=== PATIENT | male | born 1955 | race Caucasian/White ===

== ENCOUNTER 2017-04-30 09:10 | Inpatient (IN) | payer MEDICAID, OTHER ==
[~2017-04-30] VITALS: Ht 172.7 cm; Wt 70.0 kg
[~2017-04-30 09:10] MED LIST: BENZ1TAB PO; DIVA500T3 PO; GABA100C4 PO; HALO100I IM; MELO7.5T4 PO; MIRTA15 PO; OLAN10TA PO; TRAZ100T4 PO
[2017-04-30 09:11] VITALS: BP 130/86; PULSE 60; RESP 20; TEMP 97.7; O2SAT 96
[2017-04-30] MEDS ORDERED: TRAZ100T6 PO (09:32)
--- NOTE | 2017-04-30 09:38 | PD ---
HPI Chief Complaint: Psychiatric Symptoms Time Seen by Provider: 09:34 Travel History International Travel<30 days: No Contact w/Intl Traveler<30days: No Traveled to known affect area: No History of Present Illness HPI This is a 61-year-old male who presents to the emergency department with a history of paranoid schizophrenia reporting that his hallucinations are getting worse. He says he is hearing voices. He is not having thoughts of hurting himself or others but he said he tried to walk into the road at [facility] and that worried them and they sent him here. He denies any other complaints. PFSH Past Medical History Arthritis: Yes (IN LEGS ) Autoimmune Disease: No Blood Disorders: No Anxiety: Yes Depression: Yes Cancer: No Chemotherapy: No Chest Pain: No Congestive Heart Failure: No COPD: Yes Cerebrovascular Accident: No Diabetes: No (Per patient) Diminished Hearing: No Endocrine: No Gastrointestinal Disorders: No GERD: No Genitourinary: No Hiatal Hernia: No Immune Disorder: No Implanted Vascular Access Dvce: No Kidney Stones: No Musculoskeletal: Yes Neurologic: No Psychiatric: Yes (Inpatient, outpatient, psychotropic medications, dx of schizophrenia) Reproductive: No Respiratory: Yes (COPD) Immunizations Current: Yes Migraines: No Radiation Therapy: No Renal Failure: No Schizophrenia: Yes Seizures: No Sickle Cell Disease: No Thyroid Disease: No Ulcer: No Tetanus Vaccination: > 5 Years Influenza Vaccination: No ?: Not Past Surgical History Abdominal Surgery: Yes (GALL BLADDER REMOVED) AICD: No Arteriovenous Shunt: No Cardiac Surgery: No Cholecystectomy: Yes Ear Surgery: No Endocrine Surgery: No Eye Surgery: No Genitourinary Surgery: No Gynecologic Surgery: No Insulin Pump: No Joint Replacement: No Oral Surgery: No Pacemaker: No Thoracic Surgery: No Other Surgery: Yes Social History Alcohol Use: No Tobacco Use: Yes Substance Use: No (Patient denies. ) Allergies-Medications (Allergen,Severity, Reaction): Coded Allergies: No Known Allergies (Verified , 04/30/17) Per MAR faxed by [facility] Jono [phone]. Reported Meds & Prescriptions Reported Meds & Active Scripts Active Olanzapine 10 Mg Tab 10 Mg PO BID 15 Days Mirtazapine 15 Mg Tab 15 Mg PO HS 15 Days Divalproex ER (Divalproex Sodium) 500 Mg Tab 1,000 Mg PO HS 15 Days Reported Trazodone (Trazodone HCl) 100 Mg Tablet 100 Mg PO HS Haloperidol Decanoate Inj (Haloperidol Decanoate) 100 Mg/Ml Inj 100 Mg IM Q14D Gabapentin 100 Mg Cap 100 Mg PO TID Review of Systems Except as stated in HPI: all other systems reviewed are Neg Physical Exam Narrative GENERAL:Well appearing, no acute distress SKIN: Focused skin assessment warm and dry. HEAD: Atraumatic. Normocephalic. EYES: Pupils equal and round. No injection or drainage. ENT: Moist mucous membranes NECK: Trachea midline. CARDIOVASCULAR: Regular rate and rhythm. No murmur appreciated. RESPIRATORY: Clear to auscultation. Breath sounds equal bilaterally. GASTROINTESTINAL: Abdomen soft, non-tender, nondistended. MUSCULOSKELETAL: No obvious deformities. NEUROLOGICAL: Awake and alert. No obvious cranial nerve deficits. Moving all extremities. PSYCHIATRIC: Flat affect, acknowledging auditory hallucinations, no SI or HI Data Data Last Documented VS Vital Signs Date Time Temp Pulse Resp B/P Pulse Ox O2 Delivery O2 Flow Rate FiO2 04/30/17 09:23 65 18 04/30/17 09:11 97.7 130/86 96 Room Air Orders Complete Blood Count With Diff (04/30/17 09:36) Basic Metabolic Panel (Bmp) (04/30/17 09:36) Alcohol (Ethanol) (04/30/17 09:36) Drug Screen, Random Urine (04/30/17 09:36) Psych Screen (04/30/17 10:02) Diet Regular Basic (04/30/17 Lunch) Labs Laboratory Tests Test 04/30/17 04/30/17 09:30 11:25 White Blood Count 4.6 TH/MM3 Red Blood Count 4.58 MIL/MM3 Hemoglobin 14.1 GM/DL Hematocrit 40.5 % Mean Corpuscular Volume 88.5 FL Mean Corpuscular Hemoglobin 30.7 PG Mean Corpuscular Hemoglobin 34.7 % Concent Red Cell Distribution Width 14.9 % Platelet Count 227 TH/MM3 Mean Platelet Volume 7.5 FL Neutrophils (%) (Auto) 39.2 % Lymphocytes (%) (Auto) 43.2 % Monocytes (%) (Auto) 9.0 % Eosinophils (%) (Auto) 7.5 % Basophils (%) (Auto) 1.1 % Neutrophils # (Auto) 1.8 TH/MM3 Lymphocytes # (Auto) 2.0 TH/MM3 Monocytes # (Auto) 0.4 TH/MM3 Eosinophils # (Auto) 0.3 TH/MM3 Basophils # (Auto) 0.0 TH/MM3 CBC Comment DIFF FINAL Differential Comment Sodium Level 145 MEQ/L Potassium Level 4.2 MEQ/L Chloride Level 109 MEQ/L Carbon Dioxide Level 32.4 MEQ/L Anion Gap 4 MEQ/L Blood Urea Nitrogen 20 MG/DL Creatinine 0.80 MG/DL Estimat Glomerular Filtration 98 ML/MIN Rate Random Glucose 70 MG/DL Calcium Level 8.7 MG/DL Ethyl Alcohol Level LESS THAN 3 MG/DL Urine Opiates Screen NEG Urine Barbiturates Screen NEG Urine Amphetamines Screen NEG Urine Benzodiazepines Screen NEG Urine Cocaine Screen NEG Urine Cannabinoids Screen NEG MDM Medical Decision Making Medical Screen Exam Complete: Yes Emergency Medical Condition: Yes Interpretation(s) Afebrile, no tachycardia, normotensive No leukocytosis Electrolytes are reassuring Drug screen is negative Alcohol negative Differential Diagnosis Schizophrenia, bipolar disorder, psychosis, electrolyte abnormality Narrative Course This is a 61-year-old male who presents to the emergency department with increased auditory hallucinations. Labs are obtained which are reassuring. He has no medical complaints. I Think he is medically cleared to be evaluated by psychiatry. The plan is for admission for schizophrenia. Diagnosis Primary Impression: Schizophrenia Qualified Code: F20.89 - Other schizophrenia Admitting Information Admitting Physician Requests: it Rukhsana Farias MD Apr 30, 2017 09:38
[2017-04-30 09:50] LABS: AUTOMATED NEUTROPHIL # 1.8 TH/MM3 (1.8-7.7); BASOPHIL % 1.1 % (0.0-2.0); EOSINOPHIL # 0.3 TH/MM3 (0-0.4); EOSINOPHIL % 7.5 % (0.0-4.0); HEMATOCRIT 40.5 % (39.0-51.0); HEMO FLAGS DIFF FINAL; LYMPH % 43.2 % (9.0-44.0); MEAN CELL VOLUME 88.5 FL (80.0-100.0); MEAN CORPUSCULAR HEMOGLOBIN 30.7 PG (27.0-34.0); MEAN CORPUSCULAR HGB CONC 34.7 % (32.0-36.0); NEUT % 39.2 % (16.0-70.0); PLATELET COUNT 227 TH/MM3 (150-450); RED BLOOD COUNT 4.58 MIL/MM3 (4.50-5.90); RED CELL DISTRIBUTION WIDTH 14.9 % (11.6-17.2); WHITE BLOOD COUNT 4.6 TH/MM3 (4.0-11.0)
[2017-04-30 10:20] LABS: ANION GAP 4 MEQ/L (5-15); BICARBONATE 32.4 MEQ/L (21.0-32.0); BLOOD UREA NITROGEN 20 MG/DL (7-18); CHLORIDE 109 MEQ/L (98-107); GLOMERULAR FILTRATION RATE 98 ML/MIN (>89); POTASSIUM 4.2 MEQ/L (3.5-5.1); SODIUM (NA) 145 MEQ/L (136-145)
[2017-04-30 11:58] LABS: AMPHETAMINE, URINE NEG (NEG); BARBITURATES, URINE NEG (NEG); COCAINE, URINE NEG (NEG)
[2017-04-30] MEDS ORDERED: BENZTROPINE MESYLATE 1 MG TAB PO PRN (13:30)
[2017-04-30] MEDS ORDERED: MAGNESIUM HYDROXIDE SUSP 30 ML CUP PO PRN (13:30)
[2017-04-30] MEDS ORDERED: ACETAMINOPHEN 325 MG TAB PO PRN (13:30)
[2017-04-30] MEDS ORDERED: diphenhydrAMINE HCL 50 MG/ML VIAL IM PRN (13:30)
[2017-04-30] MEDS ORDERED: LORazepam 2 MG/ML VIAL IM PRN ×2 (13:30)
[2017-04-30] MEDS ORDERED: LORazepam 0.5 MG TAB PO PRN (13:30)
[2017-04-30] MEDS ORDERED: LORazepam 1 MG TAB PO PRN (13:30)
[2017-04-30] MEDS ORDERED: ALUMINUM/MAGNESIUM/SIMETH 30 ML CUP PO PRN (13:30)
[2017-04-30] MEDS ORDERED: diphenhydrAMINE HCL 50 MG CAP PO PRN (13:30)
--- NOTE | 2017-04-30 13:48 | HHI.HP ---
Provisional Diagnosis Admission Date Apr 30, 2017 at 13:23 [place]. Chronic paranoid schizophrenia Certification of Person's Competence To Provide Express and Informed Consent I have personally examined Evert Flowers , a person being served at [facility] on, Apr 30, 2017 13:38. Express and informed consent means consent voluntarily given in writing, by a competent person, after sufficient explanation and disclosure of the subject matter involved to enable the person to make a knowing and willful decision without any element of force, fraud, deceit, duress, or other form of constraint or coercion. This person is 18 years of age or older, is not now known to be incompetent to consent to treatment with a guardian advocate, and does not have a health care surrogate or proxy currently making medical treatment decisions. I have found this person to be one of the following: [X] Competent to provide express and informed consent, as defined above, for voluntary admission to this facility and is competent to provide express and informed consent for treatment. He/she has the consistent capacity to make well reasoned, willful, and knowing decisions concerning his or her medical or mental health treatment. The person fully and consistently understands the purpose of the admission for examination/placement and is fully capable of personally exercising all rights assured [place] Incompetent to provide express and informed consent to voluntary admission, and this is incompetent to provide express and informed consent to treatment. The person must be transferred to involuntary status and a petition for a guardian advocate filed with the Circuit Court. [] Refusing to provide express and informed consent to voluntary admission but is competent to provide express and informed consent for treatment. The person must be discharged or transferred to involuntary status. Form shall be completed within 24 hours of a person's arrival at the receiving facility and filed in the clinical record of each person: 1. Admitted on a voluntary basis 2. Permitted to provide express and informed consent to his/her own treatment 3. Allowed to transfer from involuntary to voluntary status 4. Prior to permitting a person to consent to his or her own treatment after having been previously found incompetent to consent to treatment. History of Present Illness Capacity: Has Capacity HPI This is a 61-year-old male with a multiyear history of chronic paranoid schizophrenia admitted for psychotic symptoms and dangerous behavior. Apparently he resides at an [facility], and was lying down in the street, having to be avoided by cars. The patient is complaining of auditory hallucinations which have been occurring for days and are constant and unrelenting. These hallucinations are critical and denigrating to the patient. He is unable to resist them and states his current medications have not been sufficiently effective to subdue them. The patient also reports paranoia in general and is fearful of other people including medical and mental health care specialist. He is worried that the medicines he is taking are poisoning him. Indeed, the patient appears to have facial asymmetry and a speech impediment which may be due to tardive dyskinesia. The patient is currently denying suicidal or homicidal ideation, plan or intent. However, his actions represent poor judgment, hallucinations, paranoia, thought blocking and he is at high risk for self-harm. Patient reports he has been compliant with his Haldol and Zyprexa. Furthermore , he denies a history of alcohol or substance abuse. Review of Systems Except as stated in HPI: all other systems reviewed are Neg Past Psych History Psychological trauma history Patient has been previously admitted here at [place] with a diagnosis of schizophrenia he denies psychological traumas. Violence risk - others (6 mos) Minimal Violence risk - self (6 mos) High Substance Abuse History Drugs/Alcohol past 12 months Denied Past Family Social History Coded Allergies: No Known Allergies (Verified , 04/30/17) Per MAR faxed by [facility]o [phone]. Active Scripts Olanzapine 10 Mg Tab10 Mg PO BID 15 Days Ref 1 Prov:Jose Luis Turner MD 10/20/16 Mirtazapine 15 Mg Tab15 Mg PO HS 15 Days Ref 1 Prov:Jose Luis Turner MD 10/20/16 Divalproex ER 500 Mg Tab1,000 Mg PO HS 15 Days Ref 1 Prov:Jose Luis Turner MD 10/20/16 Reported Medications Trazodone 100 Mg [id number] Mg PO HS #30 TAB Ref 0 04/30/17 Meloxicam 7.5 Mg Tab7.5 Mg PO DAILY Ref 0 10/17/16 Haloperidol Decanoate Inj 100 Mg/Ml [id number] Mg IM Q14D #1 VIAL Ref 0 10/17/16 Gabapentin 100 Mg [id number] Mg PO TID #90 CAP Ref 0 10/17/16 Current Medications Medications (Trade) Dose Ordered Sig/Feroz Route Start Time Stop Time Status Last Admin (Ativan) 1 mg Q6H PRN PO 04/30/17 13:30 UNV (Ativan Inj) 1 mg Q6H PRN IM 04/30/17 13:30 UNV (Ativan) 0.5 mg Q12H PRN PO 04/30/17 13:30 UNV (Ativan Inj) 0.5 mg Q12H PRN IM 04/30/17 13:30 UNV (Benadryl) 50 mg Q6H PRN PO 04/30/17 13:30 UNV (Benadryl Inj) 50 mg Q6H PRN IM 04/30/17 13:30 UNV (Tylenol) 650 mg Q4H PRN PO 04/30/17 13:30 UNV (Milk Of Magnesia Liq) 30 ml DAILY PRN PO 04/30/17 13:30 UNV (Mag-Al Plus Susp Liq) 30 ml Q6H PRN PO 04/30/17 13:30 UNV (Cogentin) 1 mg Q12H PRN PO 04/30/17 13:30 UNV Family History Denied for mental illness and substance abuse as well as alcoholism Social History Patient is unemployed. He receives Social Security disability. He is not . He denies a history of alcohol or drug abuse. Patient's Strengths (min. 2) Verbal and resilient. Physical Exam GENERAL: SKIN: Warm and dry. HEAD: Normocephalic. EYES: No scleral icterus. No injection or drainage. NECK: Supple, trachea midline. No JVD or lymphadenopathy. CARDIOVASCULAR: Regular rate and rhythm without murmurs, gallops, or rubs. RESPIRATORY: Breath sounds equal bilaterally. No accessory muscle use. GASTROINTESTINAL: Abdomen soft, non-tender, nondistended. MUSCULOSKELETAL: No cyanosis, or edema. BACK: Nontender without obvious deformity. No CVA tenderness. Vital Signs Vital Signs Date Time Temp Pulse Resp B/P Pulse Ox O2 Delivery O2 Flow Rate FiO2 04/30/17 09:23 65 18 04/30/17 09:11 97.7 130/86 96 Room Air Mental Status Examination Speech: Slow, Other Orientation: x3 Memory: Unremarkable Thought Process: Thought Blocking Thought Content: Bizarre thinking, Paranoid Hallucination Type: Auditory Attention and Concentration: Abnormal Suicidal Ideation: No Previous Suicide Attempts: Yes Homicidal Ideation: No Previous Homicide Attempts: No Insight: Fair Judgment: Unrealistic Affect: Anxious Mood: Anxious Motor Activity: Normal gait Assessment & Plan Problem List: (1) Acute exacerbation of chronic paranoid schizophrenia ICD Code: F20.0 Assessment & Plan Estimated LOS: days this is a 61-year-old man with a long history of chronic paranoid schizophrenia, currently having an acute exacerbation. He is having auditory hallucinations and increasing paranoia. The hallucinations have not been responsive to treatment with Haldol and Zyprexa. The patient put himself in front of traffic in the middle of the street today. He does not appear to have adequate insight or judgment with regard to his behavior. He continues to appear to respond to internal stimuli. He is considered at high risk for self- harm. The patient is being admitted for observation, evaluation and alteration of medications. He indicates that the Haldol and Zyprexa he has been taking are not working. He has not tried Abilify and this physician started him on this medicine with the idea that he may be placed on long-acting Abilify before he leaves. He will be remaining on close observation for now. This physician also ordered a CBC and comprehensive metabolic profile to ensure he does not have a infectious process or metabolic process which is exacerbating his underlying psychosis. For this reason, he will also get a TSH level and case hyper or hypo-thyroidism is causing his psychosis. A Depakote level will be obtained to determine if it is therapeutic and if the patient is being compliant with that medication. The patient will also have vitamin B 12 and vitamin D levels checked because cognitive impairment can be the result of a lack of vitamin D or B-12. Finally, we will obtain an EKG to rule out any cardiac conduction problems which might be exacerbated by his current multiple antipsychotics. This physician spoke with the patient's nurse regarding his current and recent behavior. This physician will contact the patient's patient case coordinator to obtain further history and appropriate disposition planning. Dustin Cary MD Apr 30, 2017 13:48
[2017-04-30 14:10] VITALS: BP 130/93; PULSE 66; RESP 20; O2SAT 96
[2017-04-30 16:20] VITALS: BP 119/77; PULSE 71; RESP 18; TEMP 97.2; O2SAT 97
[2017-04-30] MEDS: GABAPENTIN 100 MG CAP PO SCH (18:00)
[2017-04-30] MEDS: MIRTAZAPINE 15 MG TAB PO SCH (21:20)
[2017-04-30] MEDS: ARIPiprazole 10 MG TAB PO SCH (21:20)
[2017-04-30] MEDS: traZODone HCL 100 MG TAB PO SCH (21:20)
[2017-04-30] MEDS: DIVALPROEX SODIUM E.R. 500 MG TAB PO SCH (21:21)
[2017-05-01 05:33] VITALS: BP 106/68; PULSE 50; RESP 16; TEMP 97.4; O2SAT 93
[2017-05-01] MEDS: GABAPENTIN 100 MG CAP PO SCH ×3 (08:17→17:53)
[2017-05-01] MEDS: MELOXICAM 7.5 MG TAB PO SCH (08:17)
[2017-05-01] MEDS ORDERED: PNEUMOCOCCAL POLYVALENT INJ 25 MCG/0.5 ML SYR IM ONE (10:00)
[2017-05-01 10:34] LABS: AUTOMATED NEUTROPHIL # 2.3 TH/MM3 (1.8-7.7); BASOPHIL % 0.9 % (0.0-2.0); EOSINOPHIL # 0.3 TH/MM3 (0-0.4); EOSINOPHIL % 5.8 % (0.0-4.0); HEMO FLAGS DIFF FINAL; LYMPH % 38.5 % (9.0-44.0); LYMPHOCYTE # 1.9 TH/MM3 (1.0-4.8); MEAN CELL VOLUME 89.2 FL (80.0-100.0); MEAN CORPUSCULAR HEMOGLOBIN 30.6 PG (27.0-34.0); MEAN CORPUSCULAR HGB CONC 34.3 % (32.0-36.0); MONO % 8.9 % (0.0-8.0); NEUT % 45.9 % (16.0-70.0); PLATELET COUNT 201 TH/MM3 (150-450); RED BLOOD COUNT 4.27 MIL/MM3 (4.50-5.90); RED CELL DISTRIBUTION WIDTH 14.5 % (11.6-17.2)
[2017-05-01 10:52] LABS: ALT (GPT) 21 U/L (12-78); ANION GAP 5 MEQ/L (5-15); AST (GOT) 12 U/L (15-37); BICARBONATE 31.7 MEQ/L (21.0-32.0); BLOOD UREA NITROGEN 17 MG/DL (7-18); CHLORIDE 106 MEQ/L (98-107); GLOMERULAR FILTRATION RATE 98 ML/MIN (>89); SODIUM (NA) 143 MEQ/L (136-145)
[2017-05-01 11:17] LABS: ALKALINE PHOSPHATASE 46 U/L (45-117); LDL CHOLESTEROL 82 MG/DL (0-99); TOTAL BILIRUBIN ADULT 0.3 MG/DL (0.2-1.0)
[2017-05-01 18:05] VITALS: BP 132/60; PULSE 61; RESP 18; TEMP 97.4; O2SAT 98
--- NOTE | 2017-05-01 18:55 | HHI.PYPN ---
Subjective Remarks Pt seen and discussed with staff. Pt reports that his thoughts are clear today and he slept better last night. He has been pacing hallways and continues to respond to internal stimuli. He is compliant with medication and denies side effects. No SI/HI Objective Alert: Yes [place]: Person, Place, Date Mood: Calm Affect: Flat Memory Intact: Immediate, Recent, Remote Hallucinations: Auditory Delusions: Yes Delusion Type: Grandiose, Paranoid Suicidal: Ideation (denies) Homicidal: Ideation (denies) Insight/Judgment poor Labs Test 05/01/17 10:03 White Blood Count 5.0 TH/MM3 Red Blood Count 4.27 MIL/MM3 Hemoglobin 13.0 GM/DL Hematocrit 38.0 % Mean Corpuscular Volume 89.2 FL Mean Corpuscular Hemoglobin 30.6 PG Mean Corpuscular Hemoglobin 34.3 % Concent Red Cell Distribution Width 14.5 % Platelet Count 201 TH/MM3 Mean Platelet Volume 7.7 FL Neutrophils (%) (Auto) 45.9 % Lymphocytes (%) (Auto) 38.5 % Monocytes (%) (Auto) 8.9 % Eosinophils (%) (Auto) 5.8 % Basophils (%) (Auto) 0.9 % Neutrophils # (Auto) 2.3 TH/MM3 Lymphocytes # (Auto) 1.9 TH/MM3 Monocytes # (Auto) 0.4 TH/MM3 Eosinophils # (Auto) 0.3 TH/MM3 Basophils # (Auto) 0.0 TH/MM3 CBC Comment DIFF FINAL Differential Comment Sodium Level 143 MEQ/L Potassium Level 4.0 MEQ/L Chloride Level 106 MEQ/L Carbon Dioxide Level 31.7 MEQ/L Anion Gap 5 MEQ/L Blood Urea Nitrogen 17 MG/DL Creatinine 0.80 MG/DL Estimat Glomerular Filtration 98 ML/MIN Rate Random Glucose 69 MG/DL Calcium Level 8.2 MG/DL Total Bilirubin 0.3 MG/DL Aspartate Amino Transf 12 U/L (AST/SGOT) Alanine Aminotransferase 21 U/L (ALT/SGPT) Alkaline Phosphatase 46 U/L Total Protein 6.8 GM/DL Albumin 2.9 GM/DL Triglycerides Level 92 MG/DL Cholesterol Level 129 MG/DL LDL Cholesterol 82 MG/DL HDL Cholesterol 29.0 MG/DL Cholesterol/HDL Ratio 4.44 RATIO Vitamin B12 Level 499 PG/ML 25-Hydroxy Vitamin D Total 37.9 ng/ML Thyroid Stimulating Hormone 2.480 uIU/ML 3rd Gen Valproic Acid (Depakene) Level 76 MCG/ML Vitals/IOs Vital Signs Date Time Temp Pulse Resp B/P Pulse Ox O2 Delivery O2 Flow Rate FiO2 05/01/17 18:05 97.4 61 18 132/60 98 04/30/17 14:10 Room Air Assessment & Plan Problem List: (1) Acute exacerbation of chronic paranoid schizophrenia ICD Code: F20.0 Assessment & Plan Continue current tx plan. Estimated LOS: days Justification for Cont. Inpt. impairments in reality construction Velma Rowe MD May 01, 2017 18:55
[2017-05-01] MEDS: ARIPiprazole 10 MG TAB PO SCH (21:13)
[2017-05-01] MEDS: MIRTAZAPINE 15 MG TAB PO SCH (21:13)
[2017-05-01] MEDS: traZODone HCL 100 MG TAB PO SCH (21:13)
[2017-05-01] MEDS: DIVALPROEX SODIUM E.R. 500 MG TAB PO SCH (21:13)
[2017-05-02 04:57] VITALS: BP 117/68; PULSE 49; RESP 16; TEMP 97.6; O2SAT 96
[2017-05-02] MEDS: GABAPENTIN 100 MG CAP PO SCH ×3 (08:51→17:17)
[2017-05-02] MEDS: MELOXICAM 7.5 MG TAB PO SCH (08:51)
--- NOTE | 2017-05-02 15:56 | HHI.PYPN ---
Subjective Remarks Pt seen and discussed with staff. He has been sleeping most of the day, but has come out for meals. He remains internally preoccupied and has been observed having conversations with unseen entities. Compliant with medications. No SI/HI Objective Alert: Yes [place]: Person, Place, Date Mood: Calm Affect: Flat Memory Intact: Immediate, Recent, Remote Hallucinations: Auditory Delusions: Yes Delusion Type: Paranoid Suicidal: Ideation (denies) Homicidal: Ideation (denies) Insight/Judgment poor Vitals/IOs Vital Signs Date Time Temp Pulse Resp B/P Pulse Ox O2 Delivery O2 Flow Rate FiO2 05/02/17 04:57 97.6 49 16 117/68 96 04/30/17 14:10 Room Air Intake and Output 05/01/17 05/01/17 05/02/17 08:00 16:00 00:00 Intake Total 320 ml Balance 320 ml Assessment & Plan Problem List: (1) Acute exacerbation of chronic paranoid schizophrenia ICD Code: F20.0 Assessment & Plan Continue current tx plan. Estimated LOS: days Justification for Cont. Inpt. risk of decompensation Velma Rowe MD May 02, 2017 15:56
[2017-05-02 18:28] VITALS: BP 103/60; PULSE 58; RESP 18; TEMP 99.1; O2SAT 96
[2017-05-02] MEDS: traZODone HCL 100 MG TAB PO SCH (20:44)
[2017-05-02] MEDS: DIVALPROEX SODIUM E.R. 500 MG TAB PO SCH (20:45)
[2017-05-02] MEDS: ARIPiprazole 10 MG TAB PO SCH (20:45)
[2017-05-02] MEDS: MIRTAZAPINE 15 MG TAB PO SCH (20:45)
[2017-05-03] MEDS: GABAPENTIN 100 MG CAP PO SCH ×2 (09:00→13:00)
[2017-05-03] MEDS: MELOXICAM 7.5 MG TAB PO SCH (09:00)
[2017-05-03] MEDS ORDERED: GABA100C4 PO (12:42)
[2017-05-03] MEDS ORDERED: MIRTA15 PO (12:42)
[2017-05-03] MEDS ORDERED: TRAZ100T6 PO (12:42)
[2017-05-03] MEDS ORDERED: DIVA500T3 PO (12:42)
[2017-05-03] MEDS ORDERED: ARIP400I IM (12:42)
[2017-05-03] MEDS ORDERED: ARIP1TAB12 PO (12:42)
--- NOTE | 2017-05-03 12:43 | HHI.DS ---
Psychiatry Discharge Summary Inpatient Psychiatric care?: Yes Advance Directive: No Reason Not Provided: Due to Patient Condition Mental Health AdvanceDirective: No Health Care Proxy: No Admission Admission Date Apr 30, 2017 at 13:23 Admission Diagnosis: (1) Schizophrenia ICD Code: F20.9 Brief History This is a 61-year-old male with a multiyear history of chronic paranoid schizophrenia admitted for psychotic symptoms and dangerous behavior. Apparently he resides at an [facility], and was lying down in the street, having to be avoided by cars. The patient is complaining of auditory hallucinations which have been occurring for days and are constant and unrelenting. These hallucinations are critical and denigrating to the patient. He is unable to resist them and states his current medications have not been sufficiently effective to subdue them. The patient also reports paranoia in general and is fearful of other people including medical and mental health floor care technician. He is worried that the medicines he is taking are poisoning him. Indeed, the patient appears to have facial asymmetry and a speech impediment which may be due to tardive dyskinesia. The patient is currently denying suicidal or homicidal ideation, plan or intent. However, his actions represent poor judgment, hallucinations, paranoia, thought blocking and he is at high risk for self-harm. Patient reports he has been compliant with his Haldol and Zyprexa. Furthermore , he denies a history of alcohol or substance abuse. Tobacco Use In Past 30 Days: No Tobacco Past 30 Days Alcohol Use: Never Hospital Course Patient was admitted to a locked, inpatient psychiatric unit. Appropriate precautions were in place throughout patient's hospital stay. The patient was seen and examined daily on the unit by psychiatry and also visited by counselor. Psychotropic medications were adjusted. The patient will be started on long-acting injectable Abilify prior to discharge as he is tolerating oral agent well to improve adherence and promote stability in the community. Patient had improvement in his presenting psychiatric symptoms during the course of his hospital stay. He remained in good behavioral control and there was no evidence of any suicidality or homicidality on the inpatient unit. Charting indicates that the patient has been sleeping and eating well. Counselor has called to patient's facility, and they are agreeable to accepting the patient back today. On the day of discharge: Patient seen and examined with nurse. Chart reviewed. Case discussed with nursing after. No staff. The patient has been no behavioral problem overnight. On my examination today, the patient is calm and cooperative. He feels improved versus admission. He feels ready to leave the hospital and return to his facility at this time. He denies any suicidal or homicidal ideation, intent or plan. He denies any audiovisual hallucinations. He denies any command auditory hallucinations. I can elicit no delusional material. Mood is stable and I can elicit no depressive or hypomanic/manic symptoms. He denies any side effects from medications. He offers no physical complaints. Weighing the acute, chronic, and protective factors and based on the available evidence, I process developer to a reasonable degree of medical certainty that the patient is at low imminent risk of harm to self or others from a mental illness as defined under the [place] act and his level of function is adequate for outpatient care. Patient will be discharged back to facility today with psychiatric follow-up as arranged by counselor. Patient is also follow-up with primary care. Patient is to return to the psychiatric emergency room for any concerning psychiatric symptoms. Results Blood Pressure 103 / 60 Vital Signs Date Time Temp Pulse Resp B/P Pulse Ox O2 Delivery O2 Flow Rate FiO2 05/02/17 18:28 99.1 58 18 103/60 96 04/30/17 14:10 Room Air Laboratory Tests Test 05/01/17 10:03 Red Blood Count 4.27 MIL/MM3 (4.50-5.90) Hematocrit 38.0 % (39.0-51.0) Monocytes (%) (Auto) 8.9 % (0.0-8.0) Eosinophils (%) (Auto) 5.8 % (0.0-4.0) Random Glucose 69 MG/DL (74-106) Calcium Level 8.2 MG/DL (8.5-10.1) Aspartate Amino Transf 12 U/L (15-37) (AST/SGOT) Albumin 2.9 GM/DL (3.4-5.0) HDL Cholesterol 29.0 MG/DL (40.0-60.0) Laboratory Results Test 05/01/17 10:03 Triglycerides Level 92 MG/DL (42-150) Cholesterol Level 129 MG/DL (120-200) LDL Cholesterol 82 MG/DL (0-99) HDL Cholesterol 29.0 MG/DL (40.0-60.0) Valproic Acid (Depakene) Level 76 MCG/ML (50-100) Summary of Procedures None done Imaging None done Pending results at discharge: No Medications # of Antipsychotic meds at D/C: 1 Approp Antipsych med options 1 - Minimum of three failed multiple trials of monotherapy. 2 - Documented plan to taper to monotherapy due to previous use of multiple meds OR cross-taper in progress at D/C. 3 - Documentation of augmentation of Clozapine. 4 - Justification other than those listed in allowable values 1-3, document here : Discharge Discharge Date: May 03, 2017 Discharge Diagnosis: (1) Schizophrenia Diagnosis: Principal (stabilized) ICD Code: F20.9 GAF on discharge is 55. Mental Status Exam at Disch Patient is in hospital gown. He is well groomed. He is awake and alert and oriented to person and hospital at least. No evidence of delirium. No abnormal motor movements noted. Speech is within normal limits for rate, tone and volume. Language and fund of knowledge seemed average. Focus and concentration grossly intact. Memory grossly intact on clinical exam. Mood is fair and affect is blunted. Thought process linear. No loosening of associations. No evident delusional material. Denies audiovisual hallucinations and does not appear internally preoccupied at this time. Denies suicidal or homicidal ideation, intent or plan. Insight and judgment are likely chronically poor. Pt Condition on Discharge: Stable Discharge Disposition: ACLF/ULYSSES Discharge Instructions Diet Instructions: As Tolerated, No Restrictions Activities you can perform: Weight Bearing as Jolynn Scheduled Appointment: as per counselor's notes New Medications: Aripiprazole ER Inj (Abilify Maintena ER Inj) 400 Mg Susp 400 MG IM Q28D This dose of Abilify Maintena is due on 05/31/17. Mental Health # 1 Ref 0 INJECTION Aripiprazole (Aripiprazole) 10 Mg Tab 10 MG PO HS Continue Abilify by mouth for 2 weeks then stop. Be sure to get your next Abilify Maintena injection. Mental Health Days 15 Ref 1 TAB Continued Medications: Divalproex ER (Divalproex ER) 500 Mg Tab 1000 MG PO HS Mental Health Days 15 Ref 1 TAB (This prescription has been renewed) Gabapentin (Gabapentin) 100 Mg Cap 100 MG PO TID Health Days 15 Ref 1 CAP (This prescription has been renewed) Meloxicam (Meloxicam) 7.5 Mg Tab 7.5 MG PO DAILY Arthritis Pain Ref 0 TAB Mirtazapine (Mirtazapine) 15 Mg Tab 15 MG PO HS Mental Health Days 15 Ref 1 TAB (This prescription has been renewed) Trazodone (Trazodone) 100 Mg Tablet 100 MG PO HS Sleep Days 15 Ref 1 TAB (This prescription has been renewed) Discontinued Medications: Haloperidol Decanoate Inj (Haloperidol Decanoate Inj) 100 Mg/Ml Inj 100 MG IM Q14D Schizophrenia #1 Ref 0 VIAL Olanzapine (Olanzapine) 10 Mg Tab 10 MG PO BID Mental Health Days 15 Ref 1 TAB Discharge Time <= 30 minutes Discharge/Advance Care Plan Health Problems: (1) Acute exacerbation of chronic paranoid schizophrenia Goals to promote your health * To prevent worsening of your condition and complications * To maintain your health at the optimal level Directions to meet your goals Take your medications as prescribed Follow your dietary instruction Follow activity as directed Keep your appointments as scheduled Take your immunizations and boosters as scheduled If your symptoms worsen call your PCP, if no PCP go to Urgent Care Center or Emergency Room For 31/05 questions related to your inpatient stay or results of tests pending at discharge, please contact Dr. Jose Luis Turner at Smoking is Dangerous to Your Health. Avoid second hand smoking Problem Qualifiers (1) Schizophrenia: Qualified Code: F20.0 - Paranoid schizophrenia Jose Luis Turner MD May 03, 2017 12:43
[2017-05-03] MEDS ORDERED: ABILIFY MAINTENA 400 MG IM SCH (14:00)
[2017-05-03 15:33] LABS: HEMOGLOBIN A1a 1.2 %; HEMOGLOBIN A1b 0.8 %; HEMOGLOBIN Ao 86.2 %; HEMOGLOBIN F 1.2 %; HEMOGLOBIN LA1C 1.2 %; HEMOGLOBIN P3 3.4 %
== END 2017-05-03 16:15 | DRG 885 ==
LOC: NEPD 09:10 → NEDA 13:23 → H260 14:40
PROVIDERS: ADMIT Psychiatry & Neurology Psychiatry; ATTEND Psychiatry & Neurology Psychiatry
DX: F20.0 Paranoid schizophrenia (principal); J44.9 Chronic obstructive pulmonary disease, unspecified; R47.9 Unspecified speech disturbances; M19.90 Unspecified osteoarthritis, unspecified site
CPT/HCPCS: 80048; 80053; 80061; 80164; 80307; 82306; 82607; 83036; 84443; 85025

== ENCOUNTER 2017-05-18 21:44 | Emergency (ER) | payer MEDICAID, OTHER ==
[~2017-05-18] VITALS: Ht 172.7 cm; Wt 70.0 kg
[~2017-05-18 21:44] MED LIST changes: +ARIP1TAB12 PO; +ARIP400I IM; -BENZ1TAB PO; -HALO100I IM; -OLAN10TA PO; -TRAZ100T4 PO; +TRAZ100T6 PO
[2017-05-18 21:46] VITALS: BP 118/83; PULSE 72; RESP 16
--- NOTE | 2017-05-18 21:57 | PD ---
Physical Exam Date Seen by Provider: May 18, 2017 Time Seen by Provider: 21:55 Narrative 61 yo male here for psych eval. Sent here by his residence for evaluation of suicidal statement. History of paranoid schizophrenic. Well known to staff with multiple admissions in the past. He was "dropped off" by someone from the assisted living facility where he resides. Vitals are stable in triage. Awaiting Bed placement. Data Data Last Documented VS Vital Signs Date Time Temp Pulse Resp B/P Pulse Ox O2 Delivery O2 Flow Rate FiO2 05/18/17 21:46 72 16 118/83 Room Air [facility] Medical Record Reviewed: Yes Supervised Visit with DAVIAN: No Raheem Santizo May 18, 2017 21:57
[2017-05-18 22:00] VITALS: TEMP 98; O2SAT 99
[2017-05-18] MEDS ORDERED: HALO5TAB PO (22:42)
[2017-05-18 23:40] LABS: AUTOMATED NEUTROPHIL # 3.1 TH/MM3 (1.8-7.7); BASOPHIL % 0.4 % (0.0-2.0); EOSINOPHIL # 0.1 TH/MM3 (0-0.4); EOSINOPHIL % 1.8 % (0.0-4.0); HEMATOCRIT 42.6 % (39.0-51.0); HEMO FLAGS DIFF FINAL; LYMPH % 46.4 % (9.0-44.0); LYMPHOCYTE # 3.2 TH/MM3 (1.0-4.8); MEAN CELL VOLUME 89.9 FL (80.0-100.0); MEAN CORPUSCULAR HEMOGLOBIN 30.5 PG (27.0-34.0); MEAN CORPUSCULAR HGB CONC 33.9 % (32.0-36.0); MONO % 6.8 % (0.0-8.0); NEUT % 44.6 % (16.0-70.0); PLATELET COUNT 210 TH/MM3 (150-450); RED BLOOD COUNT 4.73 MIL/MM3 (4.50-5.90); RED CELL DISTRIBUTION WIDTH 15.2 % (11.6-17.2); WHITE BLOOD COUNT 6.9 TH/MM3 (4.0-11.0)
[2017-05-19 00:11] LABS: ANION GAP 7 MEQ/L (5-15); AST (GOT) 20 U/L (15-37); BICARBONATE 29.1 MEQ/L (21.0-32.0); BLOOD UREA NITROGEN 20 MG/DL (7-18); CHLORIDE 107 MEQ/L (98-107); GLOMERULAR FILTRATION RATE 80 ML/MIN (>89); POTASSIUM 3.8 MEQ/L (3.5-5.1); SODIUM (NA) 143 MEQ/L (136-145)
[2017-05-19 00:12] LABS: ALT (GPT) 26 U/L (12-78)
[2017-05-19 00:14] LABS: ALKALINE PHOSPHATASE 50 U/L (45-117); TOTAL BILIRUBIN ADULT 0.5 MG/DL (0.2-1.0)
--- NOTE | 2017-05-19 00:56 | PD ---
HPI . Delusions Chief Complaint: Psychiatric Symptoms Time Seen by Provider: 23:07 Travel History International Travel<30 days: No Contact w/Intl Traveler<30days: No Traveled to known affect area: No History of Present Illness HPI This patient presents with a chief complaint of delusions. He states that they started when he was started on Haldol. He denies any homicidal or suicidal ideation. He states that he is not hearing any voices. This patient lives in an assisted living facility and was dropped off here by that facility. He has no medical complaints. PFSH Past Medical History Arthritis: Yes (IN LEGS ) Autoimmune Disease: No Blood Disorders: No Anxiety: Yes Depression: Yes Cancer: No Chemotherapy: No Chest Pain: No Congestive Heart Failure: No COPD: Yes Cerebrovascular Accident: No Diminished Hearing: No Endocrine: No Gastrointestinal Disorders: No GERD: No Genitourinary: No Hiatal Hernia: No Immune Disorder: No Implanted Vascular Access Dvce: No Kidney Stones: No Musculoskeletal: Yes Neurologic: No Psychiatric: Yes Reproductive: No Respiratory: Yes (COPD) Immunizations Current: Yes Migraines: No Radiation Therapy: No Renal Failure: No Schizophrenia: Yes Seizures: No Sickle Cell Disease: No Thyroid Disease: No Ulcer: No Tetanus Vaccination: Unknown Influenza Vaccination: No Past Surgical History Abdominal Surgery: Yes (GALL BLADDER REMOVED) AICD: No Arteriovenous Shunt: No Cardiac Surgery: No Cholecystectomy: Yes Ear Surgery: No Endocrine Surgery: No Eye Surgery: No Genitourinary Surgery: No Gynecologic Surgery: No Insulin Pump: No Joint Replacement: No Oral Surgery: No Pacemaker: No Thoracic Surgery: No Other Surgery: Yes Social History Alcohol Use: Yes Tobacco Use: Yes Substance Use: No (Patient denies. ) Allergies-Medications (Allergen,Severity, Reaction): Coded Allergies: No Known Allergies (Verified , 04/30/17) Per MAR faxed by [employer] [phone]. Reported Meds & Prescriptions Reported Meds & Active Scripts Active Trazodone (Trazodone HCl) 100 Mg Tablet 100 Mg PO HS 15 Days Mirtazapine 15 Mg Tab 15 Mg PO HS 15 Days Divalproex ER (Divalproex Sodium) 500 Mg Tab 1,000 Mg PO HS 15 Days Gabapentin 100 Mg Cap 100 Mg PO TID 15 Days Reported Haloperidol 5 Mg Tab 5 Mg PO BID Meloxicam 7.5 Mg Tab 7.5 Mg PO DAILY Review of Systems Psychiatric: Positive: Disorder of Thought Physical Exam Narrative GENERAL: Awake and alert and in no acute distress. SKIN: Warm and dry. HEAD: Atraumatic. Normocephalic. EYES: Pupils equal and round. NECK: Trachea midline. CARDIOVASCULAR: Regular rate and rhythm. RESPIRATORY: No accessory muscle use. MUSCULOSKELETAL: No obvious deformities. No edema. NEUROLOGICAL: Awake and alert. No obvious cranial nerve deficits. Motor grossly within normal limits. Normal speech. PSYCHIATRIC: Appropriate mood and affect; insight and judgment poor. The patient did not appear to be responding to any internal stimuli during my evaluation. Data Data Last Documented VS Vital Signs Date Time Temp Pulse Resp B/P Pulse Ox O2 Delivery O2 Flow Rate FiO2 05/18/17 22:00 98.0 99 05/18/17 21:46 72 16 118/83 Room Air Orders Complete Blood Count With Diff (05/18/17 23:07) Comprehensive Metabolic Panel (05/18/17 23:07) Psych Screen (05/18/17 23:07) Drug Screen, Random Urine (05/18/17 23:07) Alcohol (Ethanol) (05/18/17 23:07) Labs Laboratory Tests Test 05/18/17 23:25 White Blood Count 6.9 TH/MM3 Red Blood Count 4.73 MIL/MM3 Hemoglobin 14.4 GM/DL Hematocrit 42.6 % Mean Corpuscular Volume 89.9 FL Mean Corpuscular Hemoglobin 30.5 PG Mean Corpuscular Hemoglobin 33.9 % Concent Red Cell Distribution Width 15.2 % Platelet Count 210 TH/MM3 Mean Platelet Volume 7.7 FL Neutrophils (%) (Auto) 44.6 % Lymphocytes (%) (Auto) 46.4 % Monocytes (%) (Auto) 6.8 % Eosinophils (%) (Auto) 1.8 % Basophils (%) (Auto) 0.4 % Neutrophils # (Auto) 3.1 TH/MM3 Lymphocytes # (Auto) 3.2 TH/MM3 Monocytes # (Auto) 0.5 TH/MM3 Eosinophils # (Auto) 0.1 TH/MM3 Basophils # (Auto) 0.0 TH/MM3 CBC Comment DIFF FINAL Differential Comment Sodium Level 143 MEQ/L Potassium Level 3.8 MEQ/L Chloride Level 107 MEQ/L Carbon Dioxide Level 29.1 MEQ/L Anion Gap 7 MEQ/L Blood Urea Nitrogen 20 MG/DL Creatinine 0.95 MG/DL Estimat Glomerular Filtration 80 ML/MIN Rate Random Glucose 73 MG/DL Calcium Level 9.3 MG/DL Total Bilirubin 0.5 MG/DL Aspartate Amino Transf 20 U/L (AST/SGOT) Alanine Aminotransferase 26 U/L (ALT/SGPT) Alkaline Phosphatase 50 U/L Total Protein 8.2 GM/DL Albumin 3.8 GM/DL Ethyl Alcohol Level LESS THAN 3 MG/DL MDM Medical Decision Making Medical Screen Exam Complete: Yes Emergency Medical Condition: Yes Differential Diagnosis Differential diagnosis of psychosis includes but is not limited to schizophrenia , schizoaffective disorder, bipolar disorder, intoxication, substance abuse, dementia Narrative Course This patient presents with chief complaint of delusions. He will be medically cleared and then referred for psychiatric screening. CBC & BMP Diagram 05/18/17 23:25 Tox screen is negative. This patient is medically clear for psychiatric evaluation. Diagnosis Primary Impression: Schizophrenia Qualified Code: F20.0 - Paranoid schizophrenia Condition: Stable Jen Hernandez MD May 19, 2017 00:55
[2017-05-19 03:56] VITALS: BP 145/83; PULSE 54; RESP 16; O2SAT 98
[2017-05-19 04:37] LABS: AMPHETAMINE, URINE NEG (NEG); BARBITURATES, URINE NEG (NEG); COCAINE, URINE NEG (NEG)
[2017-05-19 06:11] VITALS: BP 148/86; PULSE 54; RESP 20; O2SAT 96
[2017-05-19 10:56] VITALS: BP 148/86; PULSE 54; RESP 20; O2SAT 96
== END 2017-05-19 11:34 | disposition home or self-care (01) ==
LOC: NEPD 21:44 → NEPJ 05-19 11:34
DX: F20.0 Paranoid schizophrenia (principal)
CPT/HCPCS: 80053; 80307; 85025; 99283

== ENCOUNTER 2017-05-30 06:16 | Emergency (ER) | payer MEDICAID ==
[~2017-05-30] VITALS: Ht 175.3 cm; Wt 80.0 kg
[~2017-05-30 06:16] MED LIST changes: -ARIP1TAB12 PO; -ARIP400I IM; +HALO5TAB PO
[2017-05-30 06:21] VITALS: BP 137/84; PULSE 62; RESP 18; TEMP 98.1; O2SAT 98
[2017-05-30] MEDS ORDERED: SODIUM CHLORIDE 0.9% FLUSH 10 ML FLUSH IVF PRN (06:30)
--- NOTE | 2017-05-30 06:30 | PD ---
HPI Chief Complaint: Dizziness Time Seen by Provider: 06:28 Travel History International Travel<30 days: No Contact w/Intl Traveler<30days: No Traveled to known affect area: No History of Present Illness HPI Patient comes in by EMS complaining of dizziness intermittently that began around noon yesterday. Patient's when he feels dizzy his heart feels weak. Patient denies any chest pain, shortness of breath, numbness or tingling anywhere, fevers, nausea, vomiting, abdominal pain, back pain, or neck pain. Patient denies anything making it better or worse. Denies anything like this in the past. Per EMS patient told them that he needed to come the ER because he is afraid that he was going to fall today and wanted to be checked out. Patient states he feels like the room is spinning when he gets these dizzy spells. PFSH Past Medical History Arthritis: Yes (IN LEGS ) Autoimmune Disease: No Blood Disorders: No Anxiety: Yes Depression: Yes Cancer: No Chemotherapy: No Chest Pain: No Congestive Heart Failure: No COPD: Yes Cerebrovascular Accident: No Diminished Hearing: No Endocrine: No Gastrointestinal Disorders: No GERD: No Genitourinary: No Hiatal Hernia: No Immune Disorder: No Implanted Vascular Access Dvce: No Kidney Stones: No Musculoskeletal: Yes Neurologic: No Psychiatric: Yes Reproductive: No Respiratory: Yes (COPD) Immunizations Current: Yes Migraines: No Radiation Therapy: No Renal Failure: No Schizophrenia: Yes Seizures: No Sickle Cell Disease: No Thyroid Disease: No Ulcer: No Past Surgical History Abdominal Surgery: Yes (GALL BLADDER REMOVED) AICD: No Arteriovenous Shunt: No Cardiac Surgery: No Cholecystectomy: Yes Ear Surgery: No Endocrine Surgery: No Eye Surgery: No Genitourinary Surgery: No Gynecologic Surgery: No Insulin Pump: No Joint Replacement: No Oral Surgery: No Pacemaker: No Thoracic Surgery: No Other Surgery: Yes Social History Alcohol Use: Yes Tobacco Use: Yes Substance Use: No (Patient denies. ) Allergies-Medications (Allergen,Severity, Reaction): Coded Allergies: No Known Allergies (Verified , 04/30/17) Per MAR faxed by [employer] [phone]. Reported Meds & Prescriptions Reported Meds & Active Scripts Active Meclizine (Meclizine HCl) 12.5 Mg Tab 12.5 Mg PO TID PRN Trazodone (Trazodone HCl) 100 Mg Tablet 100 Mg PO HS 15 Days Mirtazapine 15 Mg Tab 15 Mg PO HS 15 Days Divalproex ER (Divalproex Sodium) 500 Mg Tab 1,000 Mg PO HS 15 Days Gabapentin 100 Mg Cap 100 Mg PO TID 15 Days Reported Haloperidol 5 Mg Tab 5 Mg PO BID Meloxicam 7.5 Mg Tab 7.5 Mg PO DAILY Review of Systems Except as stated in HPI: all other systems reviewed are Neg Physical Exam Narrative GENERAL: Well-developed, well nourished, in no acute distress, and non-ill appearing. SKIN: Focused skin assessment warm and dry. HEAD: Atraumatic. Normocephalic. EYES: Pupils equal and round. EOMI. No scleral icterus. No injection or drainage. ENT: No nasal bleeding or discharge. Mucous membranes pink and moist. NECK: Trachea midline. Supple. No nuclear rigidity. CARDIOVASCULAR: Regular rate and rhythm. No murmur appreciated. RESPIRATORY: No accessory muscle use. No respiratory distress. Clear to auscultation. Breath sounds equal bilaterally. GASTROINTESTINAL: Abdomen soft, non-tender, nondistended, and no guarding. Hepatic and splenic margins not palpable. No pulsatile mass. MUSCULOSKELETAL: No obvious deformities. No clubbing. No cyanosis. No edema. Full range of motion. NEUROLOGICAL: Awake and alert. No obvious cranial nerve deficits. Motor grossly within normal limits. Normal speech. PSYCHIATRIC: Appropriate mood and affect; insight and judgment normal. Data Data Last Documented VS Vital Signs Date Time Temp Pulse Resp B/P Pulse Ox O2 Delivery O2 Flow Rate FiO2 05/30/17 07:15 61 18 154/94 97 Room Air 05/30/17 06:21 98.1 Orders Electrocardiogram (05/30/17 06:26) Basic Metabolic Panel (Bmp) (05/30/17 06:26) Complete Blood Count With Diff (05/30/17 06:26) Magnesium (Mg) (05/30/17 06:26) Ckmb (Isoenzyme) Profile (05/30/17 06:26) Troponin I (05/30/17 06:26) Act Partial Throm Time (Ptt) (05/30/17 06:26) Prothrombin Time / Inr (Pt) (05/30/17 06:26) Urinalysis - C+S If Indicated (05/30/17 06:26) Chest, Single Ap (05/30/17 06:26) Ct Brain W/O Iv Contrast(Rout) (05/30/17 06:26) Ecg Monitoring (05/30/17 06:26) Iv Access Insert/Monitor (05/30/17 06:26) Oximetry (05/30/17 06:26) Sodium Chloride 0.9% Flush (Ns Flush) (05/30/17 06:30) Orthostatic Vital Signs (05/30/17 06:26) Valproic Acid (Depakene) (05/30/17 06:26) Meclizine (Antivert) (05/30/17 06:45) Calcium Carbonate Chew (Tums Chew) (05/30/17 08:00) Labs Laboratory Tests Test 05/30/17 05/30/17 07:10 07:20 White Blood Count 5.9 TH/MM3 Red Blood Count 4.47 MIL/MM3 Hemoglobin 14.0 GM/DL Hematocrit 40.5 % Mean Corpuscular Volume 90.8 FL Mean Corpuscular Hemoglobin 31.4 PG Mean Corpuscular Hemoglobin 34.6 % Concent Red Cell Distribution Width 15.5 % Platelet Count 168 TH/MM3 Mean Platelet Volume 8.3 FL Neutrophils (%) (Auto) 52.1 % Lymphocytes (%) (Auto) 38.1 % Monocytes (%) (Auto) 7.0 % Eosinophils (%) (Auto) 2.4 % Basophils (%) (Auto) 0.4 % Neutrophils # (Auto) 3.1 TH/MM3 Lymphocytes # (Auto) 2.2 TH/MM3 Monocytes # (Auto) 0.4 TH/MM3 Eosinophils # (Auto) 0.1 TH/MM3 Basophils # (Auto) 0.0 TH/MM3 CBC Comment DIFF FINAL Differential Comment Prothrombin Time 11.7 SEC Prothromb Time International 1.1 RATIO Ratio Activated Partial 28.4 SEC Thromboplast Time Sodium Level 139 MEQ/L Potassium Level 3.8 MEQ/L Chloride Level 103 MEQ/L Carbon Dioxide Level 30.5 MEQ/L Anion Gap 6 MEQ/L Blood Urea Nitrogen 19 MG/DL Creatinine 0.65 MG/DL Estimat Glomerular Filtration 124 ML/MIN Rate Random Glucose 78 MG/DL Calcium Level 8.2 MG/DL Magnesium Level 2.0 MG/DL Total Creatine Kinase 82 U/L Troponin I LESS THAN 0.02 NG/ML Valproic Acid (Depakene) Level 82 MCG/ML Urine Color YELLOW Urine Turbidity CLEAR Urine pH 6.5 Urine Specific [place] 1.009 Urine Protein NEG mg/dL Urine Glucose (UA) NEG mg/dL Urine Ketones NEG mg/dL Urine Occult Blood NEG Urine Nitrite NEG Urine Bilirubin NEG Urine Urobilinogen LESS THAN 2.0 MG/DL Urine Leukocyte Esterase NEG Urine RBC 1 /hpf Urine WBC 1 /hpf Microscopic Urinalysis Comment CULT NOT INDICATED MDM Medical Decision Making Medical Screen Exam Complete: Yes Emergency Medical Condition: Yes Interpretation(s) EKG was reviewed by Dr. Chacon. Shows normal sinus rhythm with ventricular rate of 63. No STEMI. Differential Diagnosis Acute coronary syndrome, vertigo, anemia, electrolyte abnormality, dehydration, UTI, sinusitis, tumor, other Narrative Course Patient seen and examined. Patient was placed on a cardiac care unit nurse IV was established. Initial laboratory and radiological studies were ordered. Patient was given a dose of meclizine. Patient signed out the oncoming provider. Please see their documentation for final diagnosis and disposition. Scripts Meclizine 12.5 Mg Tab12.5 Mg PO TID PRN (VERTIGO) #10 TAB Ref 0 Prov:Yarelis Sousa 05/30/17 Adal Taylor May 30, 2017 06:30
[2017-05-30 06:37] VITALS: BP 158/90; RESP 18
[2017-05-30 06:38] VITALS: BP 160/80; RESP 18
[2017-05-30 06:40] VITALS: BP 155/98; RESP 18
[2017-05-30] MEDS ORDERED: MECLIZINE HCL 25 MG TAB PO ONE (06:45)
--- NOTE | 2017-05-30 06:51 | RADRPT ---
EXAM DATE/TIME: 05/30/2017 06:40 [facility] COMPARISON: No previous studies available for comparison. INDICATIONS : Chest pain. MEDICAL HISTORY : None. SURGICAL HISTORY : None. ENCOUNTER: Initial ACUITY: 1 day PAIN SCORE: 6/10 LOCATION: Bilateral chest FINDINGS: A single view of the chest demonstrates the lungs to be symmetrically aerated without evidence of mas s, infiltrate or effusion. The cardiomediastinal contours are unremarkable. Osseous structures are intact. CONCLUSION: No acute disease. Jake Brunner MD on May 30, 2017 at 6:49 Board Certified Radiologist. This report was verified electronically.
--- NOTE | 2017-05-30 06:56 | RADRPT ---
EXAM DATE/TIME: 05/30/2017 06:45 [facility] COMPARISON: CT BRAIN W/O CONTRAST, December 23, 2015, 21:26. INDICATIONS : Dizziness. RADIATION DOSE: 34.35 CTDIvol (mGy) MEDICAL HISTORY : Chronic obstructive pulmonary disease. SURGICAL HISTORY : Cholecystectomy. ENCOUNTER: Initial ACUITY: 1 day PAIN SCALE: 0/10 LOCATION: cranial TECHNIQUE: Multiple contiguous axial images were obtained of the head. Using automated exposure control and adj ustment of the mA and/or kV according to patient size, radiation dose was kept as low as reasonably a chievable to obtain optimal diagnostic quality images. DICOM format image data is available electro nically for review and comparison. FINDINGS: CEREBRUM: The ventricles are normal for age. No evidence of midline shift, mass lesion, hemorrhage or acute in farction. No extra-axial fluid collections are seen. POSTERIOR FOSSA: The cerebellum and brainstem are intact. The 4th ventricle is midline. The cerebellopontine angle i s unremarkable. EXTRACRANIAL: The visualized portion of the orbits is intact. SKULL: The calvaria is intact. No evidence of skull fracture. CONCLUSION: Normal examination. Jake Brunner MD on May 30, 2017 at 6:53 Board Certified Radiologist. This report was verified electronically.
[2017-05-30 07:15] VITALS: BP 154/94; PULSE 61; RESP 18; O2SAT 97
--- NOTE | 2017-05-30 07:15 | PD ---
Physical Exam Date Seen by Provider: May 30, 2017 Time Seen by Provider: 07:12 Narrative 61 YO M with PMH of schizophrenia presents to the ED for evaluation of intermittent dizziness. The patient was initially seen by ASH Herbert and signed out to me with lab work pending. Please see his note for full H&P. The patient was administered meclizine by previous provider. On recheck the patient states that his dizziness has resolved. On my exam: GENERAL: Well-nourished, well-developed white male in no acute distress. SKIN: Focused skin assessment warm/dry. HEAD: Normocephalic. EYES: No scleral icterus. No injection or drainage. NECK: Supple, trachea midline. No JVD or lymphadenopathy. CARDIOVASCULAR: Regular rate and rhythm without murmurs, gallops, or rubs. RESPIRATORY: Breath sounds clear and equal bilaterally. No accessory muscle use. GASTROINTESTINAL: Abdomen soft, non-tender, nondistended. Active bowel sounds MUSCULOSKELETAL: No cyanosis, or edema. Moves extremities spontaneously. NEUROLOGICAL: Awake and alert. Cranial nerves II through XII intact. Motor and sensory grossly within normal limits.5/5 muscle strength in all muscle groups. Normal speech. No pronator drift. BACK: Nontender without obvious deformity. No CVA tenderness. Data Data Last Documented VS Vital Signs Date Time Temp Pulse Resp B/P Pulse Ox O2 Delivery O2 Flow Rate FiO2 05/30/17 07:15 61 18 154/94 97 Room Air 05/30/17 06:21 98.1 Orders Electrocardiogram (05/30/17 06:26) Basic Metabolic Panel (Bmp) (05/30/17 06:26) Complete Blood Count With Diff (05/30/17 06:26) Magnesium (Mg) (05/30/17 06:26) Ckmb (Isoenzyme) Profile (05/30/17 06:26) Troponin I (05/30/17 06:26) Act Partial Throm Time (Ptt) (05/30/17 06:26) Prothrombin Time / Inr (Pt) (05/30/17 06:26) Urinalysis - C+S If Indicated (05/30/17 06:26) Chest, Single Ap (05/30/17 06:26) Ct Brain W/O Iv Contrast(Rout) (05/30/17 06:26) Ecg Monitoring (05/30/17 06:26) Iv Access Insert/Monitor (05/30/17 06:26) Oximetry (05/30/17 06:26) Sodium Chloride 0.9% Flush (Ns Flush) (05/30/17 06:30) Orthostatic Vital Signs (05/30/17 06:26) Valproic Acid (Depakene) (05/30/17 06:26) Meclizine (Antivert) (05/30/17 06:45) Calcium Carbonate Chew (Tums Chew) (05/30/17 08:00) Labs Laboratory Tests Test 05/30/17 05/30/17 07:10 07:20 White Blood Count 5.9 TH/MM3 Red Blood Count 4.47 MIL/MM3 Hemoglobin 14.0 GM/DL Hematocrit 40.5 % Mean Corpuscular Volume 90.8 FL Mean Corpuscular Hemoglobin 31.4 PG Mean Corpuscular Hemoglobin 34.6 % Concent Red Cell Distribution Width 15.5 % Platelet Count 168 TH/MM3 Mean Platelet Volume 8.3 FL Neutrophils (%) (Auto) 52.1 % Lymphocytes (%) (Auto) 38.1 % Monocytes (%) (Auto) 7.0 % Eosinophils (%) (Auto) 2.4 % Basophils (%) (Auto) 0.4 % Neutrophils # (Auto) 3.1 TH/MM3 Lymphocytes # (Auto) 2.2 TH/MM3 Monocytes # (Auto) 0.4 TH/MM3 Eosinophils # (Auto) 0.1 TH/MM3 Basophils # (Auto) 0.0 TH/MM3 CBC Comment DIFF FINAL Differential Comment Prothrombin Time 11.7 SEC Prothromb Time International 1.1 RATIO Ratio Activated Partial 28.4 SEC Thromboplast Time Sodium Level 139 MEQ/L Potassium Level 3.8 MEQ/L Chloride Level 103 MEQ/L Carbon Dioxide Level 30.5 MEQ/L Anion Gap 6 MEQ/L Blood Urea Nitrogen 19 MG/DL Creatinine 0.65 MG/DL Estimat Glomerular Filtration 124 ML/MIN Rate Random Glucose 78 MG/DL Calcium Level 8.2 MG/DL Magnesium Level 2.0 MG/DL Total Creatine Kinase 82 U/L Troponin I LESS THAN 0.02 NG/ML Valproic Acid (Depakene) Level 82 MCG/ML Urine Color YELLOW Urine Turbidity CLEAR Urine pH 6.5 Urine Specific [place] 1.009 Urine Protein NEG mg/dL Urine Glucose (UA) NEG mg/dL Urine Ketones NEG mg/dL Urine Occult Blood NEG Urine Nitrite NEG Urine Bilirubin NEG Urine Urobilinogen LESS THAN 2.0 MG/DL Urine Leukocyte Esterase NEG Urine RBC 1 /hpf Urine WBC 1 /hpf Microscopic Urinalysis Comment CULT NOT INDICATED MDM Medical Record Reviewed: Yes Supervised Visit with DAVIAN: No Differential Diagnosis sinusitis versus ACS versus vertigo versus electrolyte abnormality versus brain lesion versus ICH versus ACS versus other Narrative Course 51-year-old male with history of schizophrenia presents to the ED for evaluation of intermittent dizziness. Patient was initially seen by ASH Avalos and signed out to me with lab work pending. No focal neuro deficits on physical exam. Patient reports a solution of this dizziness on my check. Chest x-ray and EKG (reviewed by Dr. Chacon) unremarkable. Cardiac enzymes: negative x 1 CT of the head negative per radiology read. CBC: no concerning abnormalities. CMP: hypocalcemia of 8.3. Coags: INR 1.1 Valproic acid: 82 UA: no culture indicated. Patient was administered 1g calcium chew. Prescribed a few doses of meclizine 3 times a day, when necessary for dizziness. He is instructed to follow up with his PCP this week. He is stable and discharged to his SNF. Diagnosis Primary Impression: Dizziness Additional Impression: Hypocalcemia Referrals: Primary Care Physician Patient Instructions: Dizziness (ED), General Instructions, Hypocalcemia (ED) Additional Instruction: Rest, hydrate. Resume outpatient medications. Take meclizine as needed for continued dizziness. Follow up with the primary care provider this week. Return to the ED for any urgent or emergent medical condition. Scripts Meclizine 12.5 Mg Tab12.5 Mg PO TID PRN (VERTIGO) #10 TAB Ref 0 Prov:Yarelis Sousa DO 05/30/17 Disposition: 03 DISCHARGE TO SNF Condition: Stable Rosie Tovar May 30, 2017 07:15
[2017-05-30 07:37] LABS: APTT (PATIENT) 28.4 SEC (24.3-30.1); INTERNATIONAL NORMALIZED RATIO 1.1 RATIO; PROTHROMBIN TIME - PATIENT 11.7 SEC (9.8-11.6)
[2017-05-30 07:43] LABS: BLOOD, URINE NEG (NEG); GLUCOSE,URINE NEG (NEG); KETONE, URINE NEG (NEG); NITRITE,URINE NEG (NEG); PH, URINE 6.5 (5.0-8.5); URINE COLOR YELLOW (YELLW/STRAW)
[2017-05-30 07:48] LABS: ANION GAP 6 MEQ/L (5-15); BICARBONATE 30.5 MEQ/L (21.0-32.0); BLOOD UREA NITROGEN 19 MG/DL (7-18); CHLORIDE 103 MEQ/L (98-107); GLOMERULAR FILTRATION RATE 124 ML/MIN (>89); POTASSIUM 3.8 MEQ/L (3.5-5.1); SODIUM (NA) 139 MEQ/L (136-145)
[2017-05-30 07:53] LABS: COMMENT (UR) CULT NOT INDICATED; CULTURE IF INDICATED CULT NOT INDICATED
[2017-05-30] MEDS ORDERED: MECL12.574 PO (07:57)
[2017-05-30] MEDS ORDERED: CALCIUM CARBONATE 500 MG CHEWABLE TAB CHEW ONE (08:00)
[2017-05-30 08:12] LABS: CREATINE KINASE 82 U/L (39-308)
[2017-05-30 08:51] LABS: AUTOMATED NEUTROPHIL # 3.1 TH/MM3 (1.8-7.7); BASOPHIL % 0.4 % (0.0-2.0); EOSINOPHIL # 0.1 TH/MM3 (0-0.4); EOSINOPHIL % 2.4 % (0.0-4.0); HEMATOCRIT 40.5 % (39.0-51.0); HEMO FLAGS DIFF FINAL; LYMPH % 38.1 % (9.0-44.0); LYMPHOCYTE # 2.2 TH/MM3 (1.0-4.8); MEAN CELL VOLUME 90.8 FL (80.0-100.0); MEAN CORPUSCULAR HEMOGLOBIN 31.4 PG (27.0-34.0); MEAN CORPUSCULAR HGB CONC 34.6 % (32.0-36.0); NEUT % 52.1 % (16.0-70.0); PLATELET COUNT 168 TH/MM3 (150-450); RED BLOOD COUNT 4.47 MIL/MM3 (4.50-5.90); RED CELL DISTRIBUTION WIDTH 15.5 % (11.6-17.2); WHITE BLOOD COUNT 5.9 TH/MM3 (4.0-11.0)
--- NOTE | 2017-05-31 13:58 | EKG ---
Date Performed: 05/30/2017 Time Performed: 06:29:46 PTAGE: 61 years EKG: Sinus rhythm SEPTAL MYOCARDIAL INFARCTION ABNORMAL ECG PREVIOUS TRACING : 04/16/2015 15.16 Now consider anteroseptal myocardial infarction - age indet erminate DOCTOR: Tucker Leach Interpretating Date/Time 05/31/2017 13:56:55
== END 2017-05-30 08:55 ==
LOC: NEPD 06:16
DX: R42 Dizziness and giddiness (principal); E83.51 Hypocalcemia; R94.31 Abnormal electrocardiogram [ECG] [EKG]
CPT/HCPCS: 70450; 71010; 80048; 80164; 81001; 82550; 83735; 84484; 85025; 85610; 85730; 93005

== ENCOUNTER 2017-06-08 12:11 | Inpatient (IN) | payer MEDICAID, OTHER ==
[~2017-06-08] VITALS: Ht 172.7 cm; Wt 74.4 kg
[~2017-06-08 12:11] MED LIST changes: +MECL12.574 PO
[2017-06-08 12:14] VITALS: BP 138/87; PULSE 78; RESP 22; TEMP 98.7; O2SAT 99
[2017-06-08 12:56] LABS: AUTOMATED NEUTROPHIL # 2.7 TH/MM3 (1.8-7.7); BASOPHIL % 0.5 % (0.0-2.0); EOSINOPHIL # 0.2 TH/MM3 (0-0.4); EOSINOPHIL % 2.8 % (0.0-4.0); HEMATOCRIT 44.3 % (39.0-51.0); HEMO FLAGS DIFF FINAL; LYMPH % 40.1 % (9.0-44.0); LYMPHOCYTE # 2.2 TH/MM3 (1.0-4.8); MEAN CELL VOLUME 90.6 FL (80.0-100.0); MEAN CORPUSCULAR HEMOGLOBIN 30.5 PG (27.0-34.0); MEAN CORPUSCULAR HGB CONC 33.7 % (32.0-36.0); NEUT % 47.6 % (16.0-70.0); PLATELET COUNT 193 TH/MM3 (150-450); RED BLOOD COUNT 4.89 MIL/MM3 (4.50-5.90); RED CELL DISTRIBUTION WIDTH 15.2 % (11.6-17.2); WHITE BLOOD COUNT 5.6 TH/MM3 (4.0-11.0)
[2017-06-08 13:13] LABS: BLOOD, URINE NEG (NEG); GLUCOSE,URINE NEG (NEG); KETONE, URINE NEG (NEG); NITRITE,URINE NEG (NEG); PH, URINE 6.5 (5.0-8.5); SQUAMOUS EPITHELIAL CELL URINE <1 /hpf (0-5); URINE COLOR YELLOW (YELLW/STRAW)
[2017-06-08 13:15] LABS: COMMENT (UR) CULT NOT INDICATED; CULTURE IF INDICATED CULT NOT INDICATED
[2017-06-08 13:17] LABS: BICARBONATE 30.9 MEQ/L (21.0-32.0); POTASSIUM 3.9 MEQ/L (3.5-5.1)
[2017-06-08 13:21] LABS: AMPHETAMINE, URINE NEG (NEG); BARBITURATES, URINE NEG (NEG); COCAINE, URINE NEG (NEG)
[2017-06-08] MEDS ORDERED: TRIH2 PO (13:22)
[2017-06-08] MEDS ORDERED: ARIP10IN IM (13:23)
[2017-06-08 14:14] VITALS: BP 119/70; PULSE 60; RESP 18; O2SAT 97
--- NOTE | 2017-06-08 15:29 | PD ---
HPI Chief Complaint: Psychiatric Symptoms Time Seen by Provider: 15:25 Travel History International Travel<30 days: No Contact w/Intl Traveler<30days: No Traveled to known affect area: No History of Present Illness HPI 61-year-old male that presents to the ED for evaluation of psych. Patient has a chronic history of schizophrenia. Patient is paranoid. Patient apparently is hearing voices and his medications were recently changed and he believes that the need to be switched again as he is hearing a lot of voices and he feels not well. He denies any suicidal or homicidal ideation but apparently the voices are telling him to possibly hurt someone. She denies any pain. No chest pain or shortness of breath. No other medical issues. Symptoms have been ongoing for the past couple days. PFSH Past Medical History Arthritis: Yes (IN LEGS ) Autoimmune Disease: No Blood Disorders: No Anxiety: Yes Depression: Yes Cancer: No Chemotherapy: No Chest Pain: No Congestive Heart Failure: No COPD: Yes Cerebrovascular Accident: No Diminished Hearing: No Endocrine: No Gastrointestinal Disorders: No GERD: No Genitourinary: No Hiatal Hernia: No Immune Disorder: No Implanted Vascular Access Dvce: No Kidney Stones: No Musculoskeletal: Yes Neurologic: No Psychiatric: Yes Reproductive: No Respiratory: Yes (COPD) Immunizations Current: Yes Migraines: No Radiation Therapy: No Renal Failure: No Schizophrenia: Yes Seizures: No Sickle Cell Disease: No Thyroid Disease: No Ulcer: No Past Surgical History Abdominal Surgery: Yes (GALL BLADDER REMOVED) AICD: No Arteriovenous Shunt: No Cardiac Surgery: No Cholecystectomy: Yes Ear Surgery: No Endocrine Surgery: No Eye Surgery: No Genitourinary Surgery: No Gynecologic Surgery: No Insulin Pump: No Joint Replacement: No Oral Surgery: No Pacemaker: No Thoracic Surgery: No Other Surgery: Yes Social History Alcohol Use: Yes (occasionally) Tobacco Use: Yes Substance Use: No (Patient denies. ) Allergies-Medications (Allergen,Severity, Reaction): Coded Allergies: No Known Allergies (Verified , 04/30/17) Per MAR faxed by [employer] [phone]. Reported Meds & Prescriptions Reported Meds & Active Scripts Active Meclizine (Meclizine HCl) 12.5 Mg Tab 12.5 Mg PO TID PRN Trazodone (Trazodone HCl) 100 Mg Tablet 100 Mg PO HS 15 Days Mirtazapine 15 Mg Tab 15 Mg PO HS 15 Days Divalproex ER (Divalproex Sodium) 500 Mg Tab 1,000 Mg PO HS 15 Days Gabapentin 100 Mg Cap 100 Mg PO TID 15 Days Reported Elliott Garciaa Dual Chamber Inj (Aripiprazole) 400 Mg Inj 400 Mg IM Q28D Trihexyphenidyl (Trihexyphenidyl HCl) 2 Mg Tab 2 Mg PO BID Haloperidol 5 Mg Tab 5 Mg PO BID Meloxicam 7.5 Mg Tab 7.5 Mg PO DAILY Review of Systems Except as stated in HPI: all other systems reviewed are Neg Physical Exam Narrative GENERAL: SKIN: Warm and dry. HEAD: Atraumatic. Normocephalic. EYES: Pupils equal and round. No scleral icterus. No injection or drainage. ENT: No nasal bleeding or discharge. Mucous membranes pink and moist. Tongue is midline. No uvula deviation. NECK: Trachea midline. No JVD. CARDIOVASCULAR: Regular rate and rhythm. No murmurs, S3, S4. RESPIRATORY: No accessory muscle use. Clear to auscultation. Breath sounds equal bilaterally. GASTROINTESTINAL: Abdomen soft, non-tender, nondistended. Hepatic and splenic margins not palpable. MUSCULOSKELETAL: Extremities without clubbing, cyanosis, or edema. No obvious deformities. Full range of motion of the upper and lower extremities bilaterally. 2+ pulses bilaterally. NEUROLOGICAL: Awake and alert. No obvious cranial nerve deficits. Motor grossly within normal limits. Five out of 5 muscle strength in the arms and legs. Normal speech. PSYCHIATRIC: Somewhat psychotic mood and affect; insight and judgment normal. Data Data Last Documented VS Vital Signs Date Time Temp Pulse Resp B/P Pulse Ox O2 Delivery O2 Flow Rate FiO2 06/08/17 14:14 60 18 119/70 97 Room Air 06/08/17 12:14 98.7 Orders Complete Blood Count With Diff (06/08/17 12:20) Basic Metabolic Panel (Bmp) (06/08/17 12:20) Urinalysis - C+S If Indicated (06/08/17 12:20) Drug Screen, Random Urine (06/08/17 12:20) Labs Laboratory Tests Test 06/08/17 06/08/17 12:27 12:45 White Blood Count 5.6 TH/MM3 Red Blood Count 4.89 MIL/MM3 Hemoglobin 14.9 GM/DL Hematocrit 44.3 % Mean Corpuscular Volume 90.6 FL Mean Corpuscular Hemoglobin 30.5 PG Mean Corpuscular Hemoglobin 33.7 % Concent Red Cell Distribution Width 15.2 % Platelet Count 193 TH/MM3 Mean Platelet Volume 7.7 FL Neutrophils (%) (Auto) 47.6 % Lymphocytes (%) (Auto) 40.1 % Monocytes (%) (Auto) 9.0 % Eosinophils (%) (Auto) 2.8 % Basophils (%) (Auto) 0.5 % Neutrophils # (Auto) 2.7 TH/MM3 Lymphocytes # (Auto) 2.2 TH/MM3 Monocytes # (Auto) 0.5 TH/MM3 Eosinophils # (Auto) 0.2 TH/MM3 Basophils # (Auto) 0.0 TH/MM3 CBC Comment DIFF FINAL Differential Comment Sodium Level 139 MEQ/L Potassium Level 3.9 MEQ/L Chloride Level 103 MEQ/L Carbon Dioxide Level 30.9 MEQ/L Anion Gap 5 MEQ/L Blood Urea Nitrogen 17 MG/DL Creatinine 0.79 MG/DL Estimat Glomerular Filtration 99 ML/MIN Rate Random Glucose 81 MG/DL Calcium Level 8.8 MG/DL Urine Color YELLOW Urine Turbidity CLEAR Urine pH 6.5 Urine Specific [place] 1.014 Urine Protein NEG mg/dL Urine Glucose (UA) NEG mg/dL Urine Ketones NEG mg/dL Urine Occult Blood NEG Urine Nitrite NEG Urine Bilirubin NEG Urine Urobilinogen 4.0 MG/DL Urine Leukocyte Esterase NEG Urine RBC 1 /hpf Urine WBC LESS THAN 1 /hpf Urine Squamous Epithelial <1 /hpf Cells Microscopic Urinalysis Comment CULT NOT INDICATED Urine Opiates Screen NEG Urine Barbiturates Screen NEG Urine Amphetamines Screen NEG Urine Benzodiazepines Screen NEG Urine Cocaine Screen NEG Urine Cannabinoids Screen POS [facility] Medical Decision Making Medical Screen Exam Complete: Yes Emergency Medical Condition: Yes Medical Record Reviewed: Yes Interpretation(s) CBC & BMP Diagram 06/08/17 12:27 tox possitive for cannabinoids Differential Diagnosis Depression versus suicidal ideation versus anxiety versus adjustment disorder versus mood disorder versus bipolar disorder versus schizophrenia versus paranoid disorder versus psychosis versus substance abuse versus alcohol abuse versus alcohol induced psychosis versus homicidality addition versus cutting versus personality disorder Narrative Course 61-year-old male that presents to the ED for evaluation of schizophrenia. Patient was properly examined and was found to have signs and symptoms consistent with schizophrenia. No sign of acute medical distress. Labs were done. Patient was medically clear. Okay to be seen by psych. Mental health screening was discussed with the patient. Diagnosis Primary Impression: Schizophrenia Qualified Code: F20.9 - Schizophrenia, unspecified type Raheem Santizo Jun 08, 2017 15:29
--- NOTE | 2017-06-08 16:32 | PD ---
History of Present Illness Chief Complaint: Psychiatric Symptoms Time Seen by Provider: 16:00 Travel History International Travel<30 Days: No Contact w/Intl Traveler<30days: No Known affected area: No Legal Status Legal Status: Voluntary History of Present Illness: History of Present Illness HPI 61-year-old male with history of schizophrenia, known to [facility], with at least 6 psychiatric hospitalizations since 2009 who presents to the ED for psychiatric evaluation with complaints of increase in auditory hallucinations, increase in delusions secondary to recent change in medications. He denies any suicidal or homicidal ideation but apparently the voices are telling him to possibly hurt someone. He reports increase in symptoms for the past couple days. Reports medication compliance. EMR is reviewed. Last psychiatric hospitalization was in April 2017 under the care of Dr. Turner. He presented to ED on May 18, 2017 on a voluntary status reporting increase in symptoms and was referred to [facility] outpatient clinic for medication evaluation. Patient is seen in [facility] pod. asleep but arouses easily. His speech is low tone and difficult at times to understand. He reports increase in auditory hallucinations as well as increase in paranoid thoughts. He does nto disclose the content of his hallucinations. He again states that he feels his medications are not working and that he needs to have ' a medication change". Patient denies any suicidal or homicidal ideation. PFSH Past Medical History Arthritis: Yes (IN LEGS ) Autoimmune Disease: No Blood Disorders: No Anxiety: Yes Depression: Yes Cancer: No Chemotherapy: No Chest Pain: No Congestive Heart Failure: No COPD: Yes Cerebrovascular Accident: No Diminished Hearing: No Endocrine: No Gastrointestinal Disorders: No GERD: No Genitourinary: No Hiatal Hernia: No Immune Disorder: No Implanted Vascular Access Dvce: No Kidney Stones: No Musculoskeletal: Yes Neurologic: No Psychiatric: Yes Reproductive: No Respiratory: Yes (COPD) Immunizations Current: Yes Migraines: No Radiation Therapy: No Renal Failure: No Schizophrenia: Yes Seizures: No Sickle Cell Disease: No Thyroid Disease: No Ulcer: No Past Surgical History Abdominal Surgery: Yes (GALL BLADDER REMOVED) AICD: No Arteriovenous Shunt: No Cardiac Surgery: No Cholecystectomy: Yes Ear Surgery: No Endocrine Surgery: No Eye Surgery: No Genitourinary Surgery: No Gynecologic Surgery: No Insulin Pump: No Joint Replacement: No Oral Surgery: No Pacemaker: No Thoracic Surgery: No Other Surgery: Yes Psychiatric History Psychiatric History Hx Psychiatric Treatment: Pt. has had prior admissions to [facility] and also notes that he has been to a rehab center in [facility] years ago. Last psych admission to [facility] [place] April 2017. History of Inpatient Treatment: Yes Guns or firearms in home: No Social History Single male. Lives at [facility] Hx Alcohol Use: Yes (occasionally) Hx Tobacco Use: Yes Hx Substance Use: No (Patient denies. ) Substance Use Type: Marijuana, Nicotine/Cigarettes Other Substances Used: in the past-denies now Hx of Substance Use Treatment: Yes Family Psychiatric History None reported Allergies-Medications (Allergen,Severity, Reaction): Coded Allergies: No Known Allergies (Verified , 04/30/17) Per MAR faxed by [employer] [phone]. Reported Meds & Prescriptions Reported Meds & Active Scripts Active Meclizine (Meclizine HCl) 12.5 Mg Tab 12.5 Mg PO TID PRN Trazodone (Trazodone HCl) 100 Mg Tablet 100 Mg PO HS 15 Days Mirtazapine 15 Mg Tab 15 Mg PO HS 15 Days Divalproex ER (Divalproex Sodium) 500 Mg Tab 1,000 Mg PO HS 15 Days Gabapentin 100 Mg Cap 100 Mg PO TID 15 Days Reported Abilify Maintena Dual Chamber Inj (Aripiprazole) 400 Mg Inj 400 Mg IM Q28D Trihexyphenidyl (Trihexyphenidyl HCl) 2 Mg Tab 2 Mg PO BID Haloperidol 5 Mg Tab 5 Mg PO BID Meloxicam 7.5 Mg Tab 7.5 Mg PO DAILY Review of Systems Except as stated in HPI: all other systems reviewed are Neg Exam Alert: Yes [place]: Person (ox4) Mood: Calm Affect: Restricted Speech: Clear (diminished. ) Eye Contact: Other (decreased) Memory Intact: Comment (Not formally tested) Hallucinations: Auditory Delusions: Yes (Does not disclose) Delusion Type: Paranoid (Has reported feeling paranoid) Suicidal: Ideation (Denies any) Homicidal: Ideation (Denies ) Insight/Judgement Fair. Not impaired [facility] Medical Decision Making Medical Record Reviewed: Yes Assessment/Plan 61-year-old male with history of schizophrenia, known [place] [facility], with at least 6 psychiatric hospitalizations since 2009 who presents to the ED for the second time in 2 weeks with complaints of increase in auditory hallucinations, increase in delusions secondary to recent change in medications. He denies any suicidal or homicidal ideation but apparently the voices are telling him to possibly hurt someone. He reports increase in symptoms for the past couple days. At this time he will be admitted for further evaluation as well as medication adjustment. Orders Complete Blood Count With Diff (06/08/17 12:20) Basic Metabolic Panel (Bmp) (06/08/17 12:20) Urinalysis - C+S If Indicated (06/08/17 12:20) Drug Screen, Random Urine (06/08/17 12:20) Psych Screen (06/08/17 15:35) Results Vital Signs Date Time Temp Pulse Resp B/P Pulse Ox O2 Delivery O2 Flow Rate FiO2 06/08/17 14:14 60 18 119/70 97 Room Air 06/08/17 12:14 98.7 78 22 138/87 99 Laboratory Tests Test 06/08/17 06/08/17 12:27 12:45 White Blood Count 5.6 Red Blood Count 4.89 Hemoglobin 14.9 Hematocrit 44.3 Mean Corpuscular Volume 90.6 Mean Corpuscular Hemoglobin 30.5 Mean Corpuscular Hemoglobin 33.7 Concent Red Cell Distribution Width 15.2 Platelet Count 193 Mean Platelet Volume 7.7 Neutrophils (%) (Auto) 47.6 Lymphocytes (%) (Auto) 40.1 Monocytes (%) (Auto) 9.0 Eosinophils (%) (Auto) 2.8 Basophils (%) (Auto) 0.5 Neutrophils # (Auto) 2.7 Lymphocytes # (Auto) 2.2 Monocytes # (Auto) 0.5 Eosinophils # (Auto) 0.2 Basophils # (Auto) 0.0 CBC Comment DIFF FINAL Differential Comment Sodium Level 139 Potassium Level 3.9 Chloride Level 103 Carbon Dioxide Level 30.9 Anion Gap 5 Blood Urea Nitrogen 17 Creatinine 0.79 Estimat Glomerular Filtration 99 Rate Random Glucose 81 Calcium Level 8.8 Urine Color YELLOW Urine Turbidity CLEAR Urine pH 6.5 Urine Specific [place] 1.014 Urine Protein NEG Urine Glucose (UA) NEG Urine Ketones NEG Urine Occult Blood NEG Urine Nitrite NEG Urine Bilirubin NEG Urine Urobilinogen 4.0 Urine Leukocyte Esterase NEG Urine RBC 1 Urine WBC LESS THAN 1 Urine Squamous Epithelial <1 Cells Microscopic Urinalysis Comment CULT NOT INDICATED Urine Opiates Screen NEG Urine Barbiturates Screen NEG Urine Amphetamines Screen NEG Urine Benzodiazepines Screen NEG Urine Cocaine Screen NEG Urine Cannabinoids Screen POS Diagnosis Primary Impression: Schizophrenia Admitting Information Admitting Physician Requests: Admit Problem Qualifiers Primary Impression: Schizophrenia Qualified Code: F20.0 - Paranoid schizophrenia Meak Hoang [facility] Jun 08, 2017 16:32
[2017-06-08] MEDS ORDERED: MAGNESIUM HYDROXIDE SUSP 30 ML CUP PO PRN (17:00)
[2017-06-08] MEDS ORDERED: ACETAMINOPHEN 325 MG TAB PO PRN (17:00)
[2017-06-08] MEDS ORDERED: ALUMINUM/MAGNESIUM/SIMETH 30 ML CUP PO PRN (17:00)
[2017-06-08 17:15] VITALS: BP 176/95; PULSE 61; RESP 18; TEMP 97.5
[2017-06-08] MEDS: GABAPENTIN 100 MG CAP PO SCH (18:00)
[2017-06-08] MEDS ORDERED: PILL SPLITTER OTHER PRN (18:15)
[2017-06-08] MEDS ORDERED: PNEUMOCOCCAL POLYVALENT INJ 25 MCG/0.5 ML SYR IM ONE (19:00)
[2017-06-08] MEDS: TRIHEXYPHENIDYL HCL 2 MG TAB PO SCH (20:31)
[2017-06-08] MEDS: DIVALPROEX SODIUM E.R. 500 MG TAB PO SCH (20:32)
[2017-06-08] MEDS: traZODone HCL 100 MG TAB PO SCH (20:32)
[2017-06-08] MEDS: HALOPERIDOL 5 MG TAB PO SCH (20:32)
[2017-06-08] MEDS: MIRTAZAPINE 15 MG TAB PO SCH (20:32)
[2017-06-09 05:42] VITALS: BP 101/59; PULSE 60; RESP 18; TEMP 99.3
[2017-06-09] MEDS: HALOPERIDOL 5 MG TAB PO SCH ×2 (09:21→21:29)
[2017-06-09] MEDS: TRIHEXYPHENIDYL HCL 2 MG TAB PO SCH ×2 (09:21→21:29)
[2017-06-09] MEDS: MELOXICAM 7.5 MG TAB PO SCH (09:21)
[2017-06-09] MEDS: GABAPENTIN 100 MG CAP PO SCH ×3 (09:21→19:09)
[2017-06-09] MEDS ORDERED: PNEUMOCOCCAL POLYVALENT INJ 25 MCG/0.5 ML SYR IM ONE (10:00)
[2017-06-09 11:14] LABS: ANION GAP 6 MEQ/L (5-15); BLOOD UREA NITROGEN 23 MG/DL (7-18); CHLORIDE 108 MEQ/L (98-107); GLOMERULAR FILTRATION RATE 98 ML/MIN (>89); POTASSIUM 3.9 MEQ/L (3.5-5.1); SODIUM (NA) 145 MEQ/L (136-145)
[2017-06-09 11:17] LABS: HDL CHOLESTEROL 39.8 MG/DL (40.0-60.0); LDL CHOLESTEROL 72 MG/DL (0-99)
[2017-06-09 11:41] LABS: HEMOGLOBIN A1a 0.9 %; HEMOGLOBIN A1b 0.7 %; HEMOGLOBIN Ao 86.3 %; HEMOGLOBIN LA1C 1.9 %; HEMOGLOBIN P3 3.6 %
[2017-06-09 18:06] VITALS: BP 132/73; PULSE 58; RESP 18; TEMP 97.9; O2SAT 98
--- NOTE | 2017-06-09 19:57 | HHI.HP ---
Provisional Diagnosis Admission Date Jun 08, 2017 at 17:06 [place] I. Schizophrenia; rule out Substance induced psychotic disorder secondary to THC use. [place] II. deferred [place] III. HTN [place] IV. chronic mental illness, poor social support, chemical dependence [place] V. 35 Certification of Person's Competence To Provide Express and Informed Consent I have personally examined Evert Flowers , a person being served at [facility] on, Jun 09, 2017 19:50. Express and informed consent means consent voluntarily given in writing, by a competent person, after sufficient explanation and disclosure of the subject matter involved to enable the person to make a knowing and willful decision without any element of force, fraud, deceit, duress, or other form of constraint or coercion. This person is 18 years of age or older, is not now known to be incompetent to consent to treatment with a guardian advocate, and does not have a health care surrogate or proxy currently making medical treatment decisions. I have found this person to be one of the following: [x] Competent to provide express and informed consent, as defined above, for voluntary admission to this facility and is competent to provide express and informed consent for treatment. He/she has the consistent capacity to make well reasoned, willful, and knowing decisions concerning his or her medical or mental health treatment. The person fully and consistently understands the purpose of the admission for examination/placement and is fully capable of personally exercising all rights assured under [place] Incompetent to provide express and informed consent to voluntary admission, and this is incompetent to provide express and informed consent to treatment. The person must be transferred to involuntary status and a petition for a guardian advocate filed with the Circuit Court. [] Refusing to provide express and informed consent to voluntary admission but is competent to provide express and informed consent for treatment. The person must be discharged or transferred to involuntary status. Form shall be completed within 24 hours of a person's arrival at the receiving facility and filed in the clinical record of each person: 1. Admitted on a voluntary basis 2. Permitted to provide express and informed consent to his/her own treatment 3. Allowed to transfer from involuntary to voluntary status 4. Prior to permitting a person to consent to his or her own treatment after having been previously found incompetent to consent to treatment. History of Present Illness Capacity: Has Capacity HPI Patient is a 61-year-old man, single, living in assisted living facility, unemployed on SSI, past psychiatric history psychiatric history of schizophrenia, multiple psychiatric hospitalizations, no prior suicide attempts , no self-interest behavior, currently followed with outpatient treatment at [facility] , was brought to the ED due to increase in auditory hallucinations for the past several days along with paranoid delusions and requesting change in medications. Patient also reports that the out of those auditory hallucinations are command nature telling him to hurt others denying suicidal ideations in the context of marijuana use. Patient found lying on hospital bed, superficially cooperative. Patient states that he had come to the emergency room because of visual and auditory hallucinations but more visual hallucinations which started 5 days ago. He states that at that time he had smoked marijuana with his friend about 3-4 hits . He states that the hallucinations began at that time which she had heard rap music. He states that he has been having a lot of elusive for about a week which mostly sounds but denies any voices and denies command auditory hallucinations despite had reported this in the ER. He also mentions prior to coming to the emergency room he had a fight with another person which she feels may be related in someway for his reason to come to the emergency room. Currently he reports feeling so-so reports decreased sleep no change in appetite and energy or concentration mood lately being regular denies feeling depressed denies any manic or other psychotic symptoms. Patient at this time denies any SI or HI, perceptual disturbances. Patient states that he wants to move out of his assisted living facility to another one as he states he is tired of routine meals. Past psychiatric history: Previous psychiatric diagnoses of schizophrenia, 6 prior psychiatric hospitalizations (first being at the age of 28, last at [facility] in April 2017), denies any previous suicide attempts or self- injurious behavior, denies any sexual or physical abuse, reports outpatient medical provider at [facility] (last seen 2 weeks ago) . Medication trials include Haldol, aripiprazole, alprazolam Maintenna,, Depakote, mirtazapine, trazodone,. Current medications include Haldol 5 mg by mouth twice a day Depakote 1000 mg at bedtime, trihexyphenidyl 2 mg by mouth twice a day, meloxicam 7.5 mg daily. Family psychiatric history: Reports uncle diagnosed with schizophrenia, denies any suicides in the family. Substance use history: Tobacco use about 5-7 cigarettes per day, marijuana use 5 days ago per reports occasional use. Patient has remote history of heroin cocaine methamphetamine use, denies any previous detox, reports previous rehabilitation program 20 years ago. Past medical history: Hypertension Allergies: No known drug allergies Social history: Patient is single, has one child (4 years old), living alone in an assisted living facility for the past 5 years, eyes education is an associate s degree in college, unemployed supported on [employer]. Review of Systems ROS Limitations: Poor Historian Except as stated in HPI: all other systems reviewed are Neg Past Psych History Psychological trauma history denies Violence risk - others (6 mos) low Violence risk - self (6 mos) low Substance Abuse History Drugs/Alcohol past 12 months THC use, remote history of heroin, cocaine, methamphetamine. No prior detox, prior rehabilitation for substance use 20 years ago. Past Family Social History Coded Allergies: No Known Allergies (Verified , 04/30/17) Per MAR faxed by [employer] [phone]. Active Scripts Meclizine 12.5 Mg Tab12.5 Mg PO TID PRN (VERTIGO) #10 TAB Ref 0 Prov:Yarelis Sousa DO 05/30/17 Trazodone 100 Mg [id number] Mg PO HS 15 Days Ref 1 Prov:Jose Luis Turner MD 05/03/17 Mirtazapine 15 Mg Tab15 Mg PO HS 15 Days Ref 1 Prov:Jose Luis Turner MD 05/03/17 Divalproex ER 500 Mg Tab1,000 Mg PO HS 15 Days Ref 1 Prov:Jose Luis Turner MD 05/03/17 Gabapentin 100 Mg [id number] Mg PO TID 15 Days Ref 1 Prov:Jose Luis Turner MD 05/03/17 Reported Medications Aripiprazole Maintena Dual Chamber Inj (Abilify Maintena Dual Chamber Inj)400 Mg [id number] Mg IM Q28D #1 SYRINGE Ref 0 06/08/17 Trihexyphenidyl 2 Mg Tab2 Mg PO BID #60 TAB Ref 0 06/08/17 Haloperidol 5 Mg Tab5 Mg PO BID Ref 0 05/18/17 Meloxicam 7.5 Mg Tab7.5 Mg PO DAILY Ref 0 10/17/16 Current Medications Medications (Trade) Dose Ordered Sig/Feroz Route Start Time Stop Time Status Last Admin (Tylenol) 650 mg Q4H PRN PO 06/08/17 17:00 (Milk Of Magnesia Liq) 30 ml DAILY PRN PO 06/08/17 17:00 (Mag-Al Plus Susp Liq) 30 ml Q6H PRN PO 06/08/17 17:00 (Depakote Er) 1,000 mg HS PO 06/08/17 21:00 06/08/17 20:32 (Neurontin) 100 mg TID PO 06/08/17 18:00 06/09/17 19:09 (Haldol) 5 mg BID PO 06/08/17 21:00 06/09/17 09:21 (Antivert) 12.5 mg TID PRN PO 06/08/17 17:15 (Mobic) 7.5 mg DAILY PO 06/09/17 09:00 06/09/17 09:21 (Remeron) 15 mg HS PO 06/08/17 21:00 06/08/17 20:32 (Artane) 2 mg BID PO 06/08/17 21:00 06/09/17 09:21 (Desyrel) 100 mg HS PO 06/08/17 21:00 06/08/17 20:32 (Pill Splitter) 1 ea UNSCH PRN OTHER 06/08/17 18:15 Family History Uncle diagnosed with schizophrenia, no suicides in the family. Social History Single, has 1 adult child, living alone in assisted living facility for more than 5 years, unemployed on SSI. Highest education associates degree Patient's Strengths (min. 2) Verbal, communicative Physical Exam On my examination today, the patient appears to be in no acute physical distress. No abnormal motor movements noted. Vital Signs Vital Signs Date Time Temp Pulse Resp B/P Pulse Ox O2 Delivery O2 Flow Rate FiO2 06/09/17 18:06 97.9 58 18 132/73 98 06/08/17 14:14 Room Air Mental Status Examination Appearance Patient appears stated age, in hospital [facility], lying in hospital bed, fair hygiene, mildly disheveled, superficially cooperative in interview, poor eye contact. Orientation: x3 Memory: Unremarkable Thought Process: Other (concrete) Language Fluent and spontaneous Fund of Knowledge Fair Hallucination Type: Auditory (of rap music and sounds), Visual (did not elaborate) Attention and Concentration: Other (fair) Suicidal Ideation: Yes (reported suicide ideations in the ER but denies at this time) Previous Suicide Attempts: No Homicidal Ideation: No Previous Homicide Attempts: No Insight: Poor Judgment: Poor Affect: Other (constricted) Mood: Other ("so-so") Assessment & Plan Problem List: (1) Schizophrenia ICD Code: F20.9 Assessment & Plan Estimated LOS: 5-7 days. Patient is a 61-year-old man who carries a diagnosis of schizophrenia with multiple hospitalizations was receiving brought into the emergency room for increasing psychotic symptoms including auditory hallucinations visual hallucinations and delusions in the context of recent marijuana use. Patient will be restarted on his treatment regimen and monitor for response and possible adverse drug reactions. Brief supportive psychotherapy provided. Collateral pending. EKG ordered. Discharge planning and process. Plan: Continue haloperidol 5 mg by mouth twice a day for psychosis Continue Depakote 1000 mg at bedtime for mood stabilization Continue mirtazapine 50 mg at bedtime for depression Continue gabapentin 100 g by mouth 3 times a day Continue meloxicam 7.5 by mouth daily Continue trihexyphenidyl 2 mg by mouth twice a day for EPS Continue trazodone 100 mg by mouth at bedtime for sleep disturbance EKG ordered. Monitor for medication response and possible adverse drug reactions. Supportive psychotherapy provided. Collateral pending. Discharge planning and process Discharge Planning In process Problem Qualifiers (1) Schizophrenia: Qualified Code: F20.0 - Paranoid schizophrenia Westley Cavazos MD Jun 09, 2017 19:57
[2017-06-09] MEDS: DIVALPROEX SODIUM E.R. 500 MG TAB PO SCH (21:29)
[2017-06-09] MEDS: traZODone HCL 100 MG TAB PO SCH (21:29)
[2017-06-09] MEDS: MIRTAZAPINE 15 MG TAB PO SCH (21:30)
[2017-06-10 06:08] VITALS: BP 115/64; PULSE 51; RESP 16; TEMP 97.2; O2SAT 97
[2017-06-10] MEDS: GABAPENTIN 100 MG CAP PO SCH ×3 (08:52→17:09)
[2017-06-10] MEDS: MELOXICAM 7.5 MG TAB PO SCH (08:52)
[2017-06-10] MEDS: HALOPERIDOL 5 MG TAB PO SCH ×2 (08:52→21:24)
[2017-06-10] MEDS: TRIHEXYPHENIDYL HCL 2 MG TAB PO SCH ×2 (08:52→21:23)
--- NOTE | 2017-06-10 14:49 | EKG ---
Date Performed: 06/09/2017 Time Performed: 20:26:17 PTAGE: 61 years EKG: SINUS BRADYCARDIA NONSPECIFIC T-WAVE ABNORMALITY BORDERLINE ECG PREVIOUS TRACING : 05/30/2017 06.29 Since previous tracing, no significant change noted DOCTOR: Elisabeth Velez Interpretating Date/Time 06/10/2017 14:47:34
[2017-06-10 16:54] VITALS: BP 146/65; PULSE 62; RESP 17; TEMP 97; O2SAT 96
--- NOTE | 2017-06-10 19:44 | HHI.PYPN ---
Subjective Remarks Patient is a 61-year-old man, single, living in assisted living facility, unemployed on SSI, past psychiatric history psychiatric history of schizophrenia, multiple psychiatric hospitalizations, no prior suicide attempts , no self-interest behavior, currently followed with outpatient treatment at [facility] , was brought to the ED due to increase in auditory hallucinations for the past several days along with paranoid delusions and requesting change in medications. Patient also reports that the out of those auditory hallucinations are command nature telling him to hurt others denying suicidal ideations in the context of marijuana use. Patient seen for follow-up, chart reviewed. Patient found walking in the halls but was able to engage in interview. Patient states that he has been feeling 50% better. Patient states that he feels that his medication except been helpful yet denies any perceptual disturbances and reports his mood to have been improving. The possibility of having she psychotic symptoms in the context of substance use was explored with patient. Patient states that he has been worried about where he would stay after discharge as he does not want to continue living in his current assisted living facility but he states that it is filled with people abusing drugs there.. Patient states that he plans on participating in groups and activities and going outside today. Patient is time reports to feeling pretty good denies any SI, HI, AVH or delusions. Patient states that his respiratory therapist at [facility] is person named Pedro. Review of Systems Except as stated in HPI: all other systems reviewed are Neg Objective Alert: Yes [place]: Person (ox4), Place Mood: Calm, Other ("50% better") Affect: Restricted Memory Intact: Comment (Not formally tested) Hallucinations: Other (denies at this time) Delusions: No (Does not disclose) Delusion Type: Other (denies at this time) Suicidal: Ideation (denies at this time) Homicidal: Ideation (Denies ) Insight/Judgment Limited insight, fair impulse control, limited judgment Vitals/IOs Vital Signs Date Time Temp Pulse Resp B/P Pulse Ox O2 Delivery O2 Flow Rate FiO2 06/10/17 16:54 97.0 62 17 146/65 96 06/08/17 14:14 Room Air Intake and Output 06/09/17 06/09/17 06/10/17 08:00 16:00 00:00 Intake Total 360 ml Balance 360 ml Assessment & Plan Problem List: (1) Schizophrenia ICD Code: F20.9 Assessment & Plan Estimated LOS: 5-7 days. Patient at this time continues to report improved mood and does not endorse any acute psychotic symptoms at this time. Patient continues to be worried about his current assisted living facility and he does not to return there upon discharge. Patient encouraged to continue current treatment. Patient encouraged to participate in activities. Discharge planning and process Justification for Cont. Inpt. Patient at risk for decompensation if it lower level of care Discharge Planning In progress Problem Qualifiers (1) Schizophrenia: Qualified Code: F20.0 - Paranoid schizophrenia Westley Cavazos MD Jun 10, 2017 19:44
[2017-06-10] MEDS: traZODone HCL 100 MG TAB PO SCH (21:24)
[2017-06-10] MEDS: DIVALPROEX SODIUM E.R. 500 MG TAB PO SCH (21:24)
[2017-06-10] MEDS: MIRTAZAPINE 15 MG TAB PO SCH (21:24)
[2017-06-11 05:37] VITALS: BP 108/74; PULSE 58; RESP 16; TEMP 98; O2SAT 92
[2017-06-11] MEDS: HALOPERIDOL 5 MG TAB PO SCH ×2 (08:22→20:35)
[2017-06-11] MEDS: GABAPENTIN 100 MG CAP PO SCH ×3 (08:22→17:00)
[2017-06-11] MEDS: TRIHEXYPHENIDYL HCL 2 MG TAB PO SCH ×2 (08:22→20:35)
[2017-06-11] MEDS: MELOXICAM 7.5 MG TAB PO SCH (08:22)
--- NOTE | 2017-06-11 18:08 | HHI.PYPN ---
Subjective Remarks Patient is a 61-year-old man, single, living in assisted living facility, unemployed on SSI, past psychiatric history psychiatric history of schizophrenia, multiple psychiatric hospitalizations, no prior suicide attempts , no self-interest behavior, currently followed with outpatient treatment at [facility] , was brought to the ED due to increase in auditory hallucinations for the past several days along with paranoid delusions and requesting change in medications. Patient also reports that the out of those auditory hallucinations are command nature telling him to hurt others denying suicidal ideations in the context of marijuana use. Patient seen for follow-up, chart reviewed. As per nursing report patient is oddly related, reported sleeping well, taking medications with no behavioral issues. Patient was found walking around the unit and was able to engage in interview. Patient states that he has been feeling good, reports having auditory hallucinations off-and-on, last time being 1 minute ago during interview. Patient does not seem to internally preoccupied but has been noted to be at times by nursing staff. Patient continues to be worried about being discharged to his current assisted living facility and wonders whether there will be possibility of changing to a different one. As time reports feeling okay denies SI, HI, VH or delusions. But continues to endorse auditory hallucinations off and on. Review of Systems Except as stated in HPI: all other systems reviewed are Neg Objective Alert: Yes [place]: Person (ox4), Place Mood: Calm, Other (okay") Affect: Restricted (but was able to smile once or twice during interview) Memory Intact: Comment (Not formally tested) Hallucinations: Auditory (noncommand) Delusions: No (Does not disclose) Delusion Type: Other (denies at this time) Suicidal: Ideation (denies at this time) Homicidal: Ideation (Denies ) Insight/Judgment Limited insight, fair impulse control and judgment Vitals/IOs Vital Signs Date Time Temp Pulse Resp B/P Pulse Ox O2 Delivery O2 Flow Rate FiO2 06/11/17 05:37 98.0 58 16 108/74 92 06/08/17 14:14 Room Air Assessment & Plan Problem List: (1) Schizophrenia ICD Code: F20.9 Assessment & Plan Estimated LOS: 5-7 days. Patient this time continues to deny any depressive symptoms but continues to have occasional auditory hallucinations which are not command in nature. Patient continues to worry about his current living facility and is looking for other options prior to discharge. Patient encouraged to continue current treatment and participation in groups and activities. Discharge planning in progress Justification for Cont. Inpt. Patient at risk for decompensation a lower level of care Discharge Planning In progress Problem Qualifiers (1) Schizophrenia: Qualified Code: F20.0 - Paranoid schizophrenia Westley Cavazos MD Jun 11, 2017 18:08
[2017-06-11] MEDS: traZODone HCL 100 MG TAB PO SCH (20:35)
[2017-06-11] MEDS: MIRTAZAPINE 15 MG TAB PO SCH (20:35)
[2017-06-11] MEDS: DIVALPROEX SODIUM E.R. 500 MG TAB PO SCH (20:35)
[2017-06-12 06:22] VITALS: BP 113/67; PULSE 47; RESP 16; TEMP 98; O2SAT 97
[2017-06-12] MEDS: HALOPERIDOL 5 MG TAB PO SCH ×2 (08:38→21:34)
[2017-06-12] MEDS: GABAPENTIN 100 MG CAP PO SCH ×3 (08:38→17:13)
[2017-06-12] MEDS: TRIHEXYPHENIDYL HCL 2 MG TAB PO SCH ×2 (08:38→21:34)
[2017-06-12] MEDS: MELOXICAM 7.5 MG TAB PO SCH (08:38)
[2017-06-12 12:40] LABS: ALT (GPT) 32 U/L (12-78); ANION GAP 5 MEQ/L (5-15); AST (GOT) 20 U/L (15-37); BICARBONATE 32.1 MEQ/L (21.0-32.0); BLOOD UREA NITROGEN 18 MG/DL (7-18); CHLORIDE 104 MEQ/L (98-107); GLOMERULAR FILTRATION RATE 98 ML/MIN (>89); POTASSIUM 4.3 MEQ/L (3.5-5.1); SODIUM (NA) 141 MEQ/L (136-145)
[2017-06-12 12:43] LABS: ALKALINE PHOSPHATASE 44 U/L (45-117); TOTAL BILIRUBIN ADULT 0.3 MG/DL (0.2-1.0)
--- NOTE | 2017-06-12 16:12 | HHI.PYPN ---
Subjective Remarks Patient was seen and case discussed with nursing. Patient says his hallucinations are resolved however he was observed talking to himself responding to internal stimuli per nursing. Minimizes reasons for admission. Remains blunted and disheveled. Denies suicidal ideation intent or plan. Depakote level is 73 Objective Alert: Yes [place]: Person (ox4), Place Mood: Calm, Other (okay") Affect: Restricted (but was able to smile once or twice during interview) Memory Intact: Comment (Not formally tested) Hallucinations: Auditory (denies) Delusions: No (Does not disclose) Delusion Type: Other (internally stimulated) Suicidal: Ideation (denies at this time) Homicidal: Ideation (Denies ) Insight/Judgment Poor Labs Test 06/12/17 12:00 Sodium Level 141 MEQ/L Potassium Level 4.3 MEQ/L Chloride Level 104 MEQ/L Carbon Dioxide Level 32.1 MEQ/L Anion Gap 5 MEQ/L Blood Urea Nitrogen 18 MG/DL Creatinine 0.80 MG/DL Estimat Glomerular Filtration 98 ML/MIN Rate Random Glucose 88 MG/DL Calcium Level 8.7 MG/DL Total Bilirubin 0.3 MG/DL Aspartate Amino Transf 20 U/L (AST/SGOT) Alanine Aminotransferase 32 U/L (ALT/SGPT) Alkaline Phosphatase 44 U/L Total Protein 7.2 GM/DL Albumin 3.4 GM/DL Valproic Acid (Depakene) Level 73 MCG/ML Vitals/IOs Vital Signs Date Time Temp Pulse Resp B/P Pulse Ox O2 Delivery O2 Flow Rate FiO2 06/12/17 06:22 98.0 47 16 113/67 97 06/08/17 14:14 Room Air Assessment & Plan Problem List: (1) Schizophrenia ICD Code: F20.9 Assessment & Plan Continue current treatment plan Justification for Cont. Inpt. Patient would decompensate in a less restrictive setting Problem Qualifiers (1) Schizophrenia: Qualified Code: F20.0 - Paranoid schizophrenia Prashant Shah DO Jun 12, 2017 16:12
[2017-06-12 17:00] VITALS: BP 102/60; PULSE 60; RESP 16; TEMP 98.8; O2SAT 97
[2017-06-12] MEDS: traZODone HCL 100 MG TAB PO SCH (21:34)
[2017-06-12] MEDS: DIVALPROEX SODIUM E.R. 500 MG TAB PO SCH (21:34)
[2017-06-12] MEDS: MIRTAZAPINE 15 MG TAB PO SCH (21:34)
[2017-06-13 05:55] VITALS: BP 111/62; PULSE 57; RESP 18; TEMP 97.9; O2SAT 96
[2017-06-13] MEDS: TRIHEXYPHENIDYL HCL 2 MG TAB PO SCH ×2 (09:21→21:19)
[2017-06-13] MEDS: GABAPENTIN 100 MG CAP PO SCH ×3 (09:21→17:32)
[2017-06-13] MEDS: MELOXICAM 7.5 MG TAB PO SCH (09:21)
[2017-06-13] MEDS: HALOPERIDOL 5 MG TAB PO SCH ×2 (09:21→21:20)
--- NOTE | 2017-06-13 12:37 | HHI.PYPN ---
Subjective Remarks Patient was seen and case discussed with nursing. Patient observed talking to himself in his room. When asked about it he denied hallucinations. Continues to minimize his symptoms. Per nursing last night he had hallucinations telling him to hurt other people. During this interview, patient was talking about meeting some [employer] today in a nearby motel Objective Alert: Yes [place]: Person (ox4), Place Mood: Calm, Other (okay") Affect: Restricted (but was able to smile once or twice during interview) Memory Intact: Comment (Not formally tested) Hallucinations: Auditory (denies) Delusions: No (Does not disclose) Delusion Type: Other (internally stimulated) Suicidal: Ideation (denies at this time) Homicidal: Ideation (Denies ) Insight/Judgment Poor Vitals/IOs Vital Signs Date Time Temp Pulse Resp B/P Pulse Ox O2 Delivery O2 Flow Rate FiO2 06/13/17 05:55 97.9 57 18 111/62 96 Assessment & Plan Problem List: (1) Schizophrenia ICD Code: F20.9 Assessment & Plan Continue current treatment plan Justification for Cont. Inpt. Patient would decompensate in a less restrictive setting Problem Qualifiers (1) Schizophrenia: Qualified Code: F20.0 - Paranoid schizophrenia Prasahnt Shah DO Jun 13, 2017 12:37
[2017-06-13 17:00] VITALS: BP 112/70; PULSE 57; RESP 18; TEMP 97.6; O2SAT 98
[2017-06-13] MEDS: DIVALPROEX SODIUM E.R. 500 MG TAB PO SCH (21:19)
[2017-06-13] MEDS: traZODone HCL 100 MG TAB PO SCH (21:19)
[2017-06-13] MEDS: MIRTAZAPINE 15 MG TAB PO SCH (21:20)
[2017-06-14 05:34] VITALS: BP 102/58; PULSE 60; RESP 16; TEMP 97.9; O2SAT 96
[2017-06-14] MEDS: MECLIZINE HCL 25 MG TAB PO PRN (08:23)
[2017-06-14] MEDS: GABAPENTIN 100 MG CAP PO SCH ×3 (08:23→17:00)
[2017-06-14] MEDS: TRIHEXYPHENIDYL HCL 2 MG TAB PO SCH ×2 (08:23→20:25)
[2017-06-14] MEDS: HALOPERIDOL 5 MG TAB PO SCH ×2 (08:23→20:25)
[2017-06-14] MEDS: MELOXICAM 7.5 MG TAB PO SCH (09:00)
[2017-06-14 15:39] VITALS: BP 130/79; PULSE 61; RESP 18; TEMP 97.7; O2SAT 98
--- NOTE | 2017-06-14 16:26 | HHI.PYPN ---
Subjective Remarks Patient seen in his room with nurse Gareth and medical students Samara and Geraldine. Chart review. Patient compliant medications. Patient showing he has persistent auditory hallucinations though they wax and wane to some degree. He states when they are [place] is suicidal ideation becomes more intense. For now continue treatment Review of Systems Except as stated in HPI: all other systems reviewed are Neg Objective Alert: Yes [place]: Person (ox4), Place Mood: Calm, Other (okay") Affect: Restricted (but was able to smile once or twice during interview) Memory Intact: Comment (Not formally tested) Hallucinations: Auditory (denies) Delusions: No (Does not disclose) Delusion Type: Other (internally stimulated) Suicidal: Ideation (denies at this time) Homicidal: Ideation (Denies ) Insight/Judgment Poor Vitals/IOs Vital Signs Date Time Temp Pulse Resp B/P Pulse Ox O2 Delivery O2 Flow Rate FiO2 06/14/17 15:39 97.7 61 18 130/79 98 Assessment & Plan Problem List: (1) Schizophrenia ICD Code: F20.9 Assessment & Plan Estimated LOS: days patient continue psychotic and suicidal. Though compliant medications for now continue treatment Justification for Cont. Inpt. At this time patient will decompensate and placed in the lower level of care Discharge Planning To be determined Problem Qualifiers (1) Schizophrenia: Qualified Code: F20.0 - Paranoid schizophrenia Jake Overton MD Jun 14, 2017 16:26
[2017-06-14] MEDS: MIRTAZAPINE 15 MG TAB PO SCH (20:25)
[2017-06-14] MEDS: DIVALPROEX SODIUM E.R. 500 MG TAB PO SCH (20:26)
[2017-06-14] MEDS: traZODone HCL 100 MG TAB PO SCH (20:26)
[2017-06-15 06:31] VITALS: BP 114/74; PULSE 50; RESP 16; TEMP 98.1; O2SAT 96
[2017-06-15] MEDS: MELOXICAM 7.5 MG TAB PO SCH (09:00)
[2017-06-15] MEDS: TRIHEXYPHENIDYL HCL 2 MG TAB PO SCH ×2 (10:00→21:50)
[2017-06-15] MEDS: MECLIZINE HCL 25 MG TAB PO PRN (10:01)
[2017-06-15] MEDS: HALOPERIDOL 5 MG TAB PO SCH (10:01)
[2017-06-15] MEDS: GABAPENTIN 100 MG CAP PO SCH ×3 (10:01→18:00)
[2017-06-15 15:37] VITALS: BP 135/67; PULSE 69; RESP 18; TEMP 96.9; O2SAT 99
--- NOTE | 2017-06-15 16:34 | HHI.PYPN ---
Subjective Remarks Patient seen for follow-up, chart reviewed. As per nursing report patient continues to report auditory hallucinations which he described as "abstract voices" but denied having any auditory hallucinations today. Patient seen participating in a group activity but was able to speak with underwriter solicitation director and noted to be calm and cooperative in interview. Patient states that he be feeling "okay", denied any depressive symptoms reports having slept well, eating and drinking okay, no problems with urination or bowel movement. Patient stated he' s been up keeping with his hygiene which she has been showering daily. She reports that his auditory hallucinations are currently "under control" in which she will describe them as them being "off and on" which last about half of minutes in duration in which he is told to "talk to God". He states that this occurs about 3-4 times a day but that the hallucinations don't bother him. Patient this time denies SI, HI, AVH or delusions at this time. Patient states that he would like a new assisted living facility but feels okay to return to his previous facility and continue to work with his case resource manager Pedro in terms of possibly relocating in a near future. Review of Systems Except as stated in HPI: all other systems reviewed are Neg Objective Alert: Yes [place]: Person (ox4), Place, Situation Mood: Calm, Other (okay") Affect: Restricted (but was able to smile once or twice during interview) Memory Intact: Comment (Not formally tested) Hallucinations: Auditory (denies) Delusions: No (Does not disclose) Delusion Type: Other (none elicited at this time) Suicidal: Ideation (denies at this time) Homicidal: Ideation (Denies ) Insight/Judgment Limited insight, fair impulse control and judgment Vitals/IOs Vital Signs Date Time Temp Pulse Resp B/P Pulse Ox O2 Delivery O2 Flow Rate FiO2 06/15/17 15:37 96.9 69 18 135/67 99 Assessment & Plan Problem List: (1) Schizophrenia ICD Code: F20.9 Assessment & Plan Estimated LOS: 3-5 days. Patient at this time continues to endorse perceptual disturbances, in which the auditory hallucinations are brief but patient reports able to ignore them. Patient denies any depressive manic or anxiety symptoms at this time. Although went be increased to 5 mg a.m. and 10 mg at bedtime for psychotic symptoms. Monitor indication responsive possible adverse drug reactions. Patient encouraged to continue with upkeep with hygiene and participate in groups and activities while on the unit. Brief supportive psychotherapy provided. Discharge planning in progress. Justification for Cont. Inpt. Patient risk for decompensation and a lower level of care. Discharge Planning In progress Problem Qualifiers (1) Schizophrenia: Qualified Code: F20.0 - Paranoid schizophrenia Westley Cavazos MD Jun 15, 2017 16:34
[2017-06-15] MEDS: DIVALPROEX SODIUM E.R. 500 MG TAB PO SCH (21:50)
[2017-06-15] MEDS: traZODone HCL 100 MG TAB PO SCH (21:50)
[2017-06-15] MEDS: MIRTAZAPINE 15 MG TAB PO SCH (21:50)
[2017-06-15] MEDS: HALOPERIDOL 10 MG TAB PO SCH (21:51)
[2017-06-16 06:31] VITALS: BP 113/73; PULSE 60; RESP 18; TEMP 98; O2SAT 97
[2017-06-16] MEDS: TRIHEXYPHENIDYL HCL 2 MG TAB PO SCH ×2 (08:22→21:00)
[2017-06-16] MEDS: GABAPENTIN 100 MG CAP PO SCH ×3 (08:22→17:04)
[2017-06-16] MEDS: HALOPERIDOL 5 MG TAB PO SCH (08:22)
[2017-06-16] MEDS: MELOXICAM 7.5 MG TAB PO SCH (09:00)
[2017-06-16 17:27] VITALS: BP 106/66; PULSE 62; RESP 18; TEMP 98.1; O2SAT 94
--- NOTE | 2017-06-16 18:54 | HHI.PYPN ---
Subjective Remarks Patient seen for follow-up, chart reviewed. Patient found lying in hospital bed was able to wake up and engage in interview. Patient states that he has been feeling better, continues to endorse brief episodes of auditory hallucinations which she states that able to ignore last time was yesterday which last a couple of minutes. Patient states that he has been attending groups and activities been feeling well with mood being "good". Patient denies any depressive manic or other psychotic symptoms aside from occasional auditory hallucinations as described above. Patient denies SI, HI, AVH or delusions. Patient reports adequate tolerance to current medication regimen and denies any adverse drug reactions. Patient states that he is willing to go back to the assisted living facility and will continue working with case investigator for other options in the future. Review of Systems Except as stated in HPI: all other systems reviewed are Neg Objective Alert: Yes [place]: Person (ox4), Place, Situation Mood: Calm, Other ("good") Affect: Restricted (but more reactive today) Memory Intact: Comment (Not formally tested) Hallucinations: Auditory (occasional episodes but denies at time of interview.) Delusions: No (Does not disclose) Delusion Type: Other (none elicited at this time) Suicidal: Ideation (denies at this time) Homicidal: Ideation (Denies ) Insight/Judgment Fair insight, impulse control and judgment Vitals/IOs Vital Signs Date Time Temp Pulse Resp B/P Pulse Ox O2 Delivery O2 Flow Rate FiO2 06/16/17 17:27 98.1 62 18 106/66 94 Assessment & Plan Problem List: (1) Schizophrenia ICD Code: F20.9 Assessment & Plan Patient at this time reports improved mood and decrease in psychotic symptoms but occasionally reports auditory hallucinations which are brief and not distressful. Patient states feeling well and would like to return to his assisted living facility soon. Patient to continue current treatment. Continue to monitor medication response and adverse drug reactions. Brief supportive psychotherapy provided. Patient likely to be discharged tomorrow back to assisted living facility and to continue current treatment and follow- up. Justification for Cont. Inpt. Patient at risk for decompensation at lower level of care Discharge Planning In progress Problem Qualifiers (1) Schizophrenia: Qualified Code: F20.0 - Paranoid schizophrenia Westley Cavazos MD Jun 16, 2017 18:54
[2017-06-16] MEDS: traZODone HCL 100 MG TAB PO SCH (21:00)
[2017-06-16] MEDS: DIVALPROEX SODIUM E.R. 500 MG TAB PO SCH (21:00)
[2017-06-16] MEDS: HALOPERIDOL 10 MG TAB PO SCH (21:00)
[2017-06-16] MEDS: MIRTAZAPINE 15 MG TAB PO SCH (21:00)
[2017-06-17 05:35] VITALS: BP 126/70; PULSE 74; RESP 16; TEMP 98; O2SAT 97
[2017-06-17] MEDS: TRIHEXYPHENIDYL HCL 2 MG TAB PO SCH (09:17)
[2017-06-17] MEDS: MELOXICAM 7.5 MG TAB PO SCH (09:17)
[2017-06-17] MEDS: GABAPENTIN 100 MG CAP PO SCH ×2 (09:17→13:00)
[2017-06-17] MEDS: HALOPERIDOL 5 MG TAB PO SCH (09:17)
[2017-06-17] MEDS ORDERED: TRAZ100T6 PO (11:07)
[2017-06-17] MEDS ORDERED: HALO5TAB PO (11:07)
[2017-06-17] MEDS ORDERED: HALO10TA PO (11:07)
[2017-06-17] MEDS ORDERED: TRIH2 PO (11:07)
[2017-06-17] MEDS ORDERED: DEPA500T3 PO (11:07)
[2017-06-17] MEDS ORDERED: MELO7.5T4 PO (11:07)
[2017-06-17] MEDS ORDERED: GABA100C4 PO (11:07)
[2017-06-17] MEDS ORDERED: MIRTA15 PO (11:07)
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
== END 2017-06-17 14:40 | DRG 885 ==
LOC: NEPJ 12:11 → NEDA 17:06 → H260 17:15
PROVIDERS: ADMIT Student in an Organized Health Care Education/Training Program; ATTEND Student in an Organized Health Care Education/Training Program
DX: F20.0 Paranoid schizophrenia (principal); R45.851 Suicidal ideations; I10 Essential (primary) hypertension; F32.9 Major depressive disorder, single episode, unspecified; J44.9 Chronic obstructive pulmonary disease, unspecified; F17.210 Nicotine dependence, cigarettes, uncomplicated; F41.9 Anxiety disorder, unspecified; F12.90 Cannabis use, unspecified, uncomplicated
CPT/HCPCS: 80048; 80053; 80061; 80164; 80307; 81001; 83036; 85025; 93005

== ENCOUNTER 2017-06-18 07:55 | Emergency (ER) | payer MEDICAID, OTHER ==
[~2017-06-18] VITALS: Ht 172.7 cm; Wt 68.0 kg
[~2017-06-18 07:55] MED LIST changes: +ARIP10IN IM; +DEPA500T3 PO; +HALO10TA PO; +TRIH2 PO
[2017-06-18 07:57] VITALS: BP 114/78; PULSE 68; RESP 18; TEMP 98.5; O2SAT 96
[2017-06-18 08:36] LABS: AUTOMATED NEUTROPHIL # 5.8 TH/MM3 (1.8-7.7); BASOPHIL % 0.4 % (0.0-2.0); EOSINOPHIL # 0.1 TH/MM3 (0-0.4); EOSINOPHIL % 0.9 % (0.0-4.0); HEMATOCRIT 40.2 % (39.0-51.0); HEMO FLAGS DIFF FINAL; LYMPH % 24.7 % (9.0-44.0); LYMPHOCYTE # 2.2 TH/MM3 (1.0-4.8); MEAN CELL VOLUME 90.6 FL (80.0-100.0); MEAN CORPUSCULAR HEMOGLOBIN 30.9 PG (27.0-34.0); MEAN CORPUSCULAR HGB CONC 34.1 % (32.0-36.0); MONO % 8.5 % (0.0-8.0); NEUT % 65.5 % (16.0-70.0); PLATELET COUNT 167 TH/MM3 (150-450); RED BLOOD COUNT 4.43 MIL/MM3 (4.50-5.90); RED CELL DISTRIBUTION WIDTH 15.2 % (11.6-17.2); WHITE BLOOD COUNT 8.9 TH/MM3 (4.0-11.0)
[2017-06-18 08:43] LABS: BLOOD, URINE NEG (NEG); GLUCOSE,URINE NEG (NEG); KETONE, URINE NEG (NEG); NITRITE,URINE NEG (NEG); PH, URINE 7.5 (5.0-8.5); URINE COLOR YELLOW (YELLW/STRAW)
[2017-06-18 08:50] LABS: COMMENT (UR) CULT NOT INDICATED; CULTURE IF INDICATED CULT NOT INDICATED
[2017-06-18 08:51] LABS: ANION GAP 5 MEQ/L (5-15); AST (GOT) 26 U/L (15-37); BICARBONATE 30.6 MEQ/L (21.0-32.0); BLOOD UREA NITROGEN 20 MG/DL (7-18); CHLORIDE 100 MEQ/L (98-107); GLOMERULAR FILTRATION RATE 102 ML/MIN (>89); POTASSIUM 3.9 MEQ/L (3.5-5.1); SODIUM (NA) 136 MEQ/L (136-145)
[2017-06-18 08:52] LABS: ALT (GPT) 37 U/L (12-78)
[2017-06-18 08:55] LABS: ALKALINE PHOSPHATASE 47 U/L (45-117); TOTAL BILIRUBIN ADULT 0.6 MG/DL (0.2-1.0)
--- NOTE | 2017-06-18 10:11 | PD ---
HPI Chief Complaint: Psychiatric Symptoms Time Seen by Provider: 09:48 Travel History International Travel<30 days: No Contact w/Intl Traveler<30days: No Traveled to known affect area: No History of Present Illness HPI This is a 61-year-old man who [facility] stating that he is hearing voices. He was discharged from inpatient psychiatry yesterday. Patient states he feels like the medications aren't working. States he otherwise has been feeling well and healthy. No recent illness or injury. He follows with [facility] for outpatient psychiatry. History Past Medical History Narrative Medical Schizophrenia Social History Alcohol Use: Yes (occasionally) Tobacco Use: Yes Allergies-Medications (Allergen,Severity, Reaction): Coded Allergies: No Known Allergies (Verified , 04/30/17) Per MAR faxed by Savannah De La Cruz [phone]. Reported Meds & Prescriptions Reported Meds & Active Scripts Active Trazodone (Trazodone HCl) 100 Mg Tablet 100 Mg PO HS Trihexyphenidyl (Trihexyphenidyl HCl) 2 Mg Tab 2 Mg PO BID Mirtazapine 15 Mg Tab 15 Mg PO HS Meloxicam 7.5 Mg Tab 7.5 Mg PO DAILY Haloperidol 10 Mg Tab 10 Mg PO HS Haloperidol 5 Mg Tab 5 Mg PO DAILY Gabapentin 100 Mg Cap 100 Mg PO TID Depakote ER (Divalproex Sodium) 500 Mg Becky 1,000 Mg PO HS Meclizine (Meclizine HCl) 12.5 Mg Tab 12.5 Mg PO TID PRN Trazodone (Trazodone HCl) 100 Mg Tablet 100 Mg PO HS 15 Days Mirtazapine 15 Mg Tab 15 Mg PO HS 15 Days Divalproex ER (Divalproex Sodium) 500 Mg Tab 1,000 Mg PO HS 15 Days Gabapentin 100 Mg Cap 100 Mg PO TID 15 Days Reported Abilifswapnil Maintena Dual Chamber Inj (Aripiprazole) 400 Mg Inj 400 Mg IM Q28D Haloperidol 5 Mg Tab 5 Mg PO BID Review of Systems Except as stated in HPI: all other systems reviewed are Neg Physical Exam Narrative GENERAL: Well-appearing 61-year-old man, no acute distress. SKIN: Focused skin assessment warm/dry. HEAD: Atraumatic. Normocephalic. EYES: Pupils equal and round. No scleral icterus. No injection or drainage. ENT: No nasal bleeding or discharge. Mucous membranes pink and moist. NECK: Trachea midline. No JVD. CARDIOVASCULAR: Regular rate and rhythm. No murmur appreciated. RESPIRATORY: No accessory muscle use. Clear to auscultation. Breath sounds equal bilaterally. GASTROINTESTINAL: Abdomen soft, non-tender, nondistended. Hepatic and splenic margins not palpable. MUSCULOSKELETAL: No obvious deformities. No clubbing. No cyanosis. No edema. NEUROLOGICAL: Awake and alert. No obvious cranial nerve deficits. Motor grossly within normal limits. Normal speech. PSYCHIATRIC: Calm and cooperative. Fair insight and judgment. Not obviously responding to internal stimuli. Data Data Last Documented VS Vital Signs Date Time Temp Pulse Resp B/P Pulse Ox O2 Delivery O2 Flow Rate FiO2 06/18/17 08:03 16 06/18/17 07:57 98.5 68 114/78 96 Orders Complete Blood Count With Diff (06/18/17 07:58) Comprehensive Metabolic Panel (06/18/17 07:58) Urinalysis - C+S If Indicated (06/18/17 07:58) Diet Regular Basic (06/18/17 Breakfast) Drug Screen, Random Urine (06/18/17 07:58) Labs Laboratory Tests Test 06/18/17 08:07 White Blood Count 8.9 TH/MM3 Red Blood Count 4.43 MIL/MM3 Hemoglobin 13.7 GM/DL Hematocrit 40.2 % Mean Corpuscular Volume 90.6 FL Mean Corpuscular Hemoglobin 30.9 PG Mean Corpuscular Hemoglobin 34.1 % Concent Red Cell Distribution Width 15.2 % Platelet Count 167 TH/MM3 Mean Platelet Volume 7.9 FL Neutrophils (%) (Auto) 65.5 % Lymphocytes (%) (Auto) 24.7 % Monocytes (%) (Auto) 8.5 % Eosinophils (%) (Auto) 0.9 % Basophils (%) (Auto) 0.4 % Neutrophils # (Auto) 5.8 TH/MM3 Lymphocytes # (Auto) 2.2 TH/MM3 Monocytes # (Auto) 0.8 TH/MM3 Eosinophils # (Auto) 0.1 TH/MM3 Basophils # (Auto) 0.0 TH/MM3 CBC Comment DIFF FINAL Differential Comment Urine Color YELLOW Urine Turbidity CLEAR Urine pH 7.5 Urine Specific [place] 1.020 Urine Protein NEG mg/dL Urine Glucose (UA) NEG mg/dL Urine Ketones NEG mg/dL Urine Occult Blood NEG Urine Nitrite NEG Urine Bilirubin NEG Urine Urobilinogen 8.0 MG/DL Urine Leukocyte Esterase NEG Urine RBC 2 /hpf Microscopic Urinalysis Comment CULT NOT INDICATED Sodium Level 136 MEQ/L Potassium Level 3.9 MEQ/L Chloride Level 100 MEQ/L Carbon Dioxide Level 30.6 MEQ/L Anion Gap 5 MEQ/L Blood Urea Nitrogen 20 MG/DL Creatinine 0.77 MG/DL Estimat Glomerular Filtration 102 ML/MIN Rate Random Glucose 81 MG/DL Calcium Level 8.4 MG/DL Total Bilirubin 0.6 MG/DL Aspartate Amino Transf 26 U/L (AST/SGOT) Alanine Aminotransferase 37 U/L (ALT/SGPT) Alkaline Phosphatase 47 U/L Total Protein 7.7 GM/DL Albumin 3.7 GM/DL [facility] Medical Decision Making Medical Screen Exam Complete: Yes Emergency Medical Condition: Yes Interpretation(s) LABS: CBC is unremarkable. CMP is unremarkable. UA is unremarkable. Differential Diagnosis Schizophrenia, adjustment reaction, other Narrative Course Medical decision making. 60-year-old male with schizophrenia, discharged from inpatient psych yesterday, on medications for schizophrenia. States he still hearing voices. He is not an imminent threat to himself or others. Insight and judgment are fair. Initially wanted to see a psychiatrist here that he change his mind sided one to go back to [facility]. I think this is reasonable. I think it is more Tyrell medications. He has outpatient psychiatry follow-up. We'll arrange for transport back to [facility]. Diagnosis Primary Impression: Schizophrenia Additional Instructions: Follow-up with your outpatient psychiatrist. Med/Other Pt SpecificInfo: No Change to Meds Disposition: 01 DISCHARGE HOME Condition: Stable Jonathan Crawford MD Jun 18, 2017 10:11
== END 2017-06-18 10:56 | disposition home or self-care (01) ==
LOC: NEPD 07:55
DX: F20.9 Schizophrenia, unspecified (principal); Z79.899 Other long term (current) drug therapy; Z72.0 Tobacco use
CPT/HCPCS: 80053; 80307; 81001; 85025; 99283

== ENCOUNTER 2017-06-19 22:22 | Inpatient (IN) | payer OTHER ==
[~2017-06-19] VITALS: Ht 172.7 cm; Wt 78.2 kg
[2017-06-19 22:39] VITALS: BP 118/77; PULSE 77; RESP 18; TEMP 98.3; O2SAT 98
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
[2017-06-19] MEDS ORDERED: DIPHTH/TETANUS/ACEL PERTUSSIS (BOOSTER) 0.5 ML VIAL/PFS IM ONE (23:15)
[2017-06-19 23:32] LABS: ANION GAP 7 MEQ/L (5-15); AST (GOT) 25 U/L (15-37); BICARBONATE 27.5 MEQ/L (21.0-32.0); BLOOD UREA NITROGEN 27 MG/DL (7-18); CHLORIDE 103 MEQ/L (98-107); GLOMERULAR FILTRATION RATE 91 ML/MIN (>89); POTASSIUM 3.8 MEQ/L (3.5-5.1); SODIUM (NA) 137 MEQ/L (136-145)
[2017-06-19 23:33] LABS: ALT (GPT) 40 U/L (12-78)
[2017-06-19 23:35] LABS: ALKALINE PHOSPHATASE 48 U/L (45-117); TOTAL BILIRUBIN ADULT 0.5 MG/DL (0.2-1.0)
[2017-06-19 23:48] LABS: ALCOHOL LESS THAN 3 MG/DL (0-5)
[2017-06-20 01:07] VITALS: BP 141/87; PULSE 67; RESP 18; TEMP 99.2
[2017-06-20 07:02] VITALS: BP_SYST 128; BP_DIAS 19; BP_DIAS 79; PULSE 63; RESP 18; O2SAT 96
[2017-06-20] MEDS ORDERED: MAGNESIUM HYDROXIDE SUSP 30 ML CUP PO PRN (15:15)
[2017-06-20] MEDS ORDERED: LORazepam 2 MG/ML VIAL IM PRN (15:15)
[2017-06-20] MEDS ORDERED: ACETAMINOPHEN 325 MG TAB PO PRN (15:15)
[2017-06-20] MEDS ORDERED: LORazepam 1 MG TAB PO PRN (15:15)
[2017-06-20] MEDS ORDERED: ALUMINUM/MAGNESIUM/SIMETH 30 ML CUP PO PRN (15:15)
[2017-06-20 16:14] VITALS: BP 127/76; PULSE 69; RESP 16; TEMP 98; O2SAT 98
[2017-06-20] MEDS: GABAPENTIN 100 MG CAP PO SCH (17:56)
[2017-06-20] MEDS: HALOPERIDOL 10 MG TAB PO SCH (20:11)
[2017-06-20] MEDS: traZODone HCL 100 MG TAB PO SCH (20:11)
[2017-06-20] MEDS: DIVALPROEX SODIUM E.R. 500 MG TAB PO SCH (20:11)
[2017-06-20] MEDS: MIRTAZAPINE 15 MG TAB PO SCH (20:11)
[2017-06-20] MEDS: TRIHEXYPHENIDYL HCL 2 MG TAB PO SCH (20:11)
[2017-06-20] MEDS: REMOVE OLD NICOTINE PATCH T-DERMAL SCH (20:12)
[2017-06-21 06:40] VITALS: BP 98/54; PULSE 50; RESP 16; TEMP 98.7; O2SAT 100
[2017-06-21] MEDS: MELOXICAM 7.5 MG TAB PO SCH (09:00)
[2017-06-21] MEDS: NICOTINE 21 MG/24 HR PATCH T-DERMAL SCH (09:00)
[2017-06-21] MEDS: GABAPENTIN 100 MG CAP PO SCH ×3 (09:07→18:00)
[2017-06-21] MEDS: TRIHEXYPHENIDYL HCL 2 MG TAB PO SCH ×2 (09:07→21:16)
[2017-06-21 12:34] LABS: ANION GAP 7 MEQ/L (5-15); BICARBONATE 29.1 MEQ/L (21.0-32.0); BLOOD UREA NITROGEN 19 MG/DL (7-18); CHLORIDE 106 MEQ/L (98-107); GLOMERULAR FILTRATION RATE 107 ML/MIN (>89); POTASSIUM 4.3 MEQ/L (3.5-5.1); SODIUM (NA) 142 MEQ/L (136-145)
[2017-06-21 12:37] LABS: HDL CHOLESTEROL 40.7 MG/DL (40.0-60.0); LDL CHOLESTEROL 86 MG/DL (0-99)
[2017-06-21 16:29] LABS: HEMOGLOBIN A1b 0.7 %; HEMOGLOBIN Ao 86.1 %; HEMOGLOBIN F 1.1 %; HEMOGLOBIN LA1C 1.8 %; HEMOGLOBIN P3 3.6 %
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
[2017-06-21 19:04] VITALS: BP 102/67; PULSE 59; RESP 16; TEMP 98.2; O2SAT 99
[2017-06-21] MEDS: REMOVE OLD NICOTINE PATCH T-DERMAL SCH (21:00)
[2017-06-21] MEDS: MIRTAZAPINE 15 MG TAB PO SCH (21:16)
[2017-06-21] MEDS: DIVALPROEX SODIUM E.R. 500 MG TAB PO SCH (21:16)
[2017-06-21] MEDS: traZODone HCL 100 MG TAB PO SCH (21:16)
[2017-06-21] MEDS: HALOPERIDOL 10 MG TAB PO SCH (21:16)
[2017-06-22 05:48] VITALS: BP 115/69; PULSE 48; RESP 18; TEMP 97.4; O2SAT 96
[2017-06-22] MEDS: TRIHEXYPHENIDYL HCL 2 MG TAB PO SCH ×2 (08:17→20:34)
[2017-06-22] MEDS: HALOPERIDOL 5 MG TAB PO SCH (08:17)
[2017-06-22] MEDS: NICOTINE 21 MG/24 HR PATCH T-DERMAL SCH (08:17)
[2017-06-22] MEDS: MELOXICAM 7.5 MG TAB PO SCH (08:17)
[2017-06-22] MEDS: GABAPENTIN 100 MG CAP PO SCH ×3 (08:17→17:22)
--- NOTE | 2017-06-22 18:04 | HHI.PYPN ---
Subjective Remarks Patient seen for follow-up, chart review. Patient found walking around the halls noted to be in good spirits. Patient states that he had been feeling well , noted to have a decrease in auditory hallucinations since stated that once he was on the unit the had improved. Patient states that his medications are "working for me" and then intensity has gone from a 8/10 upon admission to a 1/ 10. Patient denies any other mood symptom, denies any suicidal or homicidal ideation denies any other psychotic symptoms. Patient reports that he feels comfortable returning back to his assisted living facility upon discharge Review of Systems Except as stated in HPI: all other systems reviewed are Neg Objective Alert: Yes [place]: Person, Place, Date Mood: Calm Affect: Restricted Memory Intact: Immediate, Recent, Remote Hallucinations: Auditory Delusions: No Delusion Type: Other (denies) Suicidal: Ideation (denies) Homicidal: Ideation (denies) Insight/Judgment Limited insight, fair impulse control and judgment Vitals/IOs Vital Signs Date Time Temp Pulse Resp B/P Pulse Ox O2 Delivery O2 Flow Rate FiO2 06/22/17 05:48 97.4 48 18 96 115/69 06/20/17 01:07 97 Assessment & Plan Problem List: (1) Schizophrenia ICD Code: F20.9 Assessment & Plan Patient this time continues to endorse some auditory hallucinations but there are minimal. He denies any other mood symptom, reports her bonding well to medication regimen and denies any adverse drug reactions. Patient to continue current treatment regimen at this time. Patient to continue to be in encouraged to maintain personal hygienic to participate in groups and activities while on the unit. Discharge planning in progress Justification for Cont. Inpt. Patient risk for further decompensation if a lower level of care. Discharge Planning In progress Westley Cavazos MD Jun 22, 2017 18:04
[2017-06-22] MEDS: MIRTAZAPINE 15 MG TAB PO SCH (20:33)
[2017-06-22] MEDS: HALOPERIDOL 10 MG TAB PO SCH (20:34)
[2017-06-22] MEDS: DIVALPROEX SODIUM E.R. 500 MG TAB PO SCH (20:34)
[2017-06-22] MEDS: traZODone HCL 100 MG TAB PO SCH (20:34)
[2017-06-22] MEDS: REMOVE OLD NICOTINE PATCH T-DERMAL SCH (20:36)
[2017-06-23 05:08] VITALS: BP 113/78; PULSE 53; RESP 16; TEMP 97.6; O2SAT 95
[2017-06-23] MEDS: TRIHEXYPHENIDYL HCL 2 MG TAB PO SCH ×2 (08:46→21:18)
[2017-06-23] MEDS: NICOTINE 21 MG/24 HR PATCH T-DERMAL SCH (08:47)
[2017-06-23] MEDS: HALOPERIDOL 5 MG TAB PO SCH (08:47)
[2017-06-23] MEDS: GABAPENTIN 100 MG CAP PO SCH ×3 (08:47→18:00)
[2017-06-23] MEDS: MELOXICAM 7.5 MG TAB PO SCH (08:47)
[2017-06-23] MEDS ORDERED: ABILIFY MAINTENA 400 MG IM SCH (09:00)
--- NOTE | 2017-06-23 13:50 | HHI.PYPN ---
Subjective Remarks Patient seen for follow, chart review. After discussion with nursing staff patient noted to be slightly suspicious and guarded but pleasant. Patient was found walking in the hallway unable to engage in interview. Patient states that he's been feeling "pretty good" denies any auditory or visual hallucinations denies tolerating medication well without any adverse drug reactions. Patient mentions that he will likely [facility] but is concerned that "half of the people are using alcohol or drugs". Patient aware that are presented from his [facility] will come tomorrow morning to meet with patient prior to discharge. Patient at this time denies SI, HI, AVH or delusions. Review of Systems Except as stated in HPI: all other systems reviewed are Neg Objective Alert: Yes [place]: Person, Place, Date Mood: Calm Affect: Restricted (able to smile at times) Memory Intact: Immediate, Recent, Remote Hallucinations: Auditory (denies at this time) Delusions: No Delusion Type: Other (denies) Suicidal: Ideation (denies) Homicidal: Ideation (denies) Insight/Judgment Fair insight, fair impulse control and judgment Labs Laboratory Tests Test 06/21/17 11:31 Blood Urea Nitrogen 19 MG/DL (7-18) Calcium Level 8.1 MG/DL (8.5-10.1) Vitals/IOs Vital Signs Date Time Temp Pulse Resp B/P Pulse Ox O2 Delivery O2 Flow Rate FiO2 06/23/17 05:08 97.6 53 16 113/78 95 06/20/17 01:07 97 Assessment & Plan Problem List: (1) Schizophrenia ICD Code: F20.9 Assessment & Plan Patient this time denies any acute psychotic symptoms, reports responding well to current treatment regimen; denies any adverse drug reactions. Patient states planning to return to his [facility], before be required to meet with a employee relations representative from his [facility] prior to be accepted back there. Patient to continue current treatment, continued to encourage personal hygiene and participate in groups and activities. Discharge planning in progress Justification for Cont. Inpt. Patient at risk for further decompensation if it lower level of care Discharge Planning In progress Westley Cavazos MD Jun 23, 2017 13:50
[2017-06-23] MEDS: REMOVE OLD NICOTINE PATCH T-DERMAL SCH (21:00)
[2017-06-23] MEDS: traZODone HCL 100 MG TAB PO SCH (21:18)
[2017-06-23] MEDS: MIRTAZAPINE 15 MG TAB PO SCH (21:18)
[2017-06-23] MEDS: HALOPERIDOL 10 MG TAB PO SCH (21:18)
[2017-06-23] MEDS: DIVALPROEX SODIUM E.R. 500 MG TAB PO SCH (21:18)
[2017-06-24 05:24] VITALS: BP 113/75; PULSE 55; RESP 16; TEMP 97.4; O2SAT 96
[2017-06-24] MEDS: TRIHEXYPHENIDYL HCL 2 MG TAB PO SCH (08:45)
[2017-06-24] MEDS: HALOPERIDOL 5 MG TAB PO SCH (08:46)
[2017-06-24] MEDS: MELOXICAM 7.5 MG TAB PO SCH (08:46)
[2017-06-24] MEDS: GABAPENTIN 100 MG CAP PO SCH ×3 (08:46→17:07)
[2017-06-24] MEDS: NICOTINE 21 MG/24 HR PATCH T-DERMAL SCH (08:50)
[2017-06-24] MEDS ORDERED: HALO5TAB PO (15:30)
[2017-06-24] MEDS ORDERED: DEPA500T3 PO (15:30)
[2017-06-24] MEDS ORDERED: MIRTA15 PO (15:30)
[2017-06-24] MEDS ORDERED: MELO7.5T4 PO (15:30)
[2017-06-24] MEDS ORDERED: TRAZ50TA12 PO (15:30)
[2017-06-24] MEDS ORDERED: GABA100C4 PO (15:30)
[2017-06-24] MEDS ORDERED: TRIH2 PO (15:30)
[2017-06-24] MEDS ORDERED: HALO10TA PO (15:30)
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
== END 2017-06-24 17:20 | DRG 885 ==
LOC: NEPD 22:22 → NEDA 06-20 14:46 → H270 06-20 15:50 → H260 06-22 17:55
PROVIDERS: ADMIT Student in an Organized Health Care Education/Training Program; ATTEND Student in an Organized Health Care Education/Training Program
DX: F20.9 Schizophrenia, unspecified (principal); I10 Essential (primary) hypertension; J44.9 Chronic obstructive pulmonary disease, unspecified; F17.210 Nicotine dependence, cigarettes, uncomplicated; M19.90 Unspecified osteoarthritis, unspecified site; Z81.8 Family history of other mental and behavioral disorders
CPT/HCPCS: 80048; 80053; 80061; 80164; 80307; 81001; 83036; 85025; 90471; 90715; 99283

== ENCOUNTER 2017-07-03 09:08 | Emergency (ER) | payer MEDICAID, OTHER ==
[~2017-07-03] VITALS: Ht 172.7 cm; Wt 68.0 kg
[~2017-07-03 09:08] MED LIST changes: -MECL12.574 PO; +TRAZ50TA12 PO
[2017-07-03 09:12] VITALS: BP 152/93; PULSE 74; RESP 20; TEMP 98; O2SAT 97
--- NOTE | 2017-07-03 10:39 | PD ---
HPI . Psychosis Chief Complaint: Psychiatric Symptoms Time Seen by Provider: 10:10 Travel History International Travel<30 days: No Contact w/Intl Traveler<30days: No Traveled to known affect area: No History of Present Illness HPI This patient presents with a chief complaint of increased psychotic symptoms including hallucinations and paranoia. He states that he has been compliant with his medications. He does not feel that they are effective. In addition, the patient would like to be moved from his current assisted living facility. He currently resides in [facility]. He denies suicidal ideation. PFSH Past Medical History Hx Anticoagulant Therapy: No Arthritis: Yes (IN LEGS ) Autoimmune Disease: No Blood Disorders: No Anxiety: Yes Depression: Yes Cardiovascular Problems: No Chemotherapy: No Chest Pain: No Congestive Heart Failure: No COPD: Yes Cerebrovascular Accident: No Diabetes: No Diminished Hearing: No Endocrine: No Gastrointestinal Disorders: No GERD: No Genitourinary: No Hiatal Hernia: No Immune Disorder: No Implanted Vascular Access Dvce: No Kidney Stones: No Musculoskeletal: Yes Neurologic: No Psychiatric: Yes (Schizophrenia) Reproductive: No Respiratory: No Immunizations Current: Yes Migraines: No Radiation Therapy: No Renal Failure: No Schizophrenia: Yes Sickle Cell Disease: No Thyroid Disease: No Ulcer: No Past Surgical History Abdominal Surgery: Yes (GALL BLADDER REMOVED) AICD: No Arteriovenous Shunt: No Cardiac Surgery: No Cholecystectomy: Yes Ear Surgery: No Endocrine Surgery: No Eye Surgery: No Genitourinary Surgery: No Gynecologic Surgery: No Insulin Pump: No Joint Replacement: No Oral Surgery: No Pacemaker: No Thoracic Surgery: No Other Surgery: Yes Social History Alcohol Use: No Tobacco Use: No Substance Use: Yes Allergies-Medications (Allergen,Severity, Reaction): Coded Allergies: No Known Allergies (Verified , 04/30/17) Per MAR faxed by [facility] [phone]. Reported Meds & Prescriptions Reported Meds & Active Scripts Active Depakote ER (Divalproex Sodium) 500 Mg Becky 1,000 Mg PO HS Trihexyphenidyl (Trihexyphenidyl HCl) 2 Mg Tab 2 Mg PO BID Trazodone (Trazodone HCl) 50 Mg Tab 100 Mg PO HS Haloperidol 5 Mg Tab 5 Mg PO DAILY Haloperidol 10 Mg Tab 10 Mg PO HS Meloxicam 7.5 Mg Tab 7.5 Mg PO DAILY Gabapentin 100 Mg Cap 100 Mg PO TID Review of Systems Except as stated in HPI: all other systems reviewed are Neg Psychiatric: Positive: Disorder of Thought, No: Suicidal Ideations Physical Exam Narrative GENERAL: The patient is watching TV in no distress. SKIN: Warm and dry. HEAD: Atraumatic. Normocephalic. EYES: Pupils equal and round. ENT: No nasal bleeding or discharge. Mucous membranes pink and moist. NECK: Trachea midline. CARDIOVASCULAR: Regular rate and rhythm. RESPIRATORY: No accessory muscle use. GASTROINTESTINAL: Abdomen soft, non-tender, nondistended. MUSCULOSKELETAL: No obvious deformities. No edema. NEUROLOGICAL: Awake and alert. No obvious cranial nerve deficits. Motor grossly within normal limits. Normal speech. PSYCHIATRIC: Good eye contact with the examiner. He does not appear to be responding to any internal stimuli. Data Data Last Documented VS Vital Signs Date Time Temp Pulse Resp B/P (MAP) Pulse Ox O2 Delivery O2 Flow Rate FiO2 07/03/17 09:12 98.0 74 20 152/93 (112) 97 Room Air Orders Orders Complete Blood Count With Diff (07/03/17 10:58) Comprehensive Metabolic Panel (07/03/17 10:58) Psych Screen (07/03/17 10:58) Drug Screen, Random Urine (07/03/17 10:58) Alcohol (Ethanol) (07/03/17 10:58) Valproic Acid (Depakene) (07/03/17 10:58) Labs Laboratory Tests Test 07/03/17 11:43 White Blood Count 5.2 TH/MM3 Red Blood Count 4.59 MIL/MM3 Hemoglobin 14.1 GM/DL Hematocrit 41.6 % Mean Corpuscular Volume 90.5 FL Mean Corpuscular Hemoglobin 30.7 PG Mean Corpuscular Hemoglobin Concent 33.9 % Red Cell Distribution Width 14.8 % Platelet Count 183 TH/MM3 Mean Platelet Volume 7.2 FL Neutrophils (%) (Auto) 50.0 % Lymphocytes (%) (Auto) 39.7 % Monocytes (%) (Auto) 7.4 % Eosinophils (%) (Auto) 2.3 % Basophils (%) (Auto) 0.6 % Neutrophils # (Auto) 2.6 TH/MM3 Lymphocytes # (Auto) 2.1 TH/MM3 Monocytes # (Auto) 0.4 TH/MM3 Eosinophils # (Auto) 0.1 TH/MM3 Basophils # (Auto) 0.0 TH/MM3 CBC Comment DIFF FINAL Differential Comment Blood Urea Nitrogen 11 MG/DL Creatinine 0.82 MG/DL Random Glucose 80 MG/DL Total Protein 7.3 GM/DL Albumin 3.5 GM/DL Calcium Level 8.2 MG/DL Alkaline Phosphatase 49 U/L Aspartate Amino Transf (AST/SGOT) 17 U/L Alanine Aminotransferase (ALT/SGPT) 25 U/L Total Bilirubin 0.4 MG/DL Sodium Level 141 MEQ/L Potassium Level 3.6 MEQ/L Chloride Level 104 MEQ/L Carbon Dioxide Level 30.9 MEQ/L Anion Gap 6 MEQ/L Estimat Glomerular Filtration Rate 95 ML/MIN Urine Opiates Screen NEG Urine Barbiturates Screen NEG Urine Amphetamines Screen NEG Urine Benzodiazepines Screen NEG Urine Cocaine Screen NEG Urine Cannabinoids Screen NEG Ethyl Alcohol Level LESS THAN 3 MG/DL MDM Medical Decision Making Medical Screen Exam Complete: Yes Emergency Medical Condition: Yes Medical Record Reviewed: Yes (patient was here about a week ago with similar symptoms. Haldol was added to his medication regimen. His mental status returned to baseline and he was discharged back to his assisted living facility. ) Differential Diagnosis Differential diagnosis of psychosis includes but is not limited to schizophrenia , schizoaffective disorder, bipolar disorder, intoxication, substance abuse, dementia Narrative Course Patient presents reporting increased psychotic features. He is also unhappy with his current living situation. I have ordered a medical screening exam which will be followed by a psychiatric consultation. CBC & BMP Diagram 07/03/17 11:43 Total Protein 7.3, Albumin 3.5, Calcium Level 8.2 L, Alkaline Phosphatase 49, Aspartate Amino Transf (AST/SGOT) 17, Alanine Aminotransferase (ALT/SGPT) 25, Total Bilirubin 0.4 Urine drug screen is negative. Alcohol level is negative. This patient is medically clear for psychiatric evaluation. Diagnosis Primary Impression: Medical clearance for psychiatric admission Condition: Stable Jen Hernandez MD Jul 03, 2017 10:39
[2017-07-03 11:55] LABS: AUTOMATED NEUTROPHIL # 2.6 TH/MM3 (1.8-7.7); BASOPHIL % 0.6 % (0.0-2.0); EOSINOPHIL # 0.1 TH/MM3 (0-0.4); EOSINOPHIL % 2.3 % (0.0-4.0); HEMATOCRIT 41.6 % (39.0-51.0); HEMO FLAGS DIFF FINAL; LYMPH % 39.7 % (9.0-44.0); LYMPHOCYTE # 2.1 TH/MM3 (1.0-4.8); MEAN CELL VOLUME 90.5 FL (80.0-100.0); MEAN CORPUSCULAR HEMOGLOBIN 30.7 PG (27.0-34.0); MEAN CORPUSCULAR HGB CONC 33.9 % (32.0-36.0); MONO % 7.4 % (0.0-8.0); PLATELET COUNT 183 TH/MM3 (150-450); RED BLOOD COUNT 4.59 MIL/MM3 (4.50-5.90); RED CELL DISTRIBUTION WIDTH 14.8 % (11.6-17.2); WHITE BLOOD COUNT 5.2 TH/MM3 (4.0-11.0)
[2017-07-03 12:33] LABS: ANION GAP 6 MEQ/L (5-15); AST (GOT) 17 U/L (15-37); BICARBONATE 30.9 MEQ/L (21.0-32.0); BLOOD UREA NITROGEN 11 MG/DL (7-18); CHLORIDE 104 MEQ/L (98-107); GLOMERULAR FILTRATION RATE 95 ML/MIN (>89); POTASSIUM 3.6 MEQ/L (3.5-5.1); SODIUM (NA) 141 MEQ/L (136-145)
[2017-07-03 12:36] LABS: ALKALINE PHOSPHATASE 49 U/L (45-117); ALT (GPT) 25 U/L (12-78); TOTAL BILIRUBIN ADULT 0.4 MG/DL (0.2-1.0)
[2017-07-03 12:38] LABS: ALCOHOL LESS THAN 3 MG/DL (0-5)
[2017-07-03 13:00] VITALS: BP 144/88; PULSE 74; RESP 20; O2SAT 97
--- NOTE | 2017-07-03 15:17 | PD ---
History of Present Illness Chief Complaint: Psychiatric Symptoms Time Seen by Provider: 15:00 Travel History International Travel<30 Days: No Contact w/Intl Traveler<30days: No Known affected area: No Legal Status Legal Status: Voluntary History of Present Illness: Patient wants a new jail. He is no longer satisfied with [facility], even though he has been there for a long time. He is not suicidal or homicidal. He in fact verbally contracts for safety. He has no psychotic symptoms. His cognition is baseline. He is seen at [facility] and wants his dye colorist formulator to get him a new jail. PFSH Past Medical History Hx Anticoagulant Therapy: No Arthritis: Yes (IN LEGS ) Autoimmune Disease: No Blood Disorders: No Anxiety: Yes Depression: Yes Cardiovascular Problems: No Chemotherapy: No Chest Pain: No Congestive Heart Failure: No COPD: Yes Cerebrovascular Accident: No Diabetes: No Diminished Hearing: No Endocrine: No Gastrointestinal Disorders: No GERD: No Genitourinary: No Hiatal Hernia: No Immune Disorder: No Implanted Vascular Access Dvce: No Kidney Stones: No Musculoskeletal: Yes Neurologic: No Psychiatric: Yes (Schizophrenia) Reproductive: No Respiratory: No Immunizations Current: Yes Migraines: No Radiation Therapy: No Renal Failure: No Schizophrenia: Yes Sickle Cell Disease: No Thyroid Disease: No Ulcer: No Past Surgical History Abdominal Surgery: Yes (GALL BLADDER REMOVED) AICD: No Arteriovenous Shunt: No Cardiac Surgery: No Cholecystectomy: Yes Ear Surgery: No Endocrine Surgery: No Eye Surgery: No Genitourinary Surgery: No Gynecologic Surgery: No Insulin Pump: No Joint Replacement: No Oral Surgery: No Pacemaker: No Thoracic Surgery: No Other Surgery: Yes Psychiatric History Psychiatric History Hx Psychiatric Treatment: Patient's last visit to [facility] was 04-30-17 to 05/03/17. Patient reports in previous biopsychosocial that he has had at least a 100 admissions to hospitals in [place] throughout his life. Patient also reports having outpatient services through [facility]. Patient confirms with this physician he is treated at [facility]. Patient does not meet criteria for psychiatric hospitalization at this time. History of Inpatient Treatment: Yes Guns or firearms in home: No Social History Hx Alcohol Use: No Hx Tobacco Use: No Hx Substance Use: Yes Substance Use Type: Marijuana, Nicotine/Cigarettes Other Substances Used: in the past-denies now Hx of Substance Use Treatment: Yes Allergies-Medications (Allergen,Severity, Reaction): Coded Allergies: No Known Allergies (Verified , 04/30/17) Per MAR faxed by [employer] [phone]. Reported Meds & Prescriptions Reported Meds & Active Scripts Active Depakote ER (Divalproex Sodium) 500 Mg Becky 1,000 Mg PO HS Trihexyphenidyl (Trihexyphenidyl HCl) 2 Mg Tab 2 Mg PO BID Trazodone (Trazodone HCl) 50 Mg Tab 100 Mg PO HS Haloperidol 5 Mg Tab 5 Mg PO DAILY Haloperidol 10 Mg Tab 10 Mg PO HS Meloxicam 7.5 Mg Tab 7.5 Mg PO DAILY Gabapentin 100 Mg Cap 100 Mg PO TID Review of Systems Except as stated in HPI: all other systems reviewed are Neg Exam Alert: Yes [place]: Person, Place, Date Mood: Calm Affect: Appropriate Speech: Clear, Logical Eye Contact: Normal Memory Intact: Immediate, Recent, Remote Insight/Judgement Baseline MDM Medical Decision Making Medical Record Reviewed: Yes Assessment/Plan Patient interviewed at bedside, record reviewed and case discussed with nurse. Patient does not meet criteria for [place] or involuntary psychiatric hospitalization or voluntary psychiatric hospitalization. Patient needs his [employer] dye colorist formulator to assist him with moving to a different jail. Patient would not discuss why he wants to change group homes with this physician. He is willing to verbally contract for safety and he has competent to do so. Orders Orders Complete Blood Count With Diff (07/03/17 10:58) Comprehensive Metabolic Panel (07/03/17 10:58) Psych Screen (07/03/17 10:58) Drug Screen, Random Urine (07/03/17 10:58) Alcohol (Ethanol) (07/03/17 10:58) Valproic Acid (Depakene) (07/03/17 10:58) Results Vital Signs Date Time Temp Pulse Resp B/P (MAP) Pulse Ox O2 Delivery O2 Flow Rate FiO2 07/03/17 09:12 98.0 74 20 152/93 (112) 97 Room Air Laboratory Tests Test 07/03/17 11:43 White Blood Count 5.2 Red Blood Count 4.59 Hemoglobin 14.1 Hematocrit 41.6 Mean Corpuscular Volume 90.5 Mean Corpuscular Hemoglobin 30.7 Mean Corpuscular Hemoglobin Concent 33.9 Red Cell Distribution Width 14.8 Platelet Count 183 Mean Platelet Volume 7.2 Neutrophils (%) (Auto) 50.0 Lymphocytes (%) (Auto) 39.7 Monocytes (%) (Auto) 7.4 Eosinophils (%) (Auto) 2.3 Basophils (%) (Auto) 0.6 Neutrophils # (Auto) 2.6 Lymphocytes # (Auto) 2.1 Monocytes # (Auto) 0.4 Eosinophils # (Auto) 0.1 Basophils # (Auto) 0.0 CBC Comment DIFF FINAL Differential Comment Blood Urea Nitrogen 11 Creatinine 0.82 Random Glucose 80 Total Protein 7.3 Albumin 3.5 Calcium Level 8.2 Alkaline Phosphatase 49 Aspartate Amino Transf (AST/SGOT) 17 Alanine Aminotransferase (ALT/SGPT) 25 Total Bilirubin 0.4 Sodium Level 141 Potassium Level 3.6 Chloride Level 104 Carbon Dioxide Level 30.9 Anion Gap 6 Estimat Glomerular Filtration Rate 95 Urine Opiates Screen NEG Urine Barbiturates Screen NEG Urine Amphetamines Screen NEG Urine Benzodiazepines Screen NEG Urine Cocaine Screen NEG Urine Cannabinoids Screen NEG Ethyl Alcohol Level LESS THAN 3 Diagnosis Primary Impression: Adjustment disorder with anxiety Condition: Stable Dustin Cary MD Jul 03, 2017 15:17
[2017-07-03 17:05] VITALS: BP 148/89; PULSE 80; RESP 19; O2SAT 97
== END 2017-07-03 18:02 | disposition home or self-care (01) ==
LOC: NEPE 09:08
DX: Z02.89 Encounter for other administrative examinations (principal); F43.22 Adjustment disorder with anxiety; F22 Delusional disorders; Z87.39 Personal history of other diseases of the musculoskeletal system and connective tissue; Z86.59 Personal history of other mental and behavioral disorders; Z87.09 Personal history of other diseases of the respiratory system
CPT/HCPCS: 80053; 80164; 80307; 85025; 99283

== ENCOUNTER 2017-07-16 03:32 | Inpatient (IN) | payer MEDICAID, OTHER ==
[~2017-07-16] VITALS: Ht 180.3 cm; Wt 72.1 kg
[~2017-07-16 03:32] MED LIST changes: -ARIP10IN IM; -DIVA500T3 PO; -MIRTA15 PO; -TRAZ100T6 PO
--- NOTE | 2017-07-16 03:39 | PD ---
HPI Chief Complaint: ba Time Seen by Provider: 03:38 Travel History International Travel<30 days: No Contact w/Intl Traveler<30days: No Traveled to known affect area: No History of Present Illness HPI 61-year-old male with history of COPD, hypertension, schizophrenia, presents to emergency department under [place] act for psychiatric evaluation. Patient states that he has been hearing voices. He has been having more hallucinations and they are starting to scare him. He cannot sleep. States he has been taking his medication on and off. Does not recall the name of his medications. Denies suicidal or homicidal ideations. No other symptoms to report. PFSH Past Medical History Hx Anticoagulant Therapy: No Arthritis: Yes (IN LEGS ) Autoimmune Disease: No Blood Disorders: No Anxiety: Yes Depression: Yes Cardiovascular Problems: No Chemotherapy: No Chest Pain: No Congestive Heart Failure: No COPD: Yes Cerebrovascular Accident: No Diabetes: No Diminished Hearing: No Endocrine: No Gastrointestinal Disorders: No GERD: No Genitourinary: No Hiatal Hernia: No Immune Disorder: No Implanted Vascular Access Dvce: No Kidney Stones: No Musculoskeletal: Yes Neurologic: No Psychiatric: Yes (Schizophrenia) Reproductive: No Respiratory: No Immunizations Current: Yes Migraines: No Radiation Therapy: No Renal Failure: No Schizophrenia: Yes Sickle Cell Disease: No Thyroid Disease: No Ulcer: No Past Surgical History Abdominal Surgery: Yes (GALL BLADDER REMOVED) AICD: No Arteriovenous Shunt: No Cardiac Surgery: No Cholecystectomy: Yes Ear Surgery: No Endocrine Surgery: No Eye Surgery: No Genitourinary Surgery: No Gynecologic Surgery: No Insulin Pump: No Joint Replacement: No Oral Surgery: No Pacemaker: No Thoracic Surgery: No Other Surgery: Yes Social History Alcohol Use: No Tobacco Use: No Substance Use: Yes Allergies-Medications (Allergen,Severity, Reaction): Coded Allergies: No Known Allergies (Verified , 04/30/17) Per MAR faxed by [employer] [phone]. Reported Meds & Prescriptions Reported Meds & Active Scripts Active Depakote ER (Divalproex Sodium) 500 Mg Becky 1,000 Mg PO HS Trihexyphenidyl (Trihexyphenidyl HCl) 2 Mg Tab 2 Mg PO BID Trazodone (Trazodone HCl) 50 Mg Tab 100 Mg PO HS Haloperidol 5 Mg Tab 5 Mg PO DAILY Haloperidol 10 Mg Tab 10 Mg PO HS Meloxicam 7.5 Mg Tab 7.5 Mg PO DAILY Gabapentin 100 Mg Cap 100 Mg PO TID Review of Systems Except as stated in HPI: all other systems reviewed are Neg Physical Exam Narrative GENERAL: Well-nourished elderly male patient, no acute distress SKIN: Focused skin assessment warm/dry. HEAD: Atraumatic. Normocephalic. EYES: Pupils equal and round. No scleral icterus. No injection or drainage. ENT: No nasal bleeding or discharge. Mucous membranes pink and moist. NECK: Trachea midline. No JVD. CARDIOVASCULAR: Regular rate and rhythm. No murmur appreciated. RESPIRATORY: No accessory muscle use. Coarse, diminished bases to auscultation. Breath sounds equal bilaterally. GASTROINTESTINAL: Abdomen soft, non-tender, nondistended. Hepatic and splenic margins not palpable. MUSCULOSKELETAL: No obvious deformities. No clubbing. No cyanosis. No edema. NEUROLOGICAL: Awake and alert. No obvious cranial nerve deficits. Motor grossly within normal limits. Normal speech. Data Data Orders Orders Complete Blood Count With Diff (07/16/17 03:38) Basic Metabolic Panel (Bmp) (07/16/17 03:38) Psych Screen (07/16/17 03:38) Drug Screen, Random Urine (07/16/17 03:38) Alcohol (Ethanol) (07/16/17 03:38) MDM Medical Decision Making Medical Screen Exam Complete: Yes Emergency Medical Condition: Yes Medical Record Reviewed: Yes Differential Diagnosis Mood disorder versus personality disorder versus adjustment reaction disorder versus substance abuse Narrative Course 61-year-old male presents to emergency department under [place] for psychiatric evaluation. Patient appears without distress. He states he is having more more auditory hallucinations. Sees that he needs his medication looked at despite not taking it correctly. Lab work is initiated. Pending no acute abnormality, patient is medically cleared to undergo psychiatric screening for further evaluation and disposition. Diagnosis Primary Impression: Acute exacerbation of chronic paranoid schizophrenia Condition: Stable Mariana New Jul 16, 2017 03:39
[2017-07-16 05:17] LABS: AUTOMATED NEUTROPHIL # 2.6 TH/MM3 (1.8-7.7); BASOPHIL % 0.5 % (0.0-2.0); EOSINOPHIL # 0.1 TH/MM3 (0-0.4); HEMATOCRIT 40.3 % (39.0-51.0); HEMO FLAGS DIFF FINAL; LYMPH % 50.3 % (9.0-44.0); LYMPHOCYTE # 3.3 TH/MM3 (1.0-4.8); MEAN CELL VOLUME 90.7 FL (80.0-100.0); MEAN CORPUSCULAR HEMOGLOBIN 30.6 PG (27.0-34.0); MEAN CORPUSCULAR HGB CONC 33.7 % (32.0-36.0); MONO % 7.3 % (0.0-8.0); NEUT % 39.9 % (16.0-70.0); PLATELET COUNT 173 TH/MM3 (150-450); RED BLOOD COUNT 4.44 MIL/MM3 (4.50-5.90); RED CELL DISTRIBUTION WIDTH 14.6 % (11.6-17.2); WHITE BLOOD COUNT 6.6 TH/MM3 (4.0-11.0)
[2017-07-16 05:33] LABS: ANION GAP 6 MEQ/L (5-15); BICARBONATE 29.5 MEQ/L (21.0-32.0); BLOOD UREA NITROGEN 26 MG/DL (7-18); CHLORIDE 103 MEQ/L (98-107); GLOMERULAR FILTRATION RATE 102 ML/MIN (>89); SODIUM (NA) 138 MEQ/L (136-145)
[2017-07-16 05:38] LABS: ALCOHOL LESS THAN 3 MG/DL (0-5)
[2017-07-16 06:43] VITALS: BP 138/86; PULSE 60; RESP 16
[2017-07-16 09:47] VITALS: BP 135/107; PULSE 67; RESP 18; TEMP 97.2; O2SAT 97
[2017-07-16] MEDS ORDERED: LORazepam 2 MG/ML VIAL IM PRN (13:00)
[2017-07-16] MEDS ORDERED: ALUMINUM/MAGNESIUM/SIMETH 30 ML CUP PO PRN (13:00)
[2017-07-16] MEDS ORDERED: LORazepam 1 MG TAB PO PRN (13:00)
[2017-07-16] MEDS ORDERED: MAGNESIUM HYDROXIDE SUSP 30 ML CUP PO PRN (13:00)
[2017-07-16] MEDS ORDERED: ACETAMINOPHEN 325 MG TAB PO PRN (13:00)
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
[2017-07-16 15:45] VITALS: BP 131/73; PULSE 55; RESP 18; TEMP 97.5; O2SAT 97
[2017-07-16] MEDS: traZODone HCL 50 MG TAB PO PRN (22:37)
[2017-07-17 06:34] VITALS: BP 107/70; PULSE 99; RESP 16; TEMP 98; O2SAT 96
[2017-07-17 12:24] LABS: AUTOMATED NEUTROPHIL # 3.2 TH/MM3 (1.8-7.7); BASOPHIL % 0.7 % (0.0-2.0); EOSINOPHIL # 0.1 TH/MM3 (0-0.4); EOSINOPHIL % 2.4 % (0.0-4.0); HEMATOCRIT 41.2 % (39.0-51.0); HEMO FLAGS DIFF FINAL; LYMPH % 34.2 % (9.0-44.0); MEAN CELL VOLUME 89.9 FL (80.0-100.0); MEAN CORPUSCULAR HEMOGLOBIN 30.8 PG (27.0-34.0); MEAN CORPUSCULAR HGB CONC 34.2 % (32.0-36.0); MONO % 9.2 % (0.0-8.0); NEUT % 53.5 % (16.0-70.0); PLATELET COUNT 158 TH/MM3 (150-450); RED BLOOD COUNT 4.58 MIL/MM3 (4.50-5.90); RED CELL DISTRIBUTION WIDTH 14.8 % (11.6-17.2)
[2017-07-17 12:54] LABS: ALT (GPT) 30 U/L (12-78); ANION GAP 6 MEQ/L (5-15); AST (GOT) 19 U/L (15-37); BICARBONATE 30.8 MEQ/L (21.0-32.0); BLOOD UREA NITROGEN 20 MG/DL (7-18); CHLORIDE 103 MEQ/L (98-107); GLOMERULAR FILTRATION RATE 124 ML/MIN (>89); POTASSIUM 3.8 MEQ/L (3.5-5.1); SODIUM (NA) 140 MEQ/L (136-145)
--- NOTE | 2017-07-17 12:59 | HHI.PYPN ---
Subjective Remarks Patient seen, case discussed with nurse and labs reviewed. Remains reclusive, complaining of auditory hallucinations, suicidality and paranoia. Review of Systems Except as stated in HPI: all other systems reviewed are Neg Objective Alert: Yes [place]: Person, Place, Date Mood: Anxious Affect: Restricted Memory Intact: Immediate Hallucinations: Auditory Delusions: Yes Delusion Type: Paranoid, Other Suicidal: Ideation Homicidal: Ideation (no) Insight/Judgment Impaired Labs Test 07/17/17 11:02 White Blood Count 6.0 TH/MM3 Red Blood Count 4.58 MIL/MM3 Hemoglobin 14.1 GM/DL Hematocrit 41.2 % Mean Corpuscular Volume 89.9 FL Mean Corpuscular Hemoglobin 30.8 PG Mean Corpuscular Hemoglobin Concent 34.2 % Red Cell Distribution Width 14.8 % Platelet Count 158 TH/MM3 Mean Platelet Volume 8.1 FL Neutrophils (%) (Auto) 53.5 % Lymphocytes (%) (Auto) 34.2 % Monocytes (%) (Auto) 9.2 % Eosinophils (%) (Auto) 2.4 % Basophils (%) (Auto) 0.7 % Neutrophils # (Auto) 3.2 TH/MM3 Lymphocytes # (Auto) 2.0 TH/MM3 Monocytes # (Auto) 0.5 TH/MM3 Eosinophils # (Auto) 0.1 TH/MM3 Basophils # (Auto) 0.0 TH/MM3 CBC Comment DIFF FINAL Differential Comment Blood Urea Nitrogen 20 MG/DL Creatinine 0.65 MG/DL Random Glucose 86 MG/DL Albumin 3.1 GM/DL Calcium Level 8.3 MG/DL Aspartate Amino Transf (AST/SGOT) 19 U/L Alanine Aminotransferase (ALT/SGPT) 30 U/L Sodium Level 140 MEQ/L Potassium Level 3.8 MEQ/L Chloride Level 103 MEQ/L Carbon Dioxide Level 30.8 MEQ/L Anion Gap 6 MEQ/L Estimat Glomerular Filtration Rate 124 ML/MIN Triglycerides Level 197 MG/DL Cholesterol Level 136 MG/DL Vitals/IOs Vital Signs Date Time Temp Pulse Resp B/P (MAP) Pulse Ox O2 Delivery O2 Flow Rate FiO2 07/17/17 06:34 98.0 99 16 107/70 (82) 96 07/16/17 09:47 Room Air Assessment & Plan Problem List: (1) Schizophrenia, paranoid, chronic ICD Codes: F20.0 - Paranoid schizophrenia Status: Acute Assessment & Plan Estimated LOS: days patient to be observed and evaluated on current antipsychotic regimen. Will assess for efficacy and tolerability. Justification for Cont. Inpt. Psychotic and suicidal. Dustin aCry MD Jul 17, 2017 12:59
[2017-07-17 13:20] LABS: ALKALINE PHOSPHATASE 43 U/L (45-117); HDL CHOLESTEROL 33.8 MG/DL (40.0-60.0); LDL CHOLESTEROL 63 MG/DL (0-99); TOTAL BILIRUBIN ADULT 0.4 MG/DL (0.2-1.0)
--- NOTE | 2017-07-17 13:30 | EKG ---
Date Performed: 07/17/2017 Time Performed: 09:03:54 PTAGE: 61 years EKG: SINUS BRADYCARDIA NONSPECIFIC T-WAVE ABNORMALITY Compared to prior tracing no significant c hange ABNORMAL ECG PREVIOUS TRACING : 06/09/2017 20.26 DOCTOR: Cachorro Dior Interpretating Date/Time 07/17/2017 13:28:30
[2017-07-17 15:00] LABS: HEMOGLOBIN A1b 0.7 %; HEMOGLOBIN Ao 85.8 %; HEMOGLOBIN LA1C 1.9 %; HEMOGLOBIN P3 3.7 %
[2017-07-17 17:59] VITALS: BP 103/61; PULSE 70; RESP 16; TEMP 98.6; O2SAT 98
[2017-07-18 07:06] VITALS: BP 121/73; PULSE 60; RESP 18; TEMP 97.6; O2SAT 97
--- NOTE | 2017-07-18 15:20 | HHI.PYPN ---
Subjective Remarks Remains in bed and seclusive. Patient seen, chart reviewed and case discussed with nursing. Patient admits to auditory hallucinations and paranoia but states they are slightly improved. Review of Systems Except as stated in HPI: all other systems reviewed are Neg Objective Alert: Yes [place]: Person, Place, Date, Situation Mood: Anxious Affect: Restricted Memory Intact: Immediate, Recent, Remote Hallucinations: Auditory Delusions: Yes Delusion Type: Paranoid, Other Suicidal: Ideation Homicidal: Ideation Insight/Judgment Impaired Vitals/IOs Vital Signs Date Time Temp Pulse Resp B/P (MAP) Pulse Ox O2 Delivery O2 Flow Rate FiO2 07/18/17 07:06 97.6 60 18 121/73 (89) 97 07/16/17 09:47 Room Air Intake and Output 07/18/17 07/18/17 07/18/17 07:59 15:59 23:59 Intake Total 480 ml 360 ml Balance 480 ml 360 ml Assessment & Plan Problem List: (1) Schizophrenia, paranoid, chronic ICD Codes: F20.0 - Paranoid schizophrenia Status: Acute Assessment & Plan Estimated LOS: days patient requires more time on antipsychotic medication. He remains paranoid with auditory hallucinations and suicidal. Justification for Cont. Inpt. Suicidal ideation with plan to overdose. Dustin Cary MD Jul 18, 2017 15:20
[2017-07-18 17:00] VITALS: BP 88/62; PULSE 101; RESP 19; TEMP 97.7; O2SAT 95
[2017-07-18] MEDS: cloNIDine HCL 0.1 MG TAB PO ONE ×2 (17:34→17:45)
[2017-07-18] MEDS: hydrOXYzine HCL 50 MG TAB PO PRN (17:34)
[2017-07-18] MEDS: traZODone HCL 50 MG TAB PO PRN (22:22)
[2017-07-19 06:20] VITALS: BP 120/69; PULSE 56; RESP 17; TEMP 97.6; O2SAT 97
--- NOTE | 2017-07-19 09:48 | HHI.PYPN ---
Subjective Remarks Patient seen and examined with nurse in coverage. Chart reviewed. I note the patient is presently on no scheduled psychotropics. Case discussed with nursing staff. Patient's [place] act this morning. Happily, he is willing to sign voluntary. On my examination today, the patient reports that he remains a little bit paranoid. He denies any SI, HI or AVH. Denies any chest pain, shortness of breath or other physical complaints. He is agreeable to resuming medications as ordered during his recent hospitalization in June of this year. Review of Systems ROS Limitations: Psychotic, Poor Historian Except as stated in HPI: all other systems reviewed are Neg Objective Alert: Yes [place]: Person, Place, Date Mood: Calm Affect: Flat Memory Intact: Comment (not formally assessed) Hallucinations: Other (denies AVH) Delusions: Yes Delusion Type: Paranoid Suicidal: Ideation (denies SI) Homicidal: Ideation (denies HI) Insight/Judgment Poor Remarks No motor abnormalities noted. Labs Labs reviewed. Vitals/IOs Vital Signs Date Time Temp Pulse Resp B/P (MAP) Pulse Ox O2 Delivery O2 Flow Rate FiO2 07/19/17 06:20 97.6 56 17 120/69 (86) 97 07/16/17 09:47 Room Air Assessment & Plan Problem List: (1) Schizophrenia, paranoid, chronic ICD Codes: F20.0 - Paranoid schizophrenia Status: Acute Assessment & Plan Resume psychotropics from previous admission including Depakote 1 g at bedtime, Remeron 15 mg at bedtime, Haldol 5/10 mg, trazodone 100 mg at bedtime and Artane 2 mg twice a day. Continue to monitor on the inpatient unit. Continue other medications and care as ordered. Patient may sign voluntary. Justification for Cont. Inpt. Med changes. Risk for decompensation. Impairment in reality construction. Discharge Planning Pending psychiatric stabilization Request HC Surrog/Guard Advoc?: No Jose Luis Turner MD Jul 19, 2017 09:48
[2017-07-19 18:13] VITALS: BP 125/69; PULSE 65; RESP 17; TEMP 98.2; O2SAT 98
[2017-07-19] MEDS: DIVALPROEX SODIUM E.R. 500 MG TAB PO SCH (21:55)
[2017-07-19] MEDS: HALOPERIDOL 10 MG TAB PO SCH (21:55)
[2017-07-19] MEDS: traZODone HCL 100 MG TAB PO SCH (21:55)
[2017-07-19] MEDS: MIRTAZAPINE 15 MG TAB PO SCH (21:55)
[2017-07-19] MEDS: TRIHEXYPHENIDYL HCL 2 MG TAB PO SCH (21:55)
[2017-07-20 05:52] VITALS: BP 109/76; PULSE 55; RESP 16; TEMP 97.8; O2SAT 97
[2017-07-20] MEDS: HALOPERIDOL 5 MG TAB PO SCH (09:34)
[2017-07-20] MEDS: TRIHEXYPHENIDYL HCL 2 MG TAB PO SCH ×2 (09:35→21:44)
--- NOTE | 2017-07-20 10:09 | HHI.PYPN ---
Subjective Remarks Patient seen in his room with nurse Vivien and counselor Izzy, chart review, patient compliant medications. Patient calm pleasant today sitting the auditory hallucinations are diminishing. He does denies suicidality at this time, patient is been no behavioral problems. He does wish to return to [facility] when she is recovered sufficiently. For now continue treatment Review of Systems Except as stated in HPI: all other systems reviewed are Neg Objective Alert: Yes [place]: Person, Place, Date Mood: Calm Affect: Flat Memory Intact: Comment (not formally assessed) Hallucinations: Other (denies AVH) Delusions: Yes Delusion Type: Paranoid Suicidal: Ideation (denies SI) Homicidal: Ideation (denies HI) Insight/Judgment Poor Vitals/IOs Vital Signs Date Time Temp Pulse Resp B/P (MAP) Pulse Ox O2 Delivery O2 Flow Rate FiO2 07/20/17 05:52 97.8 55 16 109/76 (87) 97 07/16/17 09:47 Room Air Assessment & Plan Problem List: (1) Schizophrenia, paranoid, chronic ICD Codes: F20.0 - Paranoid schizophrenia Status: Acute Assessment & Plan Estimated LOS: days patient continue psychotic though the voices are diminishing, paranoia is markedly diminished also. Patient compliant medications. For now continue treatment Justification for Cont. Inpt. At this time patient will decompensate if not placed in an appropriate level of care Discharge Planning To be determined Request HC Surrog/Guard Advoc?: No Jake Overton MD Jul 20, 2017 10:09
[2017-07-20 18:00] VITALS: BP 111/64; PULSE 63; RESP 17; TEMP 98.2; O2SAT 98
[2017-07-20] MEDS: traZODone HCL 100 MG TAB PO SCH (21:44)
[2017-07-20] MEDS: HALOPERIDOL 10 MG TAB PO SCH (21:45)
[2017-07-20] MEDS: hydrOXYzine HCL 50 MG TAB PO PRN (21:45)
[2017-07-20] MEDS: DIVALPROEX SODIUM E.R. 500 MG TAB PO SCH (21:45)
[2017-07-20] MEDS: MIRTAZAPINE 15 MG TAB PO SCH (21:45)
[2017-07-21 05:00] VITALS: BP 97/58; PULSE 52; RESP 18; TEMP 98.9; O2SAT 97
[2017-07-21] MEDS ORDERED: TRIH2 PO (08:36)
[2017-07-21] MEDS ORDERED: DEPA500T3 PO (08:36)
[2017-07-21] MEDS ORDERED: MIRTA15 PO (08:36)
[2017-07-21] MEDS ORDERED: HALO5TAB PO (08:36)
[2017-07-21] MEDS ORDERED: TRAZ50TA12 PO (08:36)
[2017-07-21] MEDS: TRIHEXYPHENIDYL HCL 2 MG TAB PO SCH (09:00)
[2017-07-21] MEDS: HALOPERIDOL 5 MG TAB PO SCH (09:00)
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
== END 2017-07-21 10:35 | DRG 885 ==
LOC: NEPD 03:32 → NEDA 12:53 → H260 15:43
PROVIDERS: ADMIT Psychiatry & Neurology Psychiatry; ATTEND Psychiatry & Neurology Psychiatry
DX: F20.0 Paranoid schizophrenia (principal); R45.851 Suicidal ideations; Z91.5 Personal history of self-harm; F17.210 Nicotine dependence, cigarettes, uncomplicated; M19.90 Unspecified osteoarthritis, unspecified site; J44.9 Chronic obstructive pulmonary disease, unspecified
CPT/HCPCS: 80048; 80053; 80061; 80307; 82306; 82607; 83036; 84443; 85025; 93005

== ENCOUNTER 2017-07-26 09:46 | Emergency (ER) | payer MEDICAID, OTHER ==
[~2017-07-26] VITALS: Ht 172.7 cm; Wt 70.0 kg
[~2017-07-26 09:46] MED LIST changes: +MIRTA15 PO
[2017-07-26 09:47] VITALS: BP 138/92; PULSE 70; RESP 20; TEMP 98.5; O2SAT 97
[2017-07-26 09:57] VITALS: BP 135/89; PULSE 68; RESP 17; O2SAT 98
--- NOTE | 2017-07-26 10:31 | PD ---
HPI Chief Complaint: Psychiatric Symptoms Time Seen by Provider: 10:30 Travel History International Travel<30 days: No Contact w/Intl Traveler<30days: No Traveled to known affect area: No History of Present Illness HPI 61-year-old male came to the emergency room since he's been hearing voices. Patient says that the voices are telling him to do all kinds of things. Sometimes they are telling him to hurt others. No history of suicidal thoughts. Vital signs are stable. Patient denies any alcohol or drugs. He came in voluntarily. He has history of schizophrenia and has been taking his medications like is supposed to. PFS Past Medical History Narrative Medical List of his past medical, surgical, social and family history as reviewed from the nursing note. Hx Anticoagulant Therapy: No Arthritis: Yes Autoimmune Disease: No Blood Disorders: No Anxiety: Yes Depression: Yes Cardiovascular Problems: No Chemotherapy: No Chest Pain: No Congestive Heart Failure: No COPD: Yes Cerebrovascular Accident: No Diabetes: No Diminished Hearing: No Endocrine: No Gastrointestinal Disorders: No GERD: No Genitourinary: No Hiatal Hernia: No Immune Disorder: No Implanted Vascular Access Dvce: No Kidney Stones: No Musculoskeletal: Yes Neurologic: No Psychiatric: Yes (Schizophrenia) Reproductive: No Respiratory: No Immunizations Current: Yes Migraines: No Radiation Therapy: No Renal Failure: No Schizophrenia: Yes Sickle Cell Disease: No Thyroid Disease: No Ulcer: No Tetanus Vaccination: < 5 Years Influenza Vaccination: No Past Surgical History Abdominal Surgery: Yes (GALL BLADDER REMOVED) AICD: No Arteriovenous Shunt: No Cardiac Surgery: No Cholecystectomy: Yes Ear Surgery: No Endocrine Surgery: No Eye Surgery: No Genitourinary Surgery: No Gynecologic Surgery: No Insulin Pump: No Joint Replacement: No Oral Surgery: No Pacemaker: No Thoracic Surgery: No Other Surgery: Yes Social History Alcohol Use: No Tobacco Use: No Substance Use: No Allergies-Medications (Allergen,Severity, Reaction): Coded Allergies: No Known Allergies (Verified , 07/26/17) Per MAR faxed by [employer] [phone]. Comments No known drug allergies. Reported Meds & Prescriptions Reported Meds & Active Scripts Active Trazodone (Trazodone HCl) 50 Mg Tab 100 Mg PO HS Depakote ER (Divalproex Sodium) 500 Mg Becky 1,000 Mg PO HS Trihexyphenidyl (Trihexyphenidyl HCl) 2 Mg Tab 2 Mg PO BID Gabapentin 100 Mg Cap 100 Mg PO TID Reported Haloperidol 5 Mg Tab 5 Mg PO BID Meloxicam 7.5 Mg Tab 7.5 Mg PO DAILY Remeron (Mirtazapine) 15 Mg Tab 15 Mg PO HS Trihexyphenidyl (Trihexyphenidyl HCl) 2 Mg Tab 2 Mg PO BID Narrative Medication List of his home medications reviewed from the nursing note. Review of Systems Except as stated in HPI: all other systems reviewed are Neg Physical Exam Narrative GENERAL: Awake, alert, no obvious distress SKIN: Focused skin assessment warm/dry. HEAD: Atraumatic. Normocephalic. EYES: Pupils equal and round. No scleral icterus. No injection or drainage. ENT: No nasal bleeding or discharge. Mucous membranes pink and moist. NECK: Trachea midline. No JVD. CARDIOVASCULAR: Regular rate and rhythm. No murmur appreciated. RESPIRATORY: No accessory muscle use. Clear to auscultation. Breath sounds equal bilaterally. GASTROINTESTINAL: Abdomen soft, non-tender, nondistended. Hepatic and splenic margins not palpable. MUSCULOSKELETAL: No obvious deformities. No clubbing. No cyanosis. No edema. NEUROLOGICAL: Awake and alert. No obvious cranial nerve deficits. Motor grossly within normal limits. Normal speech. PSYCHIATRIC: Appropriate mood and affect; insight and judgment normal. Data Data Last Documented VS Vital Signs Date Time Temp Pulse Resp B/P (MAP) Pulse Ox O2 Delivery O2 Flow Rate FiO2 07/27/17 12:11 07/27/17 06:18 51 18 07/27/17 02:00 98.3 95 Room Air Orders Orders Complete Blood Count With Diff (07/26/17 10:33) Comprehensive Metabolic Panel (07/26/17 10:33) Electrocardiogram (07/26/17 10:33) Valproic Acid (Depakene) (07/26/17 10:33) Psych Screen (07/26/17 10:33) Drug Screen, Random Urine (07/26/17 10:33) Alcohol (Ethanol) (07/26/17 10:33) Diet Regular Basic (07/26/17 Dinner) Divalproex Er (Depakote Er) (07/26/17 21:00) Gabapentin (Neurontin) (07/27/17 09:00) Haloperidol (Haldol) (07/26/17 21:00) Mirtazapine (Remeron) (07/26/17 21:00) Trazodone (Desyrel) (07/26/17 21:00) Trihexyphenidyl (Artane) (07/26/17 21:00) Diet Regular Basic (07/27/17 Breakfast) Labs Laboratory Tests Test 07/26/17 10:55 07/26/17 11:25 White Blood Count 5.9 TH/MM3 Red Blood Count 4.34 MIL/MM3 Hemoglobin 13.3 GM/DL Hematocrit 39.1 % Mean Corpuscular Volume 90.2 FL Mean Corpuscular Hemoglobin 30.8 PG Mean Corpuscular Hemoglobin Concent 34.1 % Red Cell Distribution Width 14.4 % Platelet Count 195 TH/MM3 Mean Platelet Volume 7.6 FL Neutrophils (%) (Auto) 53.5 % Lymphocytes (%) (Auto) 34.8 % Monocytes (%) (Auto) 8.8 % Eosinophils (%) (Auto) 2.3 % Basophils (%) (Auto) 0.6 % Neutrophils # (Auto) 3.2 TH/MM3 Lymphocytes # (Auto) 2.1 TH/MM3 Monocytes # (Auto) 0.5 TH/MM3 Eosinophils # (Auto) 0.1 TH/MM3 Basophils # (Auto) 0.0 TH/MM3 CBC Comment DIFF FINAL Differential Comment Blood Urea Nitrogen 12 MG/DL Creatinine 0.76 MG/DL Random Glucose 76 MG/DL Total Protein 7.4 GM/DL Albumin 3.6 GM/DL Calcium Level 8.6 MG/DL Alkaline Phosphatase 48 U/L Aspartate Amino Transf (AST/SGOT) 14 U/L Alanine Aminotransferase (ALT/SGPT) 27 U/L Total Bilirubin 0.4 MG/DL Sodium Level 137 MEQ/L Potassium Level 3.8 MEQ/L Chloride Level 103 MEQ/L Carbon Dioxide Level 32.1 MEQ/L Anion Gap 2 MEQ/L Estimat Glomerular Filtration Rate 104 ML/MIN Valproic Acid (Depakene) Level 50 MCG/ML Ethyl Alcohol Level LESS THAN 3 MG/DL Urine Opiates Screen NEG Urine Barbiturates Screen NEG Urine Amphetamines Screen NEG Urine Benzodiazepines Screen NEG Urine Cocaine Screen NEG Urine Cannabinoids Screen NEG MDM Medical Decision Making Medical Screen Exam Complete: Yes Emergency Medical Condition: Yes Medical Record Reviewed: Yes Interpretation(s) Twelve-lead EKG was reviewed by me. Normal sinus rhythm, normal axis, nonspecific ST-T wave changes. Heart rate of 64 bpm Differential Diagnosis Schizophrenia, auditory hallucination Narrative Course 12:20 PM patient is medically cleared. He needs to be seen by psych for screening. Procedures EKG Prior to Arrival: Cheko Blankenship MD Jul 26, 2017 10:31
[2017-07-26 11:05] LABS: AUTOMATED NEUTROPHIL # 3.2 TH/MM3 (1.8-7.7); BASOPHIL % 0.6 % (0.0-2.0); EOSINOPHIL # 0.1 TH/MM3 (0-0.4); EOSINOPHIL % 2.3 % (0.0-4.0); HEMATOCRIT 39.1 % (39.0-51.0); HEMO FLAGS DIFF FINAL; LYMPH % 34.8 % (9.0-44.0); LYMPHOCYTE # 2.1 TH/MM3 (1.0-4.8); MEAN CELL VOLUME 90.2 FL (80.0-100.0); MEAN CORPUSCULAR HEMOGLOBIN 30.8 PG (27.0-34.0); MEAN CORPUSCULAR HGB CONC 34.1 % (32.0-36.0); MONO % 8.8 % (0.0-8.0); NEUT % 53.5 % (16.0-70.0); PLATELET COUNT 195 TH/MM3 (150-450); RED BLOOD COUNT 4.34 MIL/MM3 (4.50-5.90); RED CELL DISTRIBUTION WIDTH 14.4 % (11.6-17.2); WHITE BLOOD COUNT 5.9 TH/MM3 (4.0-11.0)
[2017-07-26 11:22] LABS: ANION GAP 2 MEQ/L (5-15); AST (GOT) 14 U/L (15-37); BICARBONATE 32.1 MEQ/L (21.0-32.0); BLOOD UREA NITROGEN 12 MG/DL (7-18); CHLORIDE 103 MEQ/L (98-107); GLOMERULAR FILTRATION RATE 104 ML/MIN (>89); POTASSIUM 3.8 MEQ/L (3.5-5.1); SODIUM (NA) 137 MEQ/L (136-145)
[2017-07-26 11:24] LABS: ALT (GPT) 27 U/L (12-78)
[2017-07-26 11:26] LABS: ALCOHOL LESS THAN 3 MG/DL (0-5); ALKALINE PHOSPHATASE 48 U/L (45-117); TOTAL BILIRUBIN ADULT 0.4 MG/DL (0.2-1.0)
[2017-07-26 12:30] VITALS: BP 131/92; PULSE 73; RESP 16; O2SAT 98
--- NOTE | 2017-07-26 14:13 | EKG ---
Date Performed: 07/26/2017 Time Performed: 10:40:30 PTAGE: 61 years EKG: Sinus rhythm NORMAL ECG PREVIOUS TRACING : 07/17/2017 09.03 Compared to previous tracing, nonspecific T wave changes ray ve resolved. DOCTOR: Jace Camacho Interpretating Date/Time 07/26/2017 14:11:17
[2017-07-26] MEDS ORDERED: REME15TA PO (14:42)
[2017-07-26] MEDS ORDERED: TRIH2 PO (14:42)
[2017-07-26] MEDS ORDERED: MELO7.5T4 PO (14:42)
[2017-07-26] MEDS ORDERED: HALO5TAB PO (14:42)
[2017-07-26 15:15] VITALS: BP 128/80; PULSE 80; RESP 18; TEMP 98; O2SAT 96
[2017-07-26] MEDS ORDERED: TRIHEXYPHENIDYL HCL 2 MG TAB PO SCH (21:00)
[2017-07-26] MEDS ORDERED: HALOPERIDOL 5 MG TAB PO SCH (21:00)
[2017-07-26] MEDS ORDERED: DIVALPROEX SODIUM E.R. 500 MG TAB PO SCH (21:00)
[2017-07-26] MEDS ORDERED: traZODone HCL 50 MG TAB PO SCH (21:00)
[2017-07-26] MEDS ORDERED: MIRTAZAPINE 15 MG TAB PO SCH (21:00)
[2017-07-26 22:15] VITALS: BP 141/79; PULSE 50; RESP 18; TEMP 98.9; O2SAT 99
[2017-07-27 02:00] VITALS: BP 138/81; PULSE 50; RESP 18; TEMP 98.3; O2SAT 95
[2017-07-27 06:18] VITALS: BP 148/80; PULSE 51; RESP 18
[2017-07-27] MEDS ORDERED: GABAPENTIN 100 MG CAP PO SCH (09:00)
--- NOTE | 2017-07-27 10:52 | PD ---
Physical Exam Time Seen by Provider: 10:50 RAJI Knight has evaluated the patient and patient will be discharged back to his living facility. Data Data Last Documented VS Vital Signs Date Time Temp Pulse Resp B/P (MAP) Pulse Ox O2 Delivery O2 Flow Rate FiO2 07/27/17 06:18 51 18 148/80 (102) 07/27/17 02:00 98.3 95 Room Air Orders Orders Complete Blood Count With Diff (07/26/17 10:33) Comprehensive Metabolic Panel (07/26/17 10:33) Electrocardiogram (07/26/17 10:33) Valproic Acid (Depakene) (07/26/17 10:33) Psych Screen (07/26/17 10:33) Drug Screen, Random Urine (07/26/17 10:33) Alcohol (Ethanol) (07/26/17 10:33) Diet Regular Basic (07/26/17 Dinner) Divalproex Er (Depakote Er) (07/26/17 21:00) Gabapentin (Neurontin) (07/27/17 09:00) Haloperidol (Haldol) (07/26/17 21:00) Mirtazapine (Remeron) (07/26/17 21:00) Trazodone (Desyrel) (07/26/17 21:00) Trihexyphenidyl (Artane) (07/26/17 21:00) Diet Regular Basic (07/27/17 Breakfast) Labs Laboratory Tests Test 07/26/17 10:55 07/26/17 11:25 White Blood Count 5.9 TH/MM3 Red Blood Count 4.34 MIL/MM3 Hemoglobin 13.3 GM/DL Hematocrit 39.1 % Mean Corpuscular Volume 90.2 FL Mean Corpuscular Hemoglobin 30.8 PG Mean Corpuscular Hemoglobin Concent 34.1 % Red Cell Distribution Width 14.4 % Platelet Count 195 TH/MM3 Mean Platelet Volume 7.6 FL Neutrophils (%) (Auto) 53.5 % Lymphocytes (%) (Auto) 34.8 % Monocytes (%) (Auto) 8.8 % Eosinophils (%) (Auto) 2.3 % Basophils (%) (Auto) 0.6 % Neutrophils # (Auto) 3.2 TH/MM3 Lymphocytes # (Auto) 2.1 TH/MM3 Monocytes # (Auto) 0.5 TH/MM3 Eosinophils # (Auto) 0.1 TH/MM3 Basophils # (Auto) 0.0 TH/MM3 CBC Comment DIFF FINAL Differential Comment Blood Urea Nitrogen 12 MG/DL Creatinine 0.76 MG/DL Random Glucose 76 MG/DL Total Protein 7.4 GM/DL Albumin 3.6 GM/DL Calcium Level 8.6 MG/DL Alkaline Phosphatase 48 U/L Aspartate Amino Transf (AST/SGOT) 14 U/L Alanine Aminotransferase (ALT/SGPT) 27 U/L Total Bilirubin 0.4 MG/DL Sodium Level 137 MEQ/L Potassium Level 3.8 MEQ/L Chloride Level 103 MEQ/L Carbon Dioxide Level 32.1 MEQ/L Anion Gap 2 MEQ/L Estimat Glomerular Filtration Rate 104 ML/MIN Valproic Acid (Depakene) Level 50 MCG/ML Ethyl Alcohol Level LESS THAN 3 MG/DL Urine Opiates Screen NEG Urine Barbiturates Screen NEG Urine Amphetamines Screen NEG Urine Benzodiazepines Screen NEG Urine Cocaine Screen NEG Urine Cannabinoids Screen NEG MDM Supervised Visit with DAVIAN: No Narrative Course RAJI Ackerman has evaluated the patient and the patient will be discharged home. Patient contracts safety. Denies suicidal or homicidal ideations. Patient will be provided community resource packet to [facility] for follow-up. Has friends and family for support. Patient is medically cleared for discharge. Diagnosis Primary Impression: Adjustment disorder with disturbance of emotion Additional Impression: Psychoses Referrals: [facility] (Out patient) Primary Care Physician Psychiatrist [facility] Patient Instructions: General Instructions, Mood Disorders (ED) Additional Instruction: Contract safety to your self and others Follow-up with psychiatry Follow-up with primary care provider Follow-up with [facility] Return to the emergency department immediately with worsening of symptoms Med/Other Pt SpecificInfo: No Meds Exist/No RX given Disposition: DISCHARGE HOME Condition: Stable Fatou Benitez Jul 27, 2017 10:52
--- NOTE | 2017-07-27 10:53 | PD ---
History of Present Illness Chief Complaint: Psychiatric Symptoms Time Seen by Provider: 10:45 Travel History International Travel<30 Days: No Contact w/Intl Traveler<30days: No Known affected area: No Legal Status Legal Status: Voluntary History of Present Illness: History of Present Illness HPI 61-year-old male with history of schizophrenia who presents to the emergency room since he's been hearing voices. It is alleged the patient has not been taking his medications and that he ran out of his residence when that tried to give him medications. The patient is well known to [facility] [place] multiple admissions to inpatient unit . EMR is reviewed. He was last admitted to [facility] [place] on Jul.16 for increase in auditory hallucinations. The patient was monitored in J pod over an extended period of time. He did not present any behavioral concerns. This morning he is calm, alert, oriented. Dressed in [facility] and maintaining basic hygiene. Speech is clear and logical. He does nto appear to be internally preoccupied. He denies that he is hearing any voices. No suicidal or homicidal ideation at this time. He is willing to go back to his residence at [facility]. We talked about the importance of him taking his medications every day. PFSH Past Medical History Hx Anticoagulant Therapy: No Arthritis: Yes Autoimmune Disease: No Blood Disorders: No Anxiety: Yes Depression: Yes Cardiovascular Problems: No Chemotherapy: No Chest Pain: No Congestive Heart Failure: No COPD: Yes Cerebrovascular Accident: No Diabetes: No Diminished Hearing: No Endocrine: No Gastrointestinal Disorders: No GERD: No Genitourinary: No Hiatal Hernia: No Immune Disorder: No Implanted Vascular Access Dvce: No Kidney Stones: No Musculoskeletal: Yes Neurologic: No Psychiatric: Yes (Schizophrenia) Reproductive: No Respiratory: No Immunizations Current: Yes Migraines: No Radiation Therapy: No Renal Failure: No Schizophrenia: Yes Sickle Cell Disease: No Thyroid Disease: No Ulcer: No Tetanus Vaccination: < 5 Years Influenza Vaccination: No Past Surgical History Abdominal Surgery: Yes (GALL BLADDER REMOVED) AICD: No Arteriovenous Shunt: No Cardiac Surgery: No Cholecystectomy: Yes Ear Surgery: No Endocrine Surgery: No Eye Surgery: No Genitourinary Surgery: No Gynecologic Surgery: No Insulin Pump: No Joint Replacement: No Oral Surgery: No Pacemaker: No Thoracic Surgery: No Other Surgery: Yes Psychiatric History Psychiatric History Hx Psychiatric Treatment: SCHIZOPHRENIA History of Inpatient Treatment: Yes Guns or firearms in home: No Social History Single male. Lives in an [place]. On disability Hx Alcohol Use: No Hx Tobacco Use: No Hx Substance Use: No Substance Use Type: Marijuana, Nicotine/Cigarettes Other Substances Used: in the past-denies now Hx of Substance Use Treatment: No Family Psychiatric History None reported Allergies-Medications (Allergen,Severity, Reaction): Coded Allergies: No Known Allergies (Verified , 07/26/17) Per MAR faxed by [employer] [phone]. Reported Meds & Prescriptions Reported Meds & Active Scripts Active Trazodone (Trazodone HCl) 50 Mg Tab 100 Mg PO HS Depakote ER (Divalproex Sodium) 500 Mg Becky 1,000 Mg PO HS Trihexyphenidyl (Trihexyphenidyl HCl) 2 Mg Tab 2 Mg PO BID Gabapentin 100 Mg Cap 100 Mg PO TID Reported Haloperidol 5 Mg Tab 5 Mg PO BID Meloxicam 7.5 Mg Tab 7.5 Mg PO DAILY Remeron (Mirtazapine) 15 Mg Tab 15 Mg PO HS Trihexyphenidyl (Trihexyphenidyl HCl) 2 Mg Tab 2 Mg PO BID Review of Systems Except as stated in HPI: all other systems reviewed are Neg Exam Alert: Yes [place]: Person (ox4) Mood: Calm Affect: Appropriate Speech: Clear, Logical Eye Contact: Normal Memory Intact: Comment (No gross abnormality) Hallucinations: Other (Deneis at present although at baseline he admits to having frequent halluciantions) Delusions: No Suicidal: Ideation (Deneis any) Homicidal: Ideation (Deneis any) Insight/Judgement Poor. Poor MDM Medical Decision Making Medical Record Reviewed: Yes Assessment/Plan 61-year-old male with history of schizophrenia who presents to the emergency room since he's been hearing voices. It is alleged the patient has not been taking his medications and that he ran out of his residence when that tried to give him medications. The patient is well known to [facility] [place] and at baseline he has auditory hallucinations. No suicdal or homicdal ideation. At this time the patient is psychiatrically clear for discharge. I spoke with Anil , disease case manager rn who will see patient to assist with [facility] follow up. He will return to [facility] for outpatient follow up. Orders Orders Diet Regular Basic (07/26/17 Dinner) Divalproex Er (Depakote Er) (07/26/17 21:00) Gabapentin (Neurontin) (07/27/17 09:00) Haloperidol (Haldol) (07/26/17 21:00) Mirtazapine (Remeron) (07/26/17 21:00) Trazodone (Desyrel) (07/26/17 21:00) Trihexyphenidyl (Artane) (07/26/17 21:00) Diet Regular Basic (07/27/17 Breakfast) Results Vital Signs Date Time Temp Pulse Resp B/P (MAP) Pulse Ox O2 Delivery O2 Flow Rate FiO2 07/27/17 06:18 51 18 148/80 (102) 07/27/17 02:00 98.3 50 18 138/81 (100) 95 Room Air 07/26/17 22:15 98.9 50 18 141/79 (99) 99 Room Air 07/26/17 15:15 98.0 80 18 128/80 (96) 96 Room Air 07/26/17 12:30 73 16 131/92 (105) 98 Room Air Laboratory Tests Test 07/26/17 10:55 07/26/17 11:25 White Blood Count 5.9 Red Blood Count 4.34 Hemoglobin 13.3 Hematocrit 39.1 Mean Corpuscular Volume 90.2 Mean Corpuscular Hemoglobin 30.8 Mean Corpuscular Hemoglobin Concent 34.1 Red Cell Distribution Width 14.4 Platelet Count 195 Mean Platelet Volume 7.6 Neutrophils (%) (Auto) 53.5 Lymphocytes (%) (Auto) 34.8 Monocytes (%) (Auto) 8.8 Eosinophils (%) (Auto) 2.3 Basophils (%) (Auto) 0.6 Neutrophils # (Auto) 3.2 Lymphocytes # (Auto) 2.1 Monocytes # (Auto) 0.5 Eosinophils # (Auto) 0.1 Basophils # (Auto) 0.0 CBC Comment DIFF FINAL Differential Comment Blood Urea Nitrogen 12 Creatinine 0.76 Random Glucose 76 Total Protein 7.4 Albumin 3.6 Calcium Level 8.6 Alkaline Phosphatase 48 Aspartate Amino Transf (AST/SGOT) 14 Alanine Aminotransferase (ALT/SGPT) 27 Total Bilirubin 0.4 Sodium Level 137 Potassium Level 3.8 Chloride Level 103 Carbon Dioxide Level 32.1 Anion Gap 2 Estimat Glomerular Filtration Rate 104 Valproic Acid (Depakene) Level 50 Ethyl Alcohol Level LESS THAN 3 Urine Opiates Screen NEG Urine Barbiturates Screen NEG Urine Amphetamines Screen NEG Urine Benzodiazepines Screen NEG Urine Cocaine Screen NEG Urine Cannabinoids Screen NEG Diagnosis Primary Impression: Schizophrenia Psychiatrically Cleared: Yes Med/ Other Pt Specific Info: No Change to Meds Disposition: 03 DISCHARGE TO SNF Condition: Stable Problem Qualifiers Primary Impression: Schizophrenia Qualified Codes: F20.0 - Paranoid schizophrenia Meka Hoang [facility] Jul 27, 2017 10:53
== END 2017-07-27 12:28 ==
LOC: NEPD 09:46 → NEPJ 07-27 12:28
DX: F20.0 Paranoid schizophrenia (principal); Z79.899 Other long term (current) drug therapy
CPT/HCPCS: 80053; 80164; 80307; 85025; 93005; 99284

== ENCOUNTER 2017-09-13 09:34 | Emergency (ER) | payer MEDICAID ==
[~2017-09-13] VITALS: Ht 172.7 cm; Wt 70.0 kg
[~2017-09-13 09:34] MED LIST changes: -HALO10TA PO; +MELO7.5T27 PO; -MELO7.5T4 PO; -MIRTA15 PO; +REME15TA PO
[2017-09-13 09:36] VITALS: BP 158/92; PULSE 62; RESP 15; TEMP 98.2; O2SAT 97
--- NOTE | 2017-09-13 11:27 | RADRPT ---
EXAM DATE/TIME: 09/13/2017 11:17 [place] COMPARISON: No previous studies available for comparison. INDICATIONS : Shortness of breath. MEDICAL HISTORY : Chronic obstructive pulmonary disease. SURGICAL HISTORY : None. ENCOUNTER: Initial ACUITY: 1 week PAIN SCORE: 0/10 LOCATION: Bilateral chest FINDINGS: PA and lateral views of the chest demonstrate the lungs to be symmetrically aerated without evidence of mass, infiltrate or effusion. The cardiomediastinal contours are unremarkable. Osseous structure s are intact. CONCLUSION: No acute disease. Westley Fong MD on September 13, 2017 at 11:25 Board Certified Radiologist. This report was verified electronically.
[2017-09-13] MEDS ORDERED: SODIUM CHLORIDE 0.9% FLUSH 10 ML FLUSH IV FLUSH PRN (12:45)
[2017-09-13 13:05] LABS: AUTOMATED NEUTROPHIL # 1.8 TH/MM3 (1.8-7.7); BASOPHIL % 0.8 % (0.0-2.0); EOSINOPHIL # 0.2 TH/MM3 (0-0.4); EOSINOPHIL % 3.8 % (0.0-4.0); HEMATOCRIT 39.7 % (39.0-51.0); HEMO FLAGS DIFF FINAL; LYMPH % 48.2 % (9.0-44.0); LYMPHOCYTE # 2.3 TH/MM3 (1.0-4.8); MEAN CELL VOLUME 89.3 FL (80.0-100.0); MEAN CORPUSCULAR HEMOGLOBIN 30.4 PG (27.0-34.0); MONO % 10.3 % (0.0-8.0); NEUT % 36.9 % (16.0-70.0); PLATELET COUNT 164 TH/MM3 (150-450); RED BLOOD COUNT 4.44 MIL/MM3 (4.50-5.90); RED CELL DISTRIBUTION WIDTH 14.6 % (11.6-17.2); WHITE BLOOD COUNT 4.8 TH/MM3 (4.0-11.0)
[2017-09-13 13:28] LABS: ALT (GPT) 33 U/L (12-78); ANION GAP 6 MEQ/L (5-15); AST (GOT) 22 U/L (15-37); BICARBONATE 32.5 MEQ/L (21.0-32.0); BLOOD UREA NITROGEN 18 MG/DL (7-18); CHLORIDE 101 MEQ/L (98-107); GLOMERULAR FILTRATION RATE 100 ML/MIN (>89); POTASSIUM 4.5 MEQ/L (3.5-5.1); SODIUM (NA) 139 MEQ/L (136-145)
[2017-09-13 13:31] LABS: ALKALINE PHOSPHATASE 49 U/L (45-117); TOTAL BILIRUBIN ADULT 0.5 MG/DL (0.2-1.0)
--- NOTE | 2017-09-13 14:17 | PD ---
HPI . Abdominal pain Chief Complaint: GI Complaint Time Seen by Provider: 12:16 Travel History International Travel<30 days: No Contact w/Intl Traveler<30days: No Traveled to known affect area: No History of Present Illness HPI This patient presents complaining with abdominal pain. Onset was 6 months ago. The pain is located on the left side. He states that his "lungs hurt" also and that he had hemoptysis yesterday. He further reports that he needs some alma crackers because he has not had anything to eat today. He rates his abdominal pain is 8/10. No modifying factors. PFSH Past Medical History Hx Anticoagulant Therapy: No Arthritis: Yes Autoimmune Disease: No Blood Disorders: No Anxiety: Yes Depression: Yes Cardiovascular Problems: No Chemotherapy: No Chest Pain: No Congestive Heart Failure: No COPD: Yes Cerebrovascular Accident: No Diabetes: No Diminished Hearing: No Endocrine: No Gastrointestinal Disorders: No GERD: No Genitourinary: No Hiatal Hernia: No Immune Disorder: No Implanted Vascular Access Dvce: No Kidney Stones: No Musculoskeletal: Yes Neurologic: No Psychiatric: Yes (Schizophrenia) Reproductive: No Respiratory: No Immunizations Current: Yes Migraines: No Radiation Therapy: No Renal Failure: No Schizophrenia: Yes Sickle Cell Disease: No Thyroid Disease: No Ulcer: No Past Surgical History Abdominal Surgery: Yes (GALL BLADDER REMOVED) AICD: No Arteriovenous Shunt: No Cardiac Surgery: No Cholecystectomy: Yes Ear Surgery: No Endocrine Surgery: No Eye Surgery: No Genitourinary Surgery: No Gynecologic Surgery: No Insulin Pump: No Joint Replacement: No Oral Surgery: No Pacemaker: No Thoracic Surgery: No Other Surgery: Yes Social History Alcohol Use: No Tobacco Use: No Substance Use: No Allergies-Medications (Allergen,Severity, Reaction): Coded Allergies: No Known Allergies (Verified Adverse Reaction, Unknown, 09/13/17) Per MAR faxed by [email or web address] [phone]. Reported Meds & Prescriptions Reported Meds & Active Scripts Active Depakote ER (Divalproex Sodium) 500 Mg Becky 1,000 Mg PO HS Gabapentin 100 Mg Cap 100 Mg PO TID Reported Haloperidol 5 Mg Tab 5 Mg PO BID Review of Systems Except as stated in HPI: all other systems reviewed are Neg Physical Exam Narrative GENERAL: Awake and alert and in no acute distress. SKIN: warm/dry. Good color and capillary refill. HEAD: Normocephalic. Atraumatic. EYES: Pupils equal and round. No scleral icterus. No injection or drainage. ENT: No nasal bleeding or discharge. Mucous membranes pink and moist. NECK: Trachea midline. Full range of motion without pain.. CARDIOVASCULAR: Regular rate and rhythm. Heart sounds are normal. RESPIRATORY: No accessory muscle use. Clear to auscultation. Breath sounds equal bilaterally. GASTROINTESTINAL: Abdomen soft. Nontender. Bowel sounds present. Nondistended. MUSCULOSKELETAL: No obvious deformities. NEUROLOGICAL: Awake and alert. No obvious cranial nerve deficits. Motor grossly within normal limits. Normal speech. PSYCHIATRIC: Appropriate mood and affect; insight and judgment normal. Data Data Last Documented VS Vital Signs Date Time Temp Pulse Resp B/P (MAP) Pulse Ox O2 Delivery O2 Flow Rate FiO2 09/13/17 09:36 98.2 62 15 158/92 (114) 97 Orders Orders Chest, Pa & Lat (09/13/17 ) Complete Blood Count With Diff (09/13/17 12:37) Comprehensive Metabolic Panel (09/13/17 12:37) Lipase (09/13/17 12:37) Iv Access Insert/Monitor (09/13/17 12:37) Sodium Chloride 0.9% Flush (Ns Flush) (09/13/17 12:45) Labs Laboratory Tests Test 09/13/17 12:50 White Blood Count 4.8 TH/MM3 Red Blood Count 4.44 MIL/MM3 Hemoglobin 13.5 GM/DL Hematocrit 39.7 % Mean Corpuscular Volume 89.3 FL Mean Corpuscular Hemoglobin 30.4 PG Mean Corpuscular Hemoglobin Concent 34.0 % Red Cell Distribution Width 14.6 % Platelet Count 164 TH/MM3 Mean Platelet Volume 7.7 FL Neutrophils (%) (Auto) 36.9 % Lymphocytes (%) (Auto) 48.2 % Monocytes (%) (Auto) 10.3 % Eosinophils (%) (Auto) 3.8 % Basophils (%) (Auto) 0.8 % Neutrophils # (Auto) 1.8 TH/MM3 Lymphocytes # (Auto) 2.3 TH/MM3 Monocytes # (Auto) 0.5 TH/MM3 Eosinophils # (Auto) 0.2 TH/MM3 Basophils # (Auto) 0.0 TH/MM3 CBC Comment DIFF FINAL Differential Comment Blood Urea Nitrogen 18 MG/DL Creatinine 0.78 MG/DL Random Glucose 81 MG/DL Total Protein 7.5 GM/DL Albumin 3.4 GM/DL Calcium Level 8.3 MG/DL Alkaline Phosphatase 49 U/L Aspartate Amino Transf (AST/SGOT) 22 U/L Alanine Aminotransferase (ALT/SGPT) 33 U/L Total Bilirubin 0.5 MG/DL Sodium Level 139 MEQ/L Potassium Level 4.5 MEQ/L Chloride Level 101 MEQ/L Carbon Dioxide Level 32.5 MEQ/L Anion Gap 6 MEQ/L Estimat Glomerular Filtration Rate 100 ML/MIN Lipase 120 U/L [facility] Medical Decision Making Medical Screen Exam Complete: Yes Emergency Medical Condition: Yes Differential Diagnosis Differential diagnosis of abdominal pain includes but is not limited to gastritis, pancreatitis, hepatitis, gastroenteritis, gallbladder disease, constipation, urinary retention, UTI, peptic ulcer disease, diverticulitis or appendicitis Narrative Course This patient presents with a 6 month history of abdominal pain. He is also complaining that his lungs hurt. He has a benign abdominal exam. His lungs are clear with full air movement throughout. Last Impressions Chest X-Ray 09/13/17 0000 Signed Impressions: Service Date/Time: Wednesday, September 13, 2017 11:17 - CONCLUSION: No acute disease. Westley Fong MD CBC & BMP Diagram 09/13/17 12:50 Total Protein 7.5, Albumin 3.4, Calcium Level 8.3 L, Alkaline Phosphatase 49, Aspartate Amino Transf (AST/SGOT) 22, Alanine Aminotransferase (ALT/SGPT) 33, Total Bilirubin 0.5 The history, exam, diagnostic testing, and current condition do not suggest any significant pathology to warrant further testing, continued ED treatment, admission, or surgical evaluation at this point. No EMC was found. The patient 's condition is stable and appropriate for discharge. Diagnosis Primary Impression: Abdominal pain Qualified Codes: R10.12 - Left upper quadrant pain Additional Impressions: Pleurisy Schizophrenia, paranoid, chronic Patient Instructions: Abdominal Pain (ED), General Instructions Disposition: 01 DISCHARGE HOME Condition: Stable Jen Hernandez MD Sep 13, 2017 14:17
== END 2017-09-13 15:22 | disposition home or self-care (01) ==
LOC: NEPD 09:34
DX: R10.12 Left upper quadrant pain (principal); R09.1 Pleurisy; F20.0 Paranoid schizophrenia
CPT/HCPCS: 71020; 80053; 83690; 85025; 99284

== ENCOUNTER 2017-12-29 00:56 | Emergency (ER) | payer MEDICAID ==
[2017-12-29] VITALS (9 sets, daily range): BP systolic 121–184; BP diastolic 77–102; PULSE 49–65; RESP 14–20; TEMP 95.4–98.1; O2SAT 96–100
[~2017-12-29] VITALS: Ht 177.8 cm; Wt 74.0 kg
[~2017-12-29 00:56] MED LIST changes: -MELO7.5T27 PO; -REME15TA PO; -TRAZ50TA12 PO; -TRIH2 PO
[2017-12-29] MEDS ORDERED: NITROGLYCERIN 2% OINT 1 GM PACKET TOP ONE (01:00)
[2017-12-29] MEDS ORDERED: NITROGLYCERIN 0.4 MG SL 25 TABS/BTL SL ONE (01:00)
[2017-12-29] MEDS ORDERED: SODIUM CHLORIDE 0.9% FLUSH 10 ML FLUSH IVF PRN (01:00)
[2017-12-29 01:27] LABS: AUTOMATED NEUTROPHIL # 1.6 TH/MM3 (1.8-7.7); BASOPHIL # 0.1 TH/MM3 (0-0.2); BASOPHIL % 1.4 % (0.0-2.0); EOSINOPHIL # 0.2 TH/MM3 (0-0.4); EOSINOPHIL % 3.6 % (0.0-4.0); HEMATOCRIT 37.2 % (39.0-51.0); HEMOGLOBIN 13.5 GM/DL (13.0-17.0); LYMPH % 56.1 % (9.0-44.0); LYMPHOCYTE # 2.9 TH/MM3 (1.0-4.8); MEAN CELL VOLUME 88.2 FL (80.0-100.0); MEAN PLATELET VOLUME 7.7 FL (7.0-11.0); MONO % 8.2 % (0.0-8.0); MONOCYTE # 0.4 TH/MM3 (0-0.9); NEUT % 30.7 % (16.0-70.0); PLATELET COUNT 138 TH/MM3 (150-450); RED BLOOD COUNT 4.22 MIL/MM3 (4.50-5.90); RED CELL DISTRIBUTION WIDTH 15.8 % (11.6-17.2); WHITE BLOOD COUNT 5.2 TH/MM3 (4.0-11.0)
[2017-12-29 01:38] LABS: MEAN CORPUSCULAR HGB CONC 36.2 % (32.0-36.0)
--- NOTE | 2017-12-29 01:42 | RADRPT ---
EXAM DATE/TIME: 12/29/2017 01:10 [facility] COMPARISON: CHEST SINGLE AP, May 30, 2017, 6:40. INDICATIONS : Short of breath. MEDICAL HISTORY : Chronic obstructive pulmonary disease. SURGICAL HISTORY : None. ENCOUNTER: Initial ACUITY: 1 day PAIN SCORE: 0/10 LOCATION: Bilateral chest FINDINGS: A single view of the chest demonstrates the lungs to be symmetrically aerated without evidence of mas s, infiltrate or effusion. The cardiomediastinal contours are unremarkable. Osseous structures are intact. There are multiple surgical clips in the right side of the abdomen. There are overlying elect rocardiogram leads and oxygen tubing. CONCLUSION: No acute disease. Grover Buck MD on December 29, 2017 at 1:40 Board Certified Radiologist. This report was verified electronically.
[2017-12-29 01:46] LABS: INTERNATIONAL NORMALIZED RATIO 1.2 RATIO
[2017-12-29 01:53] LABS: ALBUMIN 3.3 GM/DL (3.4-5.0); ALT (GPT) 50 U/L (12-78); AST (GOT) 33 U/L (15-37); BLOOD UREA NITROGEN 19 MG/DL (7-18); CALCIUM 8.1 MG/DL (8.5-10.1); CHLORIDE 103 MEQ/L (98-107); CREATININE 0.96 MG/DL (0.60-1.30); GLOMERULAR FILTRATION RATE 79 ML/MIN (>89); GLUCOSE,RANDOM 94 MG/DL (74-106); MAGNESIUM 2.2 MG/DL (1.5-2.5); SODIUM (NA) 142 MEQ/L (136-145)
[2017-12-29 01:57] LABS: ALKALINE PHOSPHATASE 50 U/L (45-117); TOTAL BILIRUBIN ADULT 0.6 MG/DL (0.2-1.0); TOTAL PROTEIN 7.4 GM/DL (6.4-8.2); TROPONIN I LESS THAN 0.02 NG/ML (0.02-0.05)
--- NOTE | 2017-12-29 02:13 | PD ---
HPI Chief Complaint: Chest Pain Time Seen by Provider: 00:58 Travel History International Travel<30 days: No Contact w/Intl Traveler<30days: No Traveled to known affect area: No History of Present Illness HPI The patient is a 62 year old male who presents to the [facility] emergency department with a history of abdominal pain that radiated up into his chest at 5PM yesterday. It has been constant. It was a dull pain. It was an 8/10 in severity. He had associated SOB. He has a h/o COPD and smokes 1 cig per day. He reports having a chronic smoker's cough that is no worse than usual. He denies radiation of the pain. He reports that it is in the center of his chest. The patient denies having any nausea or vomiting associated with this. He denies having any diarrhea. He denies having any diaphoresis. The patient was given 324 mg of aspirin by ambulance services along with sublingual nitroglycerin. Patient was noted to have T-wave changes according to them. The patient was noted to have improvement of his pain with nitroglycerin administration. He denies any prior history of coronary artery disease, congestive heart failure, DVT, or PE. Otherwise on review of systems, the patient denies having any known recent fevers, neck pain, urinary symptoms, or neurologic symptoms. He has had cough and congestion recurrent over the last 6 months. He denies having any indigestion or acid reflux symptoms. PFS Past Medical History Narrative Medical The patient's past medical history is significant for COPD, schizophrenia, anxiety and depression. Hx Anticoagulant Therapy: No Arthritis: Yes Autoimmune Disease: No Blood Disorders: No Anxiety: Yes Depression: Yes Cardiovascular Problems: No Chemotherapy: No Chest Pain: No Congestive Heart Failure: No COPD: Yes Cerebrovascular Accident: No Diabetes: No Diminished Hearing: No Endocrine: No Gastrointestinal Disorders: No GERD: No Genitourinary: No Hiatal Hernia: No Immune Disorder: No Implanted Vascular Access Dvce: No Kidney Stones: No Musculoskeletal: Yes Neurologic: No Psychiatric: Yes (Schizophrenia) Reproductive: No Respiratory: No Immunizations Current: Yes Migraines: No Radiation Therapy: No Renal Failure: No Schizophrenia: Yes Sickle Cell Disease: No Thyroid Disease: No Ulcer: No Influenza Vaccination: No Past Surgical History Narrative Surgical The patient's past surgical history is significant for a cholecystectomy. Abdominal Surgery: Yes (GALL BLADDER REMOVED) AICD: No Arteriovenous Shunt: No Cardiac Surgery: No Cholecystectomy: Yes Ear Surgery: No Endocrine Surgery: No Eye Surgery: No Genitourinary Surgery: No Gynecologic Surgery: No Insulin Pump: No Joint Replacement: No Oral Surgery: No Pacemaker: No Thoracic Surgery: No Other Surgery: Yes Social History Alcohol Use: No Tobacco Use: Yes (1 cig per day) Substance Use: No Allergies-Medications (Allergen,Severity, Reaction): Coded Allergies: No Known Allergies (Verified Allergy, Unknown, 12/29/17) Per MAR faxed by [employer] [phone]. Reported Meds & Prescriptions Reported Meds & Active Scripts Active Depakote ER (Divalproex Sodium) 500 Mg Becky 1,000 Mg PO HS Gabapentin 100 Mg Cap 100 Mg PO TID Reported Trihexyphenidyl (Trihexyphenidyl HCl) 2 Mg Tab 2 Mg PO BID Mirtazapine 15 Mg Tab 15 Mg PO HS Meloxicam 7.5 Mg Tab 7.5 Mg PO DAILY Haloperidol 5 Mg Tab 5 Mg PO BID Review of Systems General / Constitutional: No: Fever Eyes: No: Visual changes HENT: No: Headaches Cardiovascular: Positive: Chest Pain or Discomfort, Dyspnea on exertion Respiratory: Positive: Cough, Shortness of Breath Gastrointestinal: Positive: Abdominal Pain Genitourinary: No: Dysuria Musculoskeletal: No: Pain Skin: No Rash Neurologic: No: Weakness Psychiatric: No: Depression Endocrine: No: Polydipsia Hematologic/Lymphatic: No: Easy Bruising Physical Exam Narrative General: The patient is a well-developed well-nourished male in no acute distress. Head and Neck exam: Head is normocephalic atraumatic. Eyes: EOMI, pupils are equal round and reactive to light. Nose: Midline septum with pink mucous membranes Mouth: Dentition unremarkable. Moist mucus membranes. Posterior oropharynx is not erythematous. No tonsillar hypertrophy. Uvula midline. Airway patent. Neck: No palpable lymphadenopathy. No nuchal rigidity. No thyromegaly. Cardiovascular: Sinus bradycardia in the 50 without murmurs, gallops, or rubs. Lungs: Clear to auscultation bilaterally. No wheezes, rhonchi, or rales. Abdomen: Soft, without tenderness to palpation in all 4 quadrants of the abdomen. No guarding, rebound, or rigidity. Normal bowel sounds are audible. No tenderness on palpation of McBurney's point. Extremities: No clubbing, cyanosis, or edema. 2+ pulses in all 4 extremities. No calf tenderness on palpation. Back: No spinous process tenderness to palpation. No costovertebral angle tenderness to palpation. Neurologic Exam: Grossly nonfocal. Skin Exam: No rash noted. Intact skin that is warm and dry. Data Data Last Documented VS Vital Signs Date Time Temp Pulse Resp B/P (MAP) Pulse Ox O2 Delivery O2 Flow Rate FiO2 12/29/17 01:10 100 Nasal Cannula 2.00 12/29/17 01:04 65 18 121/78 (92) 12/29/17 00:58 98.1 Orders Orders Electrocardiogram (12/29/17 01:00) Ckmb (Isoenzyme) Profile (12/29/17 01:00) Complete Blood Count With Diff (12/29/17 01:00) Comprehensive Metabolic Panel (12/29/17 01:00) Magnesium (Mg) (12/29/17 01:00) Prothrombin Time / Inr (Pt) (12/29/17 01:00) Act Partial Throm Time (Ptt) (12/29/17 01:00) Troponin I (12/29/17 01:00) Lipase (12/29/17 01:00) Chest, Single Ap (12/29/17 01:00) Ecg Monitoring (12/29/17 01:00) Bilateral Bp Monitoring (12/29/17 01:00) Iv Access Insert/Monitor (12/29/17 01:00) Oximetry (12/29/17 01:00) Oxygen Administration (12/29/17 01:00) Nitroglycerin 2% Oint (Nitroglycerin 2% (12/29/17 01:00) Sodium Chloride 0.9% Flush (Ns Flush) (12/29/17 01:00) Nitroglycerin Sl (Nitrostat Sl) (12/29/17 01:00) Admit Order (Ed Use Only) (12/29/17 03:11) Labs Laboratory Tests Test 12/29/17 01:10 White Blood Count 5.2 TH/MM3 Red Blood Count 4.22 MIL/MM3 Hemoglobin 13.5 GM/DL Hematocrit 37.2 % Mean Corpuscular Volume 88.2 FL Mean Corpuscular Hemoglobin 32.0 PG Mean Corpuscular Hemoglobin Concent 36.2 % Red Cell Distribution Width 15.8 % Platelet Count 138 TH/MM3 Mean Platelet Volume 7.7 FL Neutrophils (%) (Auto) 30.7 % Lymphocytes (%) (Auto) 56.1 % Monocytes (%) (Auto) 8.2 % Eosinophils (%) (Auto) 3.6 % Basophils (%) (Auto) 1.4 % Neutrophils # (Auto) 1.6 TH/MM3 Lymphocytes # (Auto) 2.9 TH/MM3 Monocytes # (Auto) 0.4 TH/MM3 Eosinophils # (Auto) 0.2 TH/MM3 Basophils # (Auto) 0.1 TH/MM3 CBC Comment AUTO DIFF Differential Comment AUTO DIFF CONFIRMED Platelet Estimate LOW Platelet Morphology Comment NORMAL Red Cell Morphology Comment NORMAL Prothrombin Time 12.0 SEC Prothromb Time International Ratio 1.2 RATIO Activated Partial Thromboplast Time 25.3 SEC Blood Urea Nitrogen 19 MG/DL Creatinine 0.96 MG/DL Random Glucose 94 MG/DL Total Protein 7.4 GM/DL Albumin 3.3 GM/DL Calcium Level 8.1 MG/DL Magnesium Level 2.2 MG/DL Alkaline Phosphatase 50 U/L Aspartate Amino Transf (AST/SGOT) 33 U/L Alanine Aminotransferase (ALT/SGPT) 50 U/L Total Bilirubin 0.6 MG/DL Sodium Level 142 MEQ/L Potassium Level 3.7 MEQ/L Chloride Level 103 MEQ/L Carbon Dioxide Level 34.0 MEQ/L Anion Gap 5 MEQ/L Estimat Glomerular Filtration Rate 79 ML/MIN Total Creatine Kinase 90 U/L Troponin I LESS THAN 0.02 NG/ML Lipase 156 U/L MDM Medical Decision Making Medical Screen Exam Complete: Yes Emergency Medical Condition: Yes Medical Record Reviewed: Yes Interpretation(s) Last Impressions Chest X-Ray 12/29/17 0100 Signed Impressions: Service Date/Time: Friday, December 29, 2017 01:10 - CONCLUSION: No acute disease. Grover Buck MD Differential Diagnosis Acute coronary syndrome, versus anxiety disorder, versus acid reflux, versus pulmonary embolism Narrative Course During the course of the patient's emergency department visit, the patient's history, examination, and differential diagnosis were reviewed with the patient. The patient was placed on a router tender with oximetry and frequent blood pressure monitoring. The patient had IV access obtained and blood work sent for analysis. The patient had an EKG done on arrival that shows a sinus rhythm, nonspecific T-wave abnormalities, QRS duration 93 ms, QTC 431 ms, no acute ST segment elevation. T waves are inverted in lead III. The patient was initially provided nitroglycerin sublingual 1, nitroglycerin 1 inch to the chest wall. The patient on reexamination reported being pain free. The patient's studies were reviewed and remarkable for CMP is remarkable for CO2 of 34, BUN 19, GFR of 79, calcium 8.1, cardiac enzymes within normal limits , lipase 156. White count is 5.2, hemoglobin 13.5, platelets 138, lymphocytes 56.1. A chest x-ray shows no acute cardiopulmonary disease. The patient's results were discussed with the patient, including the plan of care. I explained that further testing and/ or monitoring is indicated based on the patient's history, examination, and/ or laboratory findings. Therefore, I recommended admission for additional evaluation. The patient expressed understanding and was agreeable with this plan. The patient was admitted to the hospital in stable condition and sent to a bed under the care of the chest pain. Diagnosis Primary Impression: Chest pain, rule out acute myocardial infarction Admitting Information Admitting Physician Requests: Observation Tisha Cintron MD Dec 29, 2017 02:13
[2017-12-29] MEDS ORDERED: SODIUM CHLORIDE 0.9% FLUSH 10 ML FLUSH IV FLUSH PRN (04:15)
[2017-12-29] MEDS ORDERED: ACETAMINOPHEN 500 MG CPLT PO PRN (04:15)
[2017-12-29] MEDS ORDERED: MIRTA15 PO (04:38)
[2017-12-29] MEDS ORDERED: MELO7.5T27 PO (04:38)
[2017-12-29] MEDS ORDERED: TRIH2 PO (04:38)
[2017-12-29 05:41] LABS: TROPONIN I LESS THAN 0.02 NG/ML (0.02-0.05)
[2017-12-29] MEDS ORDERED: cloNIDine HCL 0.2 MG TAB PO ONE (05:45)
[2017-12-29] MEDS ORDERED: RESP: ALBUTEROL 2.5 MG/IPRATROPIUM 0.5 MG NEB (SCH) INH ONE (09:00)
[2017-12-29] MEDS ORDERED: SODIUM CHLORIDE 0.9% FLUSH 10 ML FLUSH IV FLUSH SCH (09:00)
[2017-12-29] MEDS ORDERED: REGADENOSON INJ 0.4 MG/5 ML SYR ONE (11:18)
--- NOTE | 2017-12-29 12:36 | HHI.HP ---
HPI Primary Care Physician Unknown Chief Complaint Chest pain History of Present Illness This is a 62-year-old male that presents to ED with a complaint of chest discomfort that he states he has had intermittently for 6 months. He points to the center of his chest indicate where the discomfort is located. Cannot describe the intensity of it. He cannot recall being nauseous or sweaty but states that he was short of breath with it yesterday. Cannot recall how long the discomfort lasted or what brings on the discomfort. Cannot recall prior cardiac evaluation. Currently has no complaints. Review of Systems General: Patient denies fevers, chills recent, and recent travel HEENT: Patient denies headache, sore throat, difficulty swallowing. Cardiovascular: Has the chest discomfort as mentioned above. Denies sensation of heart beating rapidly or irregularly. No syncope. Denies diaphoresis. Respiratory: He recalls being short of breath yesterday. Denies inspirational chest discomfort. Denies coughing wheezing or hemoptysis. GI: Patient denies nausea, vomiting, diarrhea, abdominal pain, bloody stools. Musculoskeletal: Patient denies joint pain or edema. Denies calf pain or edema. Neurovascular: Patient denies numbness, tingling, weakness in extremities. Denies headache. Endocrine: Denies polyuria and polydipsia. Hematologic: Denies easy bruising. Skin: Denies rash or itching. Past Family Social History Allergies: Coded Allergies: No Known Allergies (Verified Allergy, Unknown, 12/29/17) Per JAN faxed by [facility] [phone]. Past Medical History COPD, schizophrenia, tobacco abuse. Past Surgical History Cannot recall surgical history. Reported Medications Reported Meds & Active Scripts Active Depakote ER (Divalproex Sodium) 500 Mg Becky 1,000 Mg PO HS Gabapentin 100 Mg Cap 100 Mg PO TID Reported Trihexyphenidyl (Trihexyphenidyl HCl) 2 Mg Tab 2 Mg PO BID Mirtazapine 15 Mg Tab 15 Mg PO HS Meloxicam 7.5 Mg Tab 7.5 Mg PO DAILY Haloperidol 5 Mg Tab 5 Mg PO BID Active Ordered Medications Current Medications Medications (Trade) Dose Ordered Sig/Feroz Route Start Time Stop Time Status Last Admin (NS Flush) 2 ml UNSCH PRN IVF 12/29/17 01:00 (NS Flush) 2 ml UNSCH PRN IV FLUSH 12/29/17 04:15 (NS Flush) 2 ml BID IV FLUSH 12/29/17 09:00 12/29/17 09:47 (Tylenol) 500 mg Q4H PRN PO 12/29/17 04:15 (Duoneb Neb) 1 ampule Q4HR NEB PRN INH 12/29/17 13:00 Family History He does not know his family medical history. Social History Admits to smoking approximately 1 pack of cigarettes daily for more than 40 years. Denies alcohol or illicit drugs. Physical Exam Vital Signs Vital Signs Date Time Temp Pulse Resp B/P (MAP) Pulse Ox O2 Delivery O2 Flow Rate FiO2 12/29/17 09:27 100 Nasal Cannula 1.50 12/29/17 08:00 95.4 50 14 177/102 (127) 100 12/29/17 06:33 52 18 162/92 (115) 12/29/17 05:19 100 Nasal Cannula 2.00 12/29/17 04:45 97.6 56 20 184/93 (123) 100 12/29/17 01:10 100 Nasal Cannula 2.00 12/29/17 01:04 65 18 121/78 (92) 98 Room Air 12/29/17 00:58 98.1 62 18 122/77 (92) 96 Physical Exam GENERAL: This is a well-nourished, well-developed patient, in no apparent distress. Patient speaks in clear complete sentences. Patient is pleasant. HEENT: Head is atraumatic and normocephalic. Neck is supple without lymphadenopathy and trachea is midline. No JVD or carotid bruits. CARDIOVASCULAR: Regular rate and rhythm without murmurs, gallops, or rubs. RESPIRATORY: Breath sounds equal bilaterally. There are expiratory wheezing. No rales or rhonchi. Chest wall is nontender. No use of accessory muscles. GASTROINTESTINAL: Abdomen is nontender, nondistended. Abdomen soft. No obvious pulsatile mass or bruit. No CVA tenderness. Strong femoral pulses bilaterally. Normal bowel sounds in all quadrants. MUSCULOSKELETAL: Patient is moving upper and lower extremities freely. No calf tenderness or edema, no Homans sign. Strong pulses in upper and lower extremities. NEUROLOGICAL: Patient is alert and oriented. Cranial nerves 2-12 are grossly intact. No focal deficits and speech is clear. SKIN: No rash and turgor is normal. Laboratory Laboratory Tests Test 12/29/17 01:10 12/29/17 04:50 White Blood Count 5.2 Red Blood Count 4.22 Hemoglobin 13.5 Hematocrit 37.2 Mean Corpuscular Volume 88.2 Mean Corpuscular Hemoglobin 32.0 Mean Corpuscular Hemoglobin Concent 36.2 Red Cell Distribution Width 15.8 Platelet Count 138 Mean Platelet Volume 7.7 Neutrophils (%) (Auto) 30.7 Lymphocytes (%) (Auto) 56.1 Monocytes (%) (Auto) 8.2 Eosinophils (%) (Auto) 3.6 Basophils (%) (Auto) 1.4 Neutrophils # (Auto) 1.6 Lymphocytes # (Auto) 2.9 Monocytes # (Auto) 0.4 Eosinophils # (Auto) 0.2 Basophils # (Auto) 0.1 CBC Comment AUTO DIFF Differential Comment AUTO DIFF CONFIRMED Platelet Estimate LOW Platelet Morphology Comment NORMAL Red Cell Morphology Comment NORMAL Prothrombin Time 12.0 Prothromb Time International Ratio 1.2 Activated Partial Thromboplast Time 25.3 Blood Urea Nitrogen 19 Creatinine 0.96 Random Glucose 94 Total Protein 7.4 Albumin 3.3 Calcium Level 8.1 Magnesium Level 2.2 Alkaline Phosphatase 50 Aspartate Amino Transf (AST/SGOT) 33 Alanine Aminotransferase (ALT/SGPT) 50 Total Bilirubin 0.6 Sodium Level 142 Potassium Level 3.7 Chloride Level 103 Carbon Dioxide Level 34.0 Anion Gap 5 Estimat Glomerular Filtration Rate 79 Total Creatine Kinase 90 54 Troponin I LESS THAN 0.02 LESS THAN 0.02 Lipase 156 Result Diagram: 12/29/17 0110 12/29/17 0110 Imaging Last 48 hours Impressions Chest X-Ray 12/29/17 0100 Signed Impressions: Service Date/Time: Friday, December 29, 2017 01:10 - CONCLUSION: No acute disease. Grover Buck MD Course EKGs have been sinus bradycardia rate of 54 and sinus rhythm rate of [address] segment depressions or elevations. Caprini VTE Risk Assessment Caprini VTE Risk Assessment: Mod/High Risk (score >= 2) Caprini Risk Assessment Model Point Value = 1 Point Value = 2 Point Value = 3 Point Value = 5 Age 41-60 Minor surgery BMI > 25 kg/m2 Swollen legs Varicose veins or History of unexplained or recurrent spontaneous Oral contraceptives or hormone replacement Sepsis (< 1 month) Serious lung disease, including pneumonia (< 1 month) Abnormal pulmonary function Acute myocardial infarction Congestive heart failure (< 1 month) History of inflammatory bowel disease Medical patient at bed rest Age 61-74 Arthroscopic surgery Major open surgery (> 45 min) Laparoscopic surgery (> 45 min) Malignancy Confined to bed (> 72 hours) Immobilizing plaster cast Central venous access Age >= 75 History of VTE Family history of VTE Factor V Leiden Prothrombin [id number] Lupus anticoagulant Anticardiolipin antibodies Elevated serum homocysteine Heparin-induced thrombocytopenia Other congenital or acquired thrombophilia Stroke (< 1 month) Elective arthroplasty Hip, pelvis, or leg fracture Acute spinal cord injury (< 1 month) Prophylaxis Regimen Total Risk Factor Score Risk Level Prophylaxis Regimen 0-1 Low Early ambulation 2 Moderate Order ONE of the following: *Sequential Compression Device (SCD) *Heparin 5000 units SQ BID 3-4 Higher Order ONE of the following medications: *Heparin 5000 units SQ TID *Enoxaparin/Lovenox 40 mg SQ daily (WT < 150 kg, CrCl > 30 mL/min) *Enoxaparin/Lovenox 30 mg SQ daily (WT < 150 kg, CrCl > 10-29 mL/min) *Enoxaparin/Lovenox 30 mg SQ BID (WT < 150 kg, CrCl > 30 mL/min) AND/OR *Sequential Compression Device (SCD) 5 or more Highest Order ONE of the following medications: *Heparin 5000 units SQ TID (Preferred with Epidurals) *Enoxaparin/Lovenox 40 mg SQ daily (WT < 150 kg, CrCl > 30 mL/min) *Enoxaparin/Lovenox 30 mg SQ daily (WT < 150 kg, CrCl > 10-29 mL/min) *Enoxaparin/Lovenox 30 mg SQ BID (WT < 150 kg, CrCl > 30 mL/min) AND *Sequential Compression Device (SCD) Assessment and Plan Assessment and Plan * Chest pain: Patient has had first 2 sets of cardiac enzymes and EKGs for ruling out purposes. He was seen by Dr. Jose Luis Escudero of cardiology in the chest pain center and will undergo a Lexiscan myocardial perfusion stress test. He will be discharged home with a stress test as nonischemic with instructions to follow-up with PCP and to return to ED for interval issues. * COPD: Patient advised to quit smoking. We will have DuoNeb's as needed. * Tobacco abuse: Patient has been counseled on importance of smoking cessation. * Schizophrenia: Resume medication at discharge. Patient is stable at this time. He is agreeable to this plan. Hugo Chavez Dec 29, 2017 12:36
--- NOTE | 2017-12-29 12:55 | RADRPT ---
EXAM DATE/TIME: 12/29/2017 10:57 [facility] COMPARISON: No previous studies available for comparison. INDICATIONS : Abdominal pain radiating to the substernal chest with dyspnea. Angina. DOSE: 25.6 mCi Tc99m Myoview at stress. 8.6 mCi Tc99m Myoview at rest. 0.4 mg Lexiscan STRESS SYMPTOMS: None. EJECTION FRACTION: 38% MEDICAL HISTORY : Chronic obstructive pulmonary disease. Schizophrenia. Smoker. SURGICAL HISTORY : Cholecystectomy. ENCOUNTER: Initial ACUITY: 1 day PAIN SCALE: 8/10 LOCATION: Substernal chest TECHNIQUE: The patient underwent pharmacologic stress with infusion of prescribed dose. Continuous ECG tracing was monitored during stress. Gated SPECT imaging was performed after stress and conventional SPECT i maging was performed at rest. The examination was performed on a SPECT/CT scanner, both attenuation and non-corrected datasets were reviewed. FINDINGS: DISTRIBUTION: The maximum perfused segment at stress is in the anterolateral wall. PERFUSION STUDY: The pattern of perfusion at stress is within normal limits. GATED STUDY: There is global hypokinesis with ejection fraction 38%. CONCLUSION: 1. No significant reversibility to suggest ischemia. 2. Global hypokinesis with ejection fraction 38%. RISK CATEGORY: High (>3% Annual Mortality Rate) Derek Scanlon MD on December 29, 2017 at 12:51 Board Certified Radiologist. This report was verified electronically.
[2017-12-29] MEDS ORDERED: RESP: ALBUTEROL 2.5 MG/IPRATROPIUM 0.5 MG NEB (PRN) INH (13:00)
--- NOTE | 2017-12-29 13:56 | HHI.DCPOC ---
Discharge Care Plan Diagnosis: (1) Chest pain (2) COPD (chronic obstructive pulmonary disease) (3) Tobacco abuse (4) Schizophrenia Goals to Promote Your Health * To prevent worsening of your condition and complications * To maintain your health at the optimal level Directions to Meet Your Goals Take your medications as prescribed Follow your dietary instruction Follow activity as directed Keep your appointments as scheduled Take your immunizations and boosters as scheduled If your symptoms worsen call your PCP, if no PCP go to Urgent Care Center or Emergency Room Smoking is Dangerous to Your Health. Avoid second hand smoke Call the 24-hour hour crisis hotline for domestic abuse at Hugo Chavez Dec 29, 2017 13:56
[2017-12-29 14:48] LABS: TROPONIN I LESS THAN 0.02 NG/ML (0.02-0.05)
--- NOTE | 2017-12-29 15:52 | EKG ---
Date Performed: 12/29/2017 Time Performed: 04:59:37 PTAGE: 62 years EKG: SINUS BRADYCARDIA BORDERLINE ECG NO PREVIOUS TRACING DOCTOR: Jose Luis Escudero Interpretating Date/Time 12/29/2017 15:51:39
--- NOTE | 2017-12-29 15:54 | EKG ---
Date Performed: 12/29/2017 Time Performed: 01:02:27 PTAGE: 62 years EKG: Sinus rhythm NONSPECIFIC T-WAVE ABNORMALITY BORDERLINE ECG NO PREVIOUS TRACING DOCTOR: Jose Lius Escudero Interpretating Date/Time 12/29/2017 15:52:54
--- NOTE | 2017-12-29 16:00 | TR ---
Date Performed: 12/29/2017 Time Performed: 11:20:13 DOCTOR: Jose Luis Escudero DRUG LIST: CLINICAL HISTORY: CHEST PAIN REASON FOR TEST: CHEST PAIN REASON FOR ENDING: OBSERVATION: CONCLUSION: COMMENTS: Lexiscan stress test was performed under standard four minute protocol. Radionuclide was injected one minute prior to ending the test. No electrocardiographic abormalities were present t o suggest ischemia. Nuclear imaging and interpretation are pending.
== END 2017-12-29 17:18 | disposition home or self-care (01) ==
LOC: NEPC 00:56 → UNDOADMOB 03:13 → NEDA 03:13 → NEDH 06:21 → NEDA 06:21 → NEPC 17:18
DX: R07.9 Chest pain, unspecified (principal); R00.1 Bradycardia, unspecified; J44.9 Chronic obstructive pulmonary disease, unspecified; F20.9 Schizophrenia, unspecified; F32.9 Major depressive disorder, single episode, unspecified; M19.90 Unspecified osteoarthritis, unspecified site; F17.210 Nicotine dependence, cigarettes, uncomplicated
CPT/HCPCS: 71045; 78452; 80053; 82550; 83690; 83735; 84484; 85025; 85610; 85730; 93005; 93017; 94664; 99284; A9502; J2785

== ENCOUNTER 2018-02-08 00:26 | Inpatient (IN) | payer OTHER ==
[~2018-02-08] VITALS: Ht 172.7 cm; Wt 72.6 kg
[~2018-02-08 00:26] MED LIST changes: +MELO7.5T27 PO; +MIRTA15 PO; +TRIH2 PO
[2018-02-08 00:44] VITALS: BP 130/90; PULSE 73; RESP 16; TEMP 97.8; O2SAT 96
[2018-02-08 02:35] VITALS: BP 141/97; PULSE 76; RESP 18; TEMP 98.2; O2SAT 98
[2018-02-08 02:53] LABS: AUTOMATED NEUTROPHIL # 3.9 TH/MM3 (1.8-7.7); BASOPHIL % 0.5 % (0.0-2.0); EOSINOPHIL # 0.1 TH/MM3 (0-0.4); EOSINOPHIL % 1.3 % (0.0-4.0); HEMATOCRIT 41.1 % (39.0-51.0); HEMOGLOBIN 14.3 GM/DL (13.0-17.0); LYMPH % 35.1 % (9.0-44.0); LYMPHOCYTE # 2.5 TH/MM3 (1.0-4.8); MEAN CELL VOLUME 91.3 FL (80.0-100.0); MEAN CORPUSCULAR HEMOGLOBIN 31.8 PG (27.0-34.0); MEAN CORPUSCULAR HGB CONC 34.8 % (32.0-36.0); MEAN PLATELET VOLUME 7.5 FL (7.0-11.0); MONO % 8.5 % (0.0-8.0); MONOCYTE # 0.6 TH/MM3 (0-0.9); NEUT % 54.6 % (16.0-70.0); PLATELET COUNT 196 TH/MM3 (150-450); RED CELL DISTRIBUTION WIDTH 15.4 % (11.6-17.2); WHITE BLOOD COUNT 7.1 TH/MM3 (4.0-11.0)
[2018-02-08 03:14] LABS: ALBUMIN 3.5 GM/DL (3.4-5.0); ALT (GPT) 36 U/L (12-78); AST (GOT) 26 U/L (15-37); BICARBONATE 32.2 MEQ/L (21.0-32.0); BLOOD UREA NITROGEN 15 MG/DL (7-18); CALCIUM 8.3 MG/DL (8.5-10.1); CHLORIDE 104 MEQ/L (98-107); CREATININE 0.78 MG/DL (0.60-1.30); GLOMERULAR FILTRATION RATE 100 ML/MIN (>89); GLUCOSE,RANDOM 96 MG/DL (74-106); SODIUM (NA) 142 MEQ/L (136-145)
[2018-02-08 03:23] LABS: ALKALINE PHOSPHATASE 53 U/L (45-117); TOTAL BILIRUBIN ADULT 0.4 MG/DL (0.2-1.0); TOTAL PROTEIN 7.9 GM/DL (6.4-8.2)
[2018-02-08 03:27] LABS: ACETAMINOPHEN LESS THAN 2.0 MCG/ML (10.0-30.0)
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
[2018-02-08 05:40] VITALS: BP 137/89; PULSE 74; RESP 17; TEMP 97.9; O2SAT 98
[2018-02-08 12:09] VITALS: BP 130/82; PULSE 72; RESP 16; O2SAT 97
[2018-02-08 17:51] VITALS: BP 108/72; PULSE 60; RESP 16; TEMP 97.2; O2SAT 98
[2018-02-08] MEDS ORDERED: ACETAMINOPHEN 325 MG TAB PO PRN (21:15)
[2018-02-08] MEDS ORDERED: MAGNESIUM HYDROXIDE SUSP 30 ML CUP PO PRN (21:15)
[2018-02-08] MEDS ORDERED: NICOTINE 21 MG/24 HR PATCH T-DERMAL PRN (21:15)
[2018-02-08] MEDS ORDERED: ALUMINUM/MAGNESIUM/SIMETH 30 ML CUP PO PRN (21:15)
[2018-02-08 23:50] VITALS: BP 125/88; PULSE 75; RESP 16; TEMP 98; O2SAT 95
[2018-02-09 06:29] VITALS: BP 119/81; PULSE 55; RESP 16; TEMP 97.3; O2SAT 95
[2018-02-09 07:07] LABS: CHOLESTEROL 157 MG/DL (120-200); TRIGLYCERIDES 81 MG/DL (42-150)
[2018-02-09 07:09] LABS: CHOLESTEROL/ HDL RATIO 4.38 RATIO; HDL CHOLESTEROL 35.8 MG/DL (40.0-60.0); LDL CHOLESTEROL 105 MG/DL (0-99)
[2018-02-09] MEDS: REMOVE OLD NICODERM (NICOTINE) PATCH T-DERMAL SCH (09:00)
[2018-02-09] MEDS: GABAPENTIN 100 MG CAP PO SCH ×3 (09:00→17:42)
[2018-02-09] MEDS: MELOXICAM 7.5 MG TAB PO SCH (09:00)
[2018-02-09] MEDS ORDERED: TRIHEXYPHENIDYL HCL 2 MG TAB PO SCH (09:00)
[2018-02-09] MEDS: HALOPERIDOL 5 MG TAB PO SCH ×2 (12:30→21:19)
[2018-02-09] MEDS ORDERED: hydrOXYzine HCL 50 MG TAB PO PRN (12:30)
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
[2018-02-09] MEDS ORDERED: TRIHEXYPHENIDYL HCL 2 MG TAB PO STA (14:35)
[2018-02-09 16:22] VITALS: BP 113/71; PULSE 61; RESP 16; TEMP 97.6; O2SAT 97
[2018-02-09] MEDS: NEOMYCIN/POLYMYXIN/BACITRACIN OINT 15 GM TUBE TOPICAL SCH (17:30)
[2018-02-09] MEDS ORDERED: DIVALPROEX SODIUM E.R. 500 MG TAB PO SCH (21:00)
[2018-02-09] MEDS: MIRTAZAPINE 15 MG TAB PO SCH (21:19)
[2018-02-09] MEDS: DIVALPROEX SODIUM E.R. 500 MG TAB PO SCH (21:20)
[2018-02-09] MEDS: diphenhydrAMINE HCL 50 MG CAP PO PRN (21:20)
[2018-02-09] MEDS: TRIHEXYPHENIDYL HCL 2 MG TAB PO SCH (21:45)
[2018-02-10 05:17] VITALS: BP_SYST 141; BP_SYST 98; BP_DIAS 54; BP_DIAS 80; PULSE 56; PULSE 74; RESP 16; TEMP 98; TEMP 98.1; O2SAT 95; O2SAT 98
[2018-02-10] MEDS: NEOMYCIN/POLYMYXIN/BACITRACIN OINT 15 GM TUBE TOPICAL SCH (08:39)
[2018-02-10] MEDS: HALOPERIDOL 5 MG TAB PO SCH ×2 (08:40→09:00)
[2018-02-10] MEDS: TRIHEXYPHENIDYL HCL 2 MG TAB PO SCH ×2 (08:40→20:58)
[2018-02-10] MEDS: GABAPENTIN 100 MG CAP PO SCH ×3 (08:40→17:27)
--- NOTE | 2018-02-10 08:52 | HHI.PYPN ---
Subjective Remarks Patient seen in his room nurse Andrea, chart review, patient compliant medications, patient discussed with nurse. Patient laying in bed calm cooperative did recognize me. Patient states he is "nightmares" last night that interrupted his sleep. Though today he denies voices or visions. Denies suicidality. Will increase Haldol to 5 mg a.m. 10 mg at bedtime. Now states would consider returning to [facility] Review of Systems Except as stated in HPI: all other systems reviewed are Neg Mental Status Examination Appearance: Disheveled Consciousness: Alert Orientation: Person, Place, Date/Time Motor Activity: Other (unable to ascertain patient laying down) Speech: Unremarkable Language: Adequate Fund of Knowledge: Adequate Attention and Concentration: Other (fair) Memory: Unremarkable (fair) Mood: Other Affect: Other (euthymic to somewhat restricted) Thought Process & Associations: Other (decreased range and intensity) Thought Content: Bizarre thinking Hallucination Type: Auditory Delusion Type: Paranoid (mild) Suicidal Ideation: No (denies this time) Suicidal Plan: No Suicidal Intention: No Homicidal Ideation: No Homicidal Plan: No Homicidal Intention: No Insight: Fair Judgment: Adequate (they are) Results Vitals/IOs Vital Signs Date Time Temp Pulse Resp B/P (MAP) Pulse Ox O2 Delivery O2 Flow Rate FiO2 02/10/18 05:17 98.0 56 16 141/80 (100) 95 02/08/18 12:09 Room Air Assessment & Plan Problem List: (1) Schizophrenia, paranoid, chronic ICD Codes: F20.0 - Paranoid schizophrenia Status: Acute Assessment & Plan Estimated LOS: days patient continue psychotic with auditory hallucinations, though is calm cooperative. He seems to be processing things somewhat better. She medication adjustment above Justification for Cont. Inpt. At this time patient decompensated placed in a lower level of care Discharge Planning Probable return to [facility] Request HC Surrog/Guard Advoc?: No Jake Overton MD Feb 10, 2018 08:52
[2018-02-10] MEDS: MELOXICAM 7.5 MG TAB PO SCH (09:00)
[2018-02-10] MEDS: REMOVE OLD NICODERM (NICOTINE) PATCH T-DERMAL SCH (09:00)
[2018-02-10 17:48] VITALS: BP 179/94; PULSE 81; RESP 16; TEMP 98.3; O2SAT 99
[2018-02-10] MEDS: DIVALPROEX SODIUM E.R. 500 MG TAB PO SCH (20:58)
[2018-02-10] MEDS: MIRTAZAPINE 15 MG TAB PO SCH (20:58)
[2018-02-10] MEDS: diphenhydrAMINE HCL 50 MG CAP PO PRN (20:58)
[2018-02-10] MEDS: HALOPERIDOL 10 MG TAB PO SCH (20:58)
[2018-02-11 05:59] VITALS: BP 114/62; PULSE 53; RESP 18; TEMP 97.4; O2SAT 97
[2018-02-11] MEDS: TRIHEXYPHENIDYL HCL 2 MG TAB PO SCH ×2 (08:21→21:23)
[2018-02-11] MEDS: HALOPERIDOL 5 MG TAB PO SCH (08:21)
[2018-02-11] MEDS: GABAPENTIN 100 MG CAP PO SCH ×3 (08:21→17:40)
[2018-02-11] MEDS: NEOMYCIN/POLYMYXIN/BACITRACIN OINT 15 GM TUBE TOPICAL SCH (08:22)
[2018-02-11] MEDS: REMOVE OLD NICODERM (NICOTINE) PATCH T-DERMAL SCH (08:23)
[2018-02-11] MEDS: MELOXICAM 7.5 MG TAB PO SCH (08:23)
--- NOTE | 2018-02-11 14:37 | HHI.PYPN ---
Subjective Remarks Patient seen in his room with her staff, chart review, patient compliant medications, patient discussed with nurse. Patient states is somewhat calmer the voices are sign to diminish the not as threatening or intrusive. Is able to denies suicidality at this time. For now continue treatment no change consider discharge on Wednesday peak continues to improve Review of Systems Except as stated in HPI: all other systems reviewed are Neg Mental Status Examination Appearance: Disheveled Consciousness: Alert Orientation: Person, Place, Date/Time Motor Activity: Other (unable to ascertain patient laying down) Speech: Unremarkable Language: Adequate Fund of Knowledge: Adequate Attention and Concentration: Other (fair) Memory: Unremarkable (fair) Mood: Other Affect: Other (euthymic to somewhat restricted) Thought Process & Associations: Other (decreased range and intensity) Thought Content: Bizarre thinking Hallucination Type: Auditory Delusion Type: Paranoid (mild) Suicidal Ideation: No (denies this time) Suicidal Plan: No Suicidal Intention: No Homicidal Ideation: No Homicidal Plan: No Homicidal Intention: No Insight: Fair Judgment: Adequate (they are) Results Vitals/IOs Vital Signs Date Time Temp Pulse Resp B/P (MAP) Pulse Ox O2 Delivery O2 Flow Rate FiO2 02/11/18 05:59 97.4 53 18 114/62 (79) 97 02/08/18 12:09 Room Air Assessment & Plan Problem List: (1) Schizophrenia, paranoid, chronic ICD Codes: F20.0 - Paranoid schizophrenia Status: Acute Assessment & Plan Estimated LOS: days patient continues psychotic though improving, the voices are somewhat less intrusive and intense. Compliant medication Justification for Cont. Inpt. At this time patient decompensated placed a lower level of care Discharge Planning Protocol return home to [facility] after the weekend Request HC Surrog/Guard Advoc?: No Jake Overton MD Feb 11, 2018 14:37
[2018-02-11 17:13] VITALS: BP 110/77; PULSE 72; RESP 17; TEMP 98.2; O2SAT 98
[2018-02-11 17:15] VITALS: BP 110/77; PULSE 72; RESP 17; TEMP 98.2; O2SAT 98
[2018-02-11] MEDS: MIRTAZAPINE 15 MG TAB PO SCH (21:22)
[2018-02-11] MEDS: DIVALPROEX SODIUM E.R. 500 MG TAB PO SCH (21:22)
[2018-02-11] MEDS: HALOPERIDOL 10 MG TAB PO SCH (21:23)
[2018-02-11] MEDS: diphenhydrAMINE HCL 50 MG CAP PO PRN (21:58)
[2018-02-12 05:54] VITALS: BP 133/74; PULSE 56; RESP 16; TEMP 96.8; O2SAT 96
[2018-02-12] MEDS: REMOVE OLD NICODERM (NICOTINE) PATCH T-DERMAL SCH (08:34)
[2018-02-12] MEDS: MELOXICAM 7.5 MG TAB PO SCH (09:21)
[2018-02-12] MEDS: HALOPERIDOL 5 MG TAB PO SCH (09:21)
[2018-02-12] MEDS: TRIHEXYPHENIDYL HCL 2 MG TAB PO SCH ×2 (09:21→21:15)
[2018-02-12] MEDS: NEOMYCIN/POLYMYXIN/BACITRACIN OINT 15 GM TUBE TOPICAL SCH (09:21)
[2018-02-12] MEDS: GABAPENTIN 100 MG CAP PO SCH ×3 (09:21→17:05)
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
[2018-02-12 17:39] VITALS: BP 129/88; PULSE 62; RESP 16; TEMP 98; O2SAT 97
[2018-02-12] MEDS: DIVALPROEX SODIUM E.R. 500 MG TAB PO SCH (21:15)
[2018-02-12] MEDS: MIRTAZAPINE 15 MG TAB PO SCH (21:15)
[2018-02-12] MEDS: HALOPERIDOL 10 MG TAB PO SCH (21:15)
[2018-02-12] MEDS: diphenhydrAMINE HCL 50 MG CAP PO PRN (21:15)
[2018-02-13 05:44] VITALS: BP 102/61; PULSE 48; RESP 16; TEMP 97.4; O2SAT 95
[2018-02-13 07:45] VITALS: BP 138/85; PULSE 61
[2018-02-13] MEDS: GABAPENTIN 100 MG CAP PO SCH ×3 (08:58→17:40)
[2018-02-13] MEDS: HALOPERIDOL 5 MG TAB PO SCH (08:58)
[2018-02-13] MEDS: REMOVE OLD NICODERM (NICOTINE) PATCH T-DERMAL SCH (08:58)
[2018-02-13] MEDS: TRIHEXYPHENIDYL HCL 2 MG TAB PO SCH ×2 (08:58→22:04)
[2018-02-13] MEDS: MELOXICAM 7.5 MG TAB PO SCH (08:58)
[2018-02-13] MEDS: NEOMYCIN/POLYMYXIN/BACITRACIN OINT 15 GM TUBE TOPICAL SCH (08:58)
--- NOTE | 2018-02-13 14:53 | HHI.PYPN ---
Subjective Remarks Reviewed electronic medical record and discussed case with staff. Patient was found in bed in his room. Follow-up performed with nurse in room. He reports that his appetite is been good and he has been sleeping well. He states that he is "kind of tired". His nurse advised that the patient was bradycardic earlier today. Had a stat EKG performed which did show sinus bradycardia with a rate of 59 and some nonspecific T-wave abnormality however patient's QT interval is within normal limits. There is no edema of the ankles and patient denies any trouble breathing. As patient remains asymptomatic we will not order a medical consult at this time. He denies being suicidal, homicidal, having auditory or visual hallucinations. Mental Status Examination Appearance: Disheveled Consciousness: Alert Orientation: Person, Place, Date/Time Motor Activity: Other (unable to ascertain patient laying down) Speech: Unremarkable Language: Adequate Fund of Knowledge: Adequate Attention and Concentration: Other (fair) Memory: Unremarkable (fair) Mood: Other Affect: Other (euthymic to somewhat restricted) Thought Process & Associations: Other (decreased range and intensity) Thought Content: Bizarre thinking Hallucination Type: Auditory Delusion Type: Paranoid (mild) Suicidal Ideation: No (denies this time) Suicidal Plan: No Suicidal Intention: No Homicidal Ideation: No Homicidal Plan: No Homicidal Intention: No Insight: Fair Judgment: Adequate (they are) Results Vitals/IOs Vital Signs Date Time Temp Pulse Resp B/P (MAP) Pulse Ox O2 Delivery O2 Flow Rate FiO2 02/13/18 07:45 61 138/85 (102) 02/13/18 05:44 97.4 16 95 Assessment & Plan Problem List: (1) Schizophrenia, paranoid, chronic ICD Codes: F20.0 - Paranoid schizophrenia Status: Acute Assessment & Plan Estimated LOS: We will continue with treatment care plan. Days Justification for Cont. Inpt. Moving this patient to a lower level of care would likely result in a decompensation. Request HC Surrog/Guard Advoc?: No Lluvia Izquierdo Feb 13, 2018 14:53
[2018-02-13 18:23] VITALS: BP 121/74; PULSE 98; RESP 16; TEMP 98.1; O2SAT 96
[2018-02-13 21:29] VITALS: BP 131/72; PULSE 75
[2018-02-13] MEDS: MIRTAZAPINE 15 MG TAB PO SCH (22:04)
[2018-02-13] MEDS: HALOPERIDOL 10 MG TAB PO SCH (22:04)
[2018-02-13] MEDS: DIVALPROEX SODIUM E.R. 500 MG TAB PO SCH (22:04)
[2018-02-14 06:27] VITALS: BP 116/77; PULSE 64; RESP 16; TEMP 98.1; O2SAT 97
--- NOTE | 2018-02-14 09:27 | EKG ---
Date Performed: 02/13/2018 Time Performed: 12:15:46 PTAGE: 62 years EKG: SINUS BRADYCARDIA NONSPECIFIC T-WAVE ABNORMALITY BORDERLINE ECG PREVIOUS TRACING : 12/29/2017 04.59 Since previous tracing, T-waves somewhat more flattened ant erolaterally, otherwise no significant change. DOCTOR: Dustin Foreman Interpretating Date/Time 02/14/2018 09:26:28
[2018-02-14] MEDS: MELOXICAM 7.5 MG TAB PO SCH (10:17)
[2018-02-14] MEDS: GABAPENTIN 100 MG CAP PO SCH ×2 (10:17→13:51)
[2018-02-14] MEDS: TRIHEXYPHENIDYL HCL 2 MG TAB PO SCH (10:17)
[2018-02-14] MEDS: HALOPERIDOL 5 MG TAB PO SCH (10:17)
[2018-02-14] MEDS: NEOMYCIN/POLYMYXIN/BACITRACIN OINT 15 GM TUBE TOPICAL SCH (10:18)
[2018-02-14] MEDS: REMOVE OLD NICODERM (NICOTINE) PATCH T-DERMAL SCH (10:21)
[2018-02-14] MEDS ORDERED: TRIH2 PO (12:23)
[2018-02-14] MEDS ORDERED: GABA100C4 PO (12:23)
[2018-02-14] MEDS ORDERED: DEPA500T3 PO (12:23)
[2018-02-14] MEDS ORDERED: MELO7.5T27 PO (12:23)
[2018-02-14] MEDS ORDERED: MIRTA15 PO (12:23)
[2018-02-14] MEDS ORDERED: HALO5TAB PO (12:23)
--- NOTE | 2018-02-14 12:27 | HHI.DS ---
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 Patient seen screened in the ED urine toxicology was not performed. Depakote blood level came back at 90, blood alcohol level was negative. Patient seen in his room with nurse nitesh, patient is alert oriented somewhat disheveled white male lives at [facility] for the past few years states he has no significant friends there. States his mother feel weeks ago this appears 7 cause some increase in his auditory hallucinations telling him to kill himself. He denies any alcohol or drug use with this. He acknowledged a past history of cocaine and marijuana use number of years ago. Patient is inclined [facility] sees Dr. Campos their states he had a Haldol shot about a week ago. At this time patient meets criteria for inpatient psychiatric hospitalization to further adjust his medications. I feel he does have capacity to sign for his admission and his medications thus I'll lift the [place] act allow her sign voluntary. We will continue medication as per the medication verification. We'll continue his Depakote Haldol and Artane as per the med reconciliation. Hopeless to fairly short stay and he returned to [facility] Tobacco Use In Past 30 Days: 5 or More Cigarettes/Day Alcohol Use: Never Hospital Course Patient's hospital course was uneventful, he showed cooperation compliance with his medication from day 1 mild he was not very social did not participate much in the area treatment her groups use no behavioral issues. There is some minor adjustments in his medication. The psychosis has resolved to a great extent. He denies suicidality homicidality is somewhat vague about voices. At this time patient reached maximum benefit of this hospitalization patient was discharged today to [facility]. Rx 1 month. To follow-up with services to that facility Results Blood Pressure 116 / 77 Vital Signs Date Time Temp Pulse Resp B/P (MAP) Pulse Ox O2 Delivery O2 Flow Rate FiO2 02/14/18 06:27 98.1 64 16 116/77 (90) 97 Laboratory Results Test 02/08/18 02:35 02/09/18 05:51 Valproic Acid (Depakene) Level 90 MCG/ML (50-100) Cholesterol Level 157 MG/DL (120-200) HDL Cholesterol 35.8 MG/DL (40.0-60.0) Hemoglobin A1c 5.0 % (4.3-6.0) LDL Cholesterol 105 MG/DL (0-99) Triglycerides Level 81 MG/DL (42-150) Summary of Procedures None done Pending results at discharge: No Medications # of Antipsychotic meds at D/C: 1 Approp Antipsych med options 1 - Minimum of three failed multiple trials of monotherapy. 2 - Documented plan to taper to monotherapy due to previous use of multiple meds OR cross-taper in progress at D/C. 3 - Documentation of augmentation of Clozapine. 4 - Justification other than those listed in allowable values 1-3, document here : Discharge Discharge Date: Feb 14, 2018 Discharge Diagnosis: (1) Schizophrenia, paranoid, chronic ICD Code: F20.0 - Paranoid schizophrenia Status: Acute Pt Condition on Discharge: Stable Discharge Disposition: [facility]/SNF Discharge Instructions Diet Instructions: As Tolerated, No Restrictions Activities you can perform: Regular-No Restrictions Scheduled Appointment: Akshat Thornton Appointment Date: Feb 22, 2018 Appointment Time: 11:00am Discharge Time > 30 minutes Mental Status Examination Appearance: Disheveled Consciousness: Alert Orientation: Person, Place, Date/Time Motor Activity: Other (unable to ascertain patient laying down) Speech: Unremarkable Language: Adequate Fund of Knowledge: Adequate Attention and Concentration: Other (fair) Memory: Unremarkable (fair) Mood: Other Affect: Other (euthymic to somewhat restricted) Thought Process & Associations: Other (decreased range and intensity) Thought Content: Bizarre thinking Hallucination Type: Auditory Delusion Type: Paranoid (mild) Suicidal Ideation: No (denies this time) Suicidal Plan: No Suicidal Intention: No Homicidal Ideation: No Homicidal Plan: No Homicidal Intention: No Insight: Fair Judgment: Adequate (they are) Discharge/Advance Care Plan Health Problems: (1) Schizophrenia, paranoid, chronic Goals to promote your health * To prevent worsening of your condition and complications * To maintain your health at the optimal level Directions to meet your goals Take your medications as prescribed Follow your dietary instruction Follow activity as directed Keep your appointments as scheduled Take your immunizations and boosters as scheduled If your symptoms worsen call your PCP, if no PCP go to Urgent Care Center or Emergency Room For 31/05 questions related to your inpatient stay or results of tests pending at discharge, please contact Dr. Jake Overton at Smoking is Dangerous to Your Health. Avoid second hand smoking Jake Overton MD Feb 14, 2018 12:27
== END 2018-02-14 14:30 | disposition short-term general hospital (02) | DRG 885 ==
LOC: NEPD 00:26 → NEDA 20:59 → H260 02-09
PROVIDERS: ADMIT Psychiatry & Neurology Psychiatry; ATTEND Psychiatry & Neurology Psychiatry
DX: F20.0 Paranoid schizophrenia (principal); R45.851 Suicidal ideations; R00.1 Bradycardia, unspecified; F32.9 Major depressive disorder, single episode, unspecified; J44.9 Chronic obstructive pulmonary disease, unspecified; F17.210 Nicotine dependence, cigarettes, uncomplicated; F41.9 Anxiety disorder, unspecified
CPT/HCPCS: 80053; 80061; 80164; 80307; 83036; 84443; 85025; 93005; 99285; Q0163

== ENCOUNTER 2018-02-17 09:19 | Emergency (ER) | payer MEDICAID, OTHER ==
[~2018-02-17] VITALS: Ht 172.7 cm; Wt 74.0 kg
[2018-02-17 09:25] VITALS: BP 125/93; PULSE 99; RESP 17; TEMP 99.4; O2SAT 96
== END 2018-02-17 10:02 | disposition left against medical advice (07) ==
LOC: NED 09:19
DX: F99 Mental disorder, not otherwise specified (principal)
CPT/HCPCS: 99281

== ENCOUNTER 2018-02-24 23:16 | Emergency (ER) | payer MEDICAID | END 2018-02-25 00:26 | disposition left against medical advice (07) | LOC: NED 23:16 | DX: Z53.21 Procedure and treatment not carried out due to patient leaving prior to being seen by health care provider (principal) | CPT/HCPCS: 99281 ==

== ENCOUNTER 2018-02-25 01:04 | Emergency (ER) | payer MEDICAID ==
[~2018-02-25] VITALS: Ht 172.7 cm; Wt 75.0 kg
[2018-02-25 01:06] VITALS: BP 137/82; PULSE 57; RESP 16; TEMP 97.3; O2SAT 97
[2018-02-25 01:58] LABS: AUTOMATED NEUTROPHIL # 2.3 TH/MM3 (1.8-7.7); BASOPHIL % 0.6 % (0.0-2.0); EOSINOPHIL # 0.1 TH/MM3 (0-0.4); EOSINOPHIL % 1.7 % (0.0-4.0); HEMATOCRIT 37.2 % (39.0-51.0); HEMOGLOBIN 12.9 GM/DL (13.0-17.0); LYMPH % 49.3 % (9.0-44.0); LYMPHOCYTE # 2.8 TH/MM3 (1.0-4.8); MEAN CELL VOLUME 90.9 FL (80.0-100.0); MEAN CORPUSCULAR HEMOGLOBIN 31.6 PG (27.0-34.0); MEAN CORPUSCULAR HGB CONC 34.7 % (32.0-36.0); MEAN PLATELET VOLUME 7.5 FL (7.0-11.0); MONO % 8.3 % (0.0-8.0); MONOCYTE # 0.5 TH/MM3 (0-0.9); NEUT % 40.1 % (16.0-70.0); PLATELET COUNT 181 TH/MM3 (150-450); RED BLOOD COUNT 4.09 MIL/MM3 (4.50-5.90); RED CELL DISTRIBUTION WIDTH 14.6 % (11.6-17.2); WHITE BLOOD COUNT 5.6 TH/MM3 (4.0-11.0)
[2018-02-25 02:30] LABS: ALBUMIN 3.2 GM/DL (3.4-5.0); ALT (GPT) 35 U/L (12-78); AST (GOT) 26 U/L (15-37); BICARBONATE 33.1 MEQ/L (21.0-32.0); BLOOD UREA NITROGEN 18 MG/DL (7-18); CALCIUM 8.1 MG/DL (8.5-10.1); CHLORIDE 105 MEQ/L (98-107); GLOMERULAR FILTRATION RATE 85 ML/MIN (>89); GLUCOSE,RANDOM 85 MG/DL (74-106); SODIUM (NA) 141 MEQ/L (136-145)
[2018-02-25 02:38] LABS: ACETAMINOPHEN LESS THAN 2.0 MCG/ML (10.0-30.0); ALKALINE PHOSPHATASE 41 U/L (45-117); TOTAL BILIRUBIN ADULT 0.4 MG/DL (0.2-1.0); TOTAL PROTEIN 7.1 GM/DL (6.4-8.2)
--- NOTE | 2018-02-25 02:42 | PD ---
HPI Chief Complaint: Psychiatric Symptoms Time Seen by Provider: 01:24 Travel History International Travel<30 days: No Contact w/Intl Traveler<30days: No Traveled to known affect area: No History of Present Illness HPI 62-year-old white male presents emergency department on a voluntary basis for psychological evaluation. Patient states that he lives at [facility]. He has a history of schizophrenia. He has not taken his medications today. He does report taking LSD 6 hours ago. He states that he would like to sleep and then see the screener and get back on his medicines. He denies any suicidal or homicidal ideation. No toxic ingestion. He states that he deliberately took the LSD. PFSH Past Medical History Arthritis: Yes Autoimmune Disease: No Anxiety: Yes Depression: Yes Cancer: No Cardiovascular Problems: No High Cholesterol: No Chemotherapy: No Chest Pain: Yes Congestive Heart Failure: No COPD: Yes Cerebrovascular Accident: No Diabetes: No Diminished Hearing: No Endocrine: No Gastrointestinal Disorders: No GERD: No Genitourinary: No Headaches: No Hiatal Hernia: No Immune Disorder: No Implanted Vascular Access Dvce: No Kidney Stones: No Musculoskeletal: Yes Neurologic: No Psychiatric: Yes Reproductive: No Respiratory: No Immunizations Current: Yes Migraines: No Radiation Therapy: No Renal Failure: No Schizophrenia: Yes Seizures: No Sickle Cell Disease: No Thyroid Disease: No Ulcer: No Tetanus Vaccination: Unknown Influenza Vaccination: No Past Surgical History Abdominal Surgery: Yes (GALL BLADDER REMOVED) AICD: No Arteriovenous Shunt: No Cardiac Surgery: No Cholecystectomy: Yes Ear Surgery: No Endocrine Surgery: No Eye Surgery: No Genitourinary Surgery: No Gynecologic Surgery: No Insulin Pump: No Joint Replacement: No Oral Surgery: No Pacemaker: No Other Surgery: Yes Social History Alcohol Use: No Tobacco Use: No Substance Use: Yes Allergies-Medications (Allergen,Severity, Reaction): Coded Allergies: No Known Allergies (Verified Allergy, Unknown, 02/25/18) Per MAR faxed by [facility] [phone]. Reported Meds & Prescriptions Reported Meds & Active Scripts Active Haloperidol 5 Mg Tab 5 Mg PO DIRECTED One by mouth a.m. 2 by mouth at bedtime Trihexyphenidyl (Trihexyphenidyl HCl) 2 Mg Tab 2 Mg PO BID Mirtazapine 15 Mg Tab 15 Mg PO HS Meloxicam 7.5 Mg Tab 7.5 Mg PO DAILY Depakote ER (Divalproex Sodium) 500 Mg Becky 1,000 Mg PO HS Gabapentin 100 Mg Cap 100 Mg PO TID Review of Systems General / Constitutional: No: Fever Eyes: No: Visual changes HENT: No: Headaches Cardiovascular: No: Chest Pain or Discomfort Respiratory: No: Shortness of Breath Gastrointestinal: No: Abdominal Pain Genitourinary: No: Dysuria Musculoskeletal: No: Pain Skin: No Rash Neurologic: No: Weakness Psychiatric: Positive: Depression, Mood Disorder, Substance Abuse, No: Anxiety , Suicidal Ideations, Disorder of Thought, Homicidal Ideation Endocrine: No: Polydipsia Hematologic/Lymphatic: No: Easy Bruising Physical Exam Narrative GENERAL: Well-nourished, well-developed patient. Resting comfortable in examination room sleeping. He awakens for exam history. SKIN: Warm and dry. HEAD: Normocephalic and atraumatic. EYES: No scleral icterus. No injection or drainage. ENT: No nasal drainage noted. Mucous membranes pink. Airway patent. NECK: Supple, trachea midline. Moves head freely without obvious discomfort. CARDIOVASCULAR: Regular rate and rhythm without murmurs, gallops, or rubs. RESPIRATORY: Breath sounds equal bilaterally. No accessory muscle use. GASTROINTESTINAL: Abdomen soft, non-tender, nondistended. EXTREMITIES: No cyanosis or edema. BACK: Nontender without obvious deformity. No CVA tenderness. NEURO: Patient is alert and oriented. no sensorimotor deficits. Nonfocal. Normal speech. PSYCH: No delusions. No auditory or visual hallucinations. Data Data Last Documented VS Vital Signs Date Time Temp Pulse Resp B/P (MAP) Pulse Ox O2 Delivery O2 Flow Rate FiO2 02/25/18 01:06 97.3 57 16 137/82 (100) 97 Orders Orders Complete Blood Count With Diff (02/25/18 01:25) Comprehensive Metabolic Panel (02/25/18 01:25) Thyroid Stimulating Hormone (02/25/18 01:25) Valproic Acid (Depakene) (02/25/18 01:25) Psych Screen (02/25/18 01:25) Drug Screen, Random Urine (02/25/18 01:25) Alcohol (Ethanol) (02/25/18 01:25) Salicylates (Aspirin) (02/25/18 01:25) Tylenol (Acetaminophen) (02/25/18 01:25) Labs Laboratory Tests Test 02/25/18 01:30 White Blood Count 5.6 TH/MM3 Red Blood Count 4.09 MIL/MM3 Hemoglobin 12.9 GM/DL Hematocrit 37.2 % Mean Corpuscular Volume 90.9 FL Mean Corpuscular Hemoglobin 31.6 PG Mean Corpuscular Hemoglobin Concent 34.7 % Red Cell Distribution Width 14.6 % Platelet Count 181 TH/MM3 Mean Platelet Volume 7.5 FL Neutrophils (%) (Auto) 40.1 % Lymphocytes (%) (Auto) 49.3 % Monocytes (%) (Auto) 8.3 % Eosinophils (%) (Auto) 1.7 % Basophils (%) (Auto) 0.6 % Neutrophils # (Auto) 2.3 TH/MM3 Lymphocytes # (Auto) 2.8 TH/MM3 Monocytes # (Auto) 0.5 TH/MM3 Eosinophils # (Auto) 0.1 TH/MM3 Basophils # (Auto) 0.0 TH/MM3 CBC Comment DIFF FINAL Differential Comment Salicylates Level LESS THAN 1.7 MG/DL Urine Opiates Screen NEG Urine Barbiturates Screen NEG Urine Amphetamines Screen NEG Urine Benzodiazepines Screen NEG Urine Cocaine Screen NEG Urine Cannabinoids Screen NEG MDM Medical Decision Making Medical Screen Exam Complete: Yes Emergency Medical Condition: Yes Medical Record Reviewed: Yes Differential Diagnosis MDM: High Differential diagnoses: Schizophrenia, schizoaffective disorder, bipolar, anxiety, depression, adjustment reaction, mood disorder NOS, ODD, depressive disorder NOS, psychosis NOS, substance induced mood disorder, infection, electrolyte abnormality, malingering. Narrative Course Mental health screening discussed with the patient. Psychiatric screen ordered. The patient reports taking LSD. He does not appear to be under the influence of substances. Patient is a poor historian and appears somnolent. He arouses for exam and falls back asleep readily. This is medical clearance for psychiatric admission Diagnosis Primary Impression: Medical clearance for psychiatric admission Condition: Derek Watts Feb 25, 2018 02:42
[2018-02-25 05:30] VITALS: BP 130/76; PULSE 82; RESP 20; O2SAT 98
[2018-02-25 07:53] VITALS: BP 179/105; PULSE 59; RESP 20; O2SAT 99
[2018-02-25 12:00] VITALS: BP 126/77; PULSE 55; RESP 15; O2SAT 98
--- NOTE | 2018-02-25 13:08 | PD ---
Physical Exam Date Seen by Provider: Feb 25, 2018 Narrative This patient has now been seen by psychiatry. He reports that he is here for a refill of his psychiatric medications. He has been informed by psychiatry that he needs to go to [facility] for [facility]. Data Data Last Documented VS Vital Signs Date Time Temp Pulse Resp B/P (MAP) Pulse Ox O2 Delivery O2 Flow Rate FiO2 02/25/18 12:00 55 15 126/77 (93) 98 Room Air 02/25/18 01:06 97.3 Orders Orders Complete Blood Count With Diff (02/25/18 01:25) Comprehensive Metabolic Panel (02/25/18 01:25) Thyroid Stimulating Hormone (02/25/18 01:25) Valproic Acid (Depakene) (02/25/18 01:25) Psych Screen (02/25/18:25) Drug Screen, Random Urine (02/25/18 01:25) Alcohol (Ethanol) (02/25/18 01:25) Salicylates (Aspirin) (02/25/18 01:25) Tylenol (Acetaminophen) (02/25/18 01:25) Diet Regular Basic (02/25/18 Breakfast) Labs Laboratory Tests Test 02/25/18 01:30 White Blood Count 5.6 TH/MM3 Red Blood Count 4.09 MIL/MM3 Hemoglobin 12.9 GM/DL Hematocrit 37.2 % Mean Corpuscular Volume 90.9 FL Mean Corpuscular Hemoglobin 31.6 PG Mean Corpuscular Hemoglobin Concent 34.7 % Red Cell Distribution Width 14.6 % Platelet Count 181 TH/MM3 Mean Platelet Volume 7.5 FL Neutrophils (%) (Auto) 40.1 % Lymphocytes (%) (Auto) 49.3 % Monocytes (%) (Auto) 8.3 % Eosinophils (%) (Auto) 1.7 % Basophils (%) (Auto) 0.6 % Neutrophils # (Auto) 2.3 TH/MM3 Lymphocytes # (Auto) 2.8 TH/MM3 Monocytes # (Auto) 0.5 TH/MM3 Eosinophils # (Auto) 0.1 TH/MM3 Basophils # (Auto) 0.0 TH/MM3 CBC Comment DIFF FINAL Differential Comment Blood Urea Nitrogen 18 MG/DL Creatinine 0.90 MG/DL Random Glucose 85 MG/DL Total Protein 7.1 GM/DL Albumin 3.2 GM/DL Calcium Level 8.1 MG/DL Alkaline Phosphatase 41 U/L Aspartate Amino Transf (AST/SGOT) 26 U/L Alanine Aminotransferase (ALT/SGPT) 35 U/L Total Bilirubin 0.4 MG/DL Sodium Level 141 MEQ/L Potassium Level 3.7 MEQ/L Chloride Level 105 MEQ/L Carbon Dioxide Level 33.1 MEQ/L Anion Gap 3 MEQ/L Estimat Glomerular Filtration Rate 85 ML/MIN Thyroid Stimulating Hormone 3rd Gen 2.210 uIU/ML Salicylates Level LESS THAN 1.7 MG/DL Urine Opiates Screen NEG Acetaminophen Level LESS THAN 2.0 MCG/ML Urine Barbiturates Screen NEG Valproic Acid (Depakene) Level 80 MCG/ML Urine Amphetamines Screen NEG Urine Benzodiazepines Screen NEG Urine Cocaine Screen NEG Urine Cannabinoids Screen NEG Ethyl Alcohol Level LESS THAN 3 MG/DL MDM Supervised Visit with DAVIAN: No Diagnosis Primary Impression: Medical clearance for psychiatric admission Additional Instruction: Follow up at [facility] Disposition: 01 DISCHARGE HOME Condition: Stable Jen Hernandez MD Feb 25, 2018 13:08
== END 2018-02-25 13:43 | disposition home or self-care (01) ==
LOC: NEPD 01:04
DX: F20.9 Schizophrenia, unspecified (principal); F32.9 Major depressive disorder, single episode, unspecified; F16.90 Hallucinogen use, unspecified, uncomplicated; Z79.899 Other long term (current) drug therapy
CPT/HCPCS: 80053; 80164; 80307; 84443; 85025; 99283